=== PATIENT | female | born 1960 | race Caucasian/White ===

== ENCOUNTER 2017-11-25 13:06 | Emergency (ER) | payer BC, SELFPAY ==
[2017-11-25 13:07] VITALS: BP 127/73; PULSE 92; RESP 18; TEMP 36.8; O2SAT 98; BMI 36.8
[2017-11-25] MEDS: Acetaminophen 500 MG Tablet 1000 MG PO (14:01)
[2017-11-25] MEDS: Ondansetron ODT 4 MG Tablet 8 MG PO (14:01)
[2017-11-25 14:06] LABS: Bedside Glucose 149 mg/dL (70-110)
--- NOTE | 2017-11-25 15:28 | ED.DCSUM_ITS ---
- ER Visit Summary Date of Service: 11/25/17 Chief Complaint: Reaction to antibiotic History of Present Illness: The patient is a 57 F who presents with multiple symptoms after taking a dose of Bactrim. The patient was diagnosed with cellulitis in her left axilla and treated with Bactrim. She took 1 dose. Today she is having shaking, itching, nausea, vomiting, and a headache. She took Benadryl with minimal relief. Physical Examination: Patient is afebrile and vital signs are unremarkable. She appears uncomfortable but not toxic or in distress. HEENT exam unremarkable. Mucous membranes normal with no lesions. Eyes normal. Neck nontender. Heart regular. Lungs clear. Abdomen soft and nontender skin appears normal without rash except her left axilla shows signs of folliculitis with surrounding erythema concerning for cellulitis. No abscess or fluctuance. Test Results: Glucose was 149 Emergency Department Course and Treatment: Patient sounds like she is having an adverse reaction to Bactrim, primarily with GI upset. She has no new rash or signs of a more severe infection. She is not septic, and there is nothing to suggest complication from her skin infection. Her exam and vital signs are all reassuring. I checked her blood sugar as she has not checked it today. It was 149. I do not find any indication for other diagnostic testing. She was treated with Zofran and Tylenol. On reevaluation, she passed a PO challenge. Her headache had improved. No new or worsening symptoms. Patient will be changed to clindamycin. She will stop taking Bactrim. We will also add Zofran. Return for any new or worsening issues, otherwise follow-up with primary care. Treatment Plan: As above Disposition: Discharged Impression: 1. Folliculitis left axilla 2. Adverse reaction to Bactrim This note was generated with [employer] dictation software. It may contain incorrect words, spelling, and punctuation that were not noted in review of the chart prior to signing ED Disposition - Plan for ED Patient: Chief Complaint: Shortness of Breath Referrals: Praful Magdaleno DO [Primary Care Provider] -
--- NOTE | 2017-11-25 15:28 | ED.DEP ---
ED Disposition - Plan for ED Patient: Chief Complaint: Shortness of Breath Instructions: ED Folliculitis Prescriptions: Ondansetron [Zofran Odt] 4 mg PO Q8H PRN PRN #10 tab PRN Reason: Nausea Clindamycin HCl [Cleocin] 300 mg PO Q6H #28 cap Referrals: Praful Magdaleno DO [Primary Care Provider] -
[2017-11-25 15:56] VITALS: BP 124/71; PULSE 82; RESP 16; O2SAT 100
--- NOTE | 2017-11-26 13:01 | CM.ED ---
ED CALLBACK: Follow-up call to patient. No answer and voicemail is not an option. Will reattempt call as time allows.
== END 2017-11-25 15:58 | disposition home or self-care (01) ==
PROVIDERS: Emergency Provider Emergency Medicine; Family Provider Family Medicine; PCP Family Medicine
DX: L73.9 Follicular disorder, unspecified (principal); R51 Headache; T37.0X5A Adverse effect of sulfonamides, initial encounter; Y92.9 Unspecified place or not applicable; E11.9 Type 2 diabetes mellitus without complications; I10 Essential (primary) hypertension; E03.9 Hypothyroidism, unspecified; Z79.4 Long term (current) use of insulin; Z79.899 Other long term (current) drug therapy
CPT/HCPCS: 82962; 99282

== ENCOUNTER 2018-02-11 18:01 | Emergency (ER) | payer BC, SELFPAY ==
[2018-02-11 18:01] VITALS: BP 157/110; PULSE 91; RESP 16; TEMP 36.7; O2SAT 97; BMI 36.8
--- NOTE | 2018-02-11 20:18 | RAD_ITS ---
STUDY: X-RAY - LUMBAR SPINE REASON FOR EXAM: Female, 57 years old. Low back pain and radiculopathy. TECHNIQUE: 3 view(s) of the lumbar spine were obtained. COMPARISON: None FINDINGS: Normal lumbar lordosis. There is no substantial scoliosis. There is a normal alignment of the vertebrae. Normal vertebral bodies and endplates. Mild diffuse degenerative disc narrowing and minimal spondylitic endplate changes at L1-2, L2-3, L3-4 and L4-5. Normal posterior elements. The soft tissue structures are unremarkable. RAD/Lumbar Spine 2 or 3 Views IMPRESSION: Normal alignment of the lumbar spine without fracture, osteolytic or blastic bone lesion. Mild diffuse degenerative disc changes. Electronically Signed: Daisha Finn MD at 20:43 EDT , Service support ,
--- NOTE | 2018-02-11 20:18 | RAD_ITS ---
STUDY: X-RAY - PELVIS REASON FOR EXAM: Female, 57 years old. Low back pain radiating to legs. TECHNIQUE: One view of the pelvis was obtained. COMPARISON: None. FINDINGS: There is a non-specific bowel gas pattern. Normal visualized soft tissue structures. Enthesophyte of the iliac crests. The pelvic ring is otherwise unremarkable. Normal SI joints and sacral landmarks. Normal visualized bilateral superior and inferior pubic rami. Normal pubic symphysis. Normal ischial tuberosities. Normal visualized right femoral head. Normal right acetabulum. Normal right hip joint. Normal visualized left femoral head. Normal left acetabulum. Normal left hip joint. RAD/Pelvis 1 or 2 Views IMPRESSION: Enthesophytes of the iliac crests. Otherwise normal pelvis and hips. Electronically Signed: Daisha Finn MD at 20:46 EDT , Service support ,
[2018-02-11] MEDS: HYDROmorphone 1 MG/ML Syringe IM (21:01)
[2018-02-11] MEDS: Orphenadrine 60 MG/2 ML Ampul IM (21:01)
--- NOTE | 2018-02-11 22:03 | ED.VISSUMM ---
- ER Visit Summary Date of Service: 02/11/18 Chief Complaint: [Back pain] History of Present Illness: The patient is a 57 F [presents to the emergency department complaint of back pain for 2 weeks. Patient rates her pain currently is a 9 out of 10. Patient denies any direct trauma. Patient states that she was seen by her chiropractor who adjusted her followed by her primary care physician and no imaging was done. Patient complains of pain that radiates into her right leg as well as her left leg at times. The pain radiating into the legs is intermittent. She denies any change in bowel or bladder function. She denies weakness the extremities. She denies loss of sensation in the groin. Patient's not had any fevers. She denies urinary symptoms.] Physical Examination: [HEENT-PERRLA, EOMI. Cranial nerves II through XII grossly intact. TMs clear. Mucous membranes moist. No adenopathy. Cardiovascular-regular rate and rhythm without murmur or ectopy Lungs-clear to auscultation, chest wall stable without crepitus or subcu emphysema Abdomen-normoactive bowel sounds, soft, nontender, no rebound or rigidity, no peritoneal signs. Back exam-patient has some diffuse tenderness over lumbar paraspinal musculature bilaterally as well as the lumbar spine. Patient has a positive straight leg raise with the right leg at 40 degrees. Deep tendon reflexes are plus 2 out of 4 bilaterally at the patella and Achilles. Patient has normal L5 extension bilaterally. Patient has normal sensation to light touch. Extremities-intact ?4, normal range of motion, normal pulses, atraumatic] Test Results: [X-rays of the lumbar spine and pelvis obtained showed some mild degenerative changes otherwise nothing acute.] Emergency Department Course and Treatment: [Patient was medicated with Dilaudid and Norflex and had good pain relief] Treatment Plan: [Patient will be given a prescription for Flexeril and [place] and advised to follow-up with primary care physician 3-5 days. Patient may require further imaging such as MRI to evaluate further if symptoms do not improve. Patient advised to return if worsening pain and advised on signs of cauda equina.] Disposition: [Discharged home in stable condition] Impression: [Back pain Sciatica] This note was generated with [employer] software. It may contain incorrect words, spelling, and punctuation that were not noted in review of the chart prior to signing ED Disposition - Plan for ED Patient: Chief Complaint: Back Referrals: Praful Magdaleno DO [Primary Care Provider] -
--- NOTE | 2018-02-11 22:06 | ED.DEP ---
ED Disposition - Plan for ED Patient: Chief Complaint: Back Instructions: ED Sciatica Prescriptions: Hydrocodone Bitart/Apap 5-325 [[place] 5MG-325MG] 1 tab PO Q4H PRN PRN 2 Days #20 tab PRN Reason: Pain Cyclobenzaprine [Flexeril] 10 mg PO TID PRN #20 tab PRN Reason: Muscle Spasm Referrals: Praful Magdaleno DO [Primary Care Provider] - 3-5 Days
[2018-02-11 22:13] VITALS: BP 154/94; PULSE 81; RESP 16; O2SAT 94
== END 2018-02-11 22:15 | disposition home or self-care (01) ==
LOC: ED 20:23
PROVIDERS: Emergency Provider Emergency Medicine; Family Provider Family Medicine; PCP Family Medicine
DX: M54.9 Dorsalgia, unspecified (principal); M54.32 Sciatica, left side; M54.31 Sciatica, right side; E11.9 Type 2 diabetes mellitus without complications; I10 Essential (primary) hypertension; E78.00 Pure hypercholesterolemia, unspecified; Z79.899 Other long term (current) drug therapy; Z79.82 Long term (current) use of aspirin; E03.9 Hypothyroidism, unspecified
CPT/HCPCS: 72100; 72170; 96372; 99282

== ENCOUNTER 2018-02-13 12:42 | Emergency (ER) | payer BC, SELFPAY ==
[2018-02-13 12:42] VITALS: BP 161/99; PULSE 96; RESP 17; TEMP 36.5; O2SAT 98; BMI 37.0
--- NOTE | 2018-02-13 13:19 | VDLE_ITS ---
Reason For Study: Swelling RLE RIGHT LEFT GSV is normal. CFV is compressible, spontaneous, phasic, CFV is compressible, spontaneous, phasic, competent, and demonstrates normal competent and demonstrates normal augmentation. augmentation. FV is compressible, spontaneous, phasic, competent and demonstrates normal augmentation. POP V is compressible, spontaneous, phasic, competent and demonstrates normal augmentation. T/P Trunk is compressible. PTV is compressible. RT PerV is compressible. Procedure Exam performed portable in ED. A preliminary report was called and/or faxed to Dr. Mora. Interpretation Summary Deep veins of the right lower extremity are patent and compressible segmentally. There is no evidence of right lower extremity deep vein thrombosis. Valvular competence appears intact within the proximal deep venous system on the right . The right greater saphenous vein appears patent and compressible segmentally. Ordering Physician: Estelle Mora Referring Physician: Praful Magdaleno Performed By: Ursula Valencia RDCS, RVT
[2018-02-13] MEDS: oxyCODONE 5 MG Tablet PO (13:30)
--- NOTE | 2018-02-13 13:54 | RAD_ITS ---
STUDY: X-RAY - RIGHT KNEE REASON FOR EXAM: Female, 57 years old. Posterior knee pain TECHNIQUE: 4 view(s) of the knee. COMPARISON: None. FINDINGS: Normal visualized distal femur. Normal visualized proximal tibia and fibula. Normal proximal tibiofibular articulation. There is mild degenerative arthrosis of the medial femorotibial compartment. There is mild degenerative arthrosis of the lateral femorotibial compartment. There is mild degenerative arthrosis of the patellofemoral articulation. There is a soft tissue prominence in the suprapatellar region suggesting a small volume joint effusion. The soft tissue structures are unremarkable. RAD/Knee 4 or More Views IMPRESSION: Degenerative change right knee. No visualized acute fracture. Electronically Signed: Vera Reynoso MD at 15:47 EDT Tel , Service support ,
--- NOTE | 2018-02-13 16:12 | DCINST.ED_ITS ---
ED Disposition - Plan for ED Patient: Chief Complaint: Lower Extremity Injury Instructions: ED Sprain Knee Prescriptions: Hydrocodone Bitart/Apap 5-325 [[place] 5MG-325MG] 1 tablet PO Q6H PRN PRN 3 Days #10 tablet PRN Reason: Pain Referrals: Praful Magdaleno DO [Primary Care Provider] - Rubin Dubon MD [STAFF PHYSICIAN] -
--- NOTE | 2018-02-13 16:15 | ED.VISSUMM ---
- ER Visit Summary Date of Service: 02/13/18 Chief Complaint: Right knee pain History of Present Illness: The patient is a 57 F presenting with right knee pain. Patient states she got up today and felt a pop in her right knee. She has had persistent pain since that time. She denies any direct trauma to her knee. Denies fever. Denies other complaints. Physical Examination: Vitals are stable. Patient is afebrile. Alert no acute distress. HEENT exam is unremarkable. Lungs are clear and equal bilaterally. Heart is regular rate and rhythm. Extremities right posterior knee tenderness. No swelling or effusion. No erythema or warmth. Neurovascularly intact distally. Painful range of motion. Skin is warm and dry. No focal neurologic deficit. Remainder of exam is unremarkable. Emergency Department Course and Treatment: Ultrasound of the right lower extremity shows no evidence of DVT. X-ray of the right knee shows no acute process. She was given OxyIR p.o. She continued to have pain and was given morphine and Zofran IM. She has crutches that she can use at home. She will follow-up with Dr. Dubon. She is advised return to ED if worsening complaints. Disposition: Discharge home Impression: Right knee pain This note was generated with [employer] dictation software. It may contain incorrect words, spelling, and punctuation that were not noted in review of the chart prior to signing ED Disposition - Plan for ED Patient: Chief Complaint: Lower Extremity Injury Instructions: ED Sprain Knee Prescriptions: Hydrocodone Bitart/Apap 5-325 [[place] 5MG-325MG] 1 tablet PO Q6H PRN PRN 3 Days #10 tablet PRN Reason: Pain Referrals: Praful Magdaleno DO [Primary Care Provider] - Rubin Dubon MD [STAFF PHYSICIAN] -
[2018-02-13] MEDS: Ondansetron 4 MG/2 ML Vial IM (16:25)
[2018-02-13] MEDS: morphine 8 MG/ML Syringe 6 MG IM (16:25)
[2018-02-13 16:45] VITALS: PULSE 68; RESP 14
== END 2018-02-13 16:46 | disposition home or self-care (01) ==
PROVIDERS: Emergency Provider Emergency Medicine; Family Provider Family Medicine; PCP Family Medicine
DX: M25.561 Pain in right knee (principal); E11.9 Type 2 diabetes mellitus without complications; I10 Essential (primary) hypertension; F32.9 Major depressive disorder, single episode, unspecified
CPT/HCPCS: 73564; 93971; 96372; 99282; J2405

== ENCOUNTER → 2018-04-01 10:35 | Outpatient (CLI) | payer BC, SELFPAY ==
--- NOTE | 2018-04-01 10:48 | EKG12_ITS ---
Test Reason : PREOP Blood Pressure : / mmHG Vent. Rate : 106 BPM Atrial Rate : 106 BPM P-R Int : 146 ms QRS Dur : 074 ms QT Int : 364 ms P-R-T Axes : 057 023 049 degrees QTc Int : 483 ms Sinus tachycardia Otherwise normal ECG Confirmed by NUBIA RODRIGUEZ, SAMSON ([id number]), video effects editor TAWANNA VÁSQUEZ ([id number]) on 04/03/2018 2:00:37 PM Referred By: Ej Griffith Confirmed By:SAMSON DELACRUZ MD
[2018-04-01 11:43] LABS: Absolute Lymphocyte Count 3.08 X10^3/ul (0.83-4.51); Absolute Neutrophil Count 4.3 X10^3/uL (2.0-7.7); Basophil# 0.03 X10^3/uL; Basophil% 0.4 % (0-1); Eosinophil# 0.16 X10^3/uL; Eosinophils% 1.9 % (0-5); Hematocrit 47.5 % (37-47); Hemoglobin 15.9 g/dl (12.0-15.0); Lymphocyte # 3.08 X10^3/ul (4.0); Mean Corp Hgb Conc 33.5 g/gl (32-36); Mean Corpuscular Hgb 29.8 pg (27.0-32.0); Mean Platelet Vol. 10.4 fl (6.2-12.0); Monocyte# 0.99 X10^3/uL; Monocyte% 11.6 % (0-10); Neutrophil # 4.28 X10^3/uL (2.7-7.7); Platelet Count 296 K/mm3 (150-450); RBC Distribution Width CV 14.5 % (11.6-14.6); RBC Distribution Width SD 47.2 fl (35.1-43.9); Red Blood Count 5.34 M/mm3 (4.2-5.4); White Blood Count 8.6 K/mm3 (4.4-11.0)
[2018-04-01 11:45] LABS: POSITIVE COUNT NO; POSITIVE DIFFERENTIAL NO; POSITIVE MORPHOLOGY NO
[2018-04-01 12:04] LABS: Hemoglobin A1c 7.2 % (4.2-6.3)
[2018-04-01 12:08] LABS: Anion Gap 10 (5-15); BUN 26 mg/dL (7-18); BUN/Creat Ratio 27.5 RATIO (10-20); Chloride 99 mmol/L (98-107); Creatinine, Serum 0.94 mg/dL (0.55-1.02); EST Glomerular Filtration Rate 65 mL/min (>60); Est Glom Filt Rate - Afr Amer 79 mL/min (>60); Glucose 146 mg/dL (74-106); Potassium 3.5 mmol/L (3.5-5.1); Sodium Level 141 mmol/L (136-145)
--- OUTSIDE RECORDS SUMMARY | 2018-05-27 19:04 | XMS RPT_ITS ---
:1960 Author Organization [place] Care Team Providers Name Role Phone JOEL GARCIA MD Attending Unavailable SHARLA DO, PRAFUL D Primary Care Unavailable NICOLE FERREIRA, DR. ESCUDERO Attending Unavailable SHARLA DO, PRAFUL D Primary Care Unavailable Sharla, Praful Primary Care Unavailable Casey Brown Attending Unavailable Sharla, Praful Primary Care Unavailable Fox Rod Attending Unavailable [place], Praful Primary Care Unavailable [place], Remus Attending Unavailable [place], Praful Primary Care Unavailable [facility], [place]elle Attending Unavailable Ej Griffith Attending Unavailable Ej Griffith Referring Unavailable Sharla, Praful Primary Care Unavailable Wilber Madrid Attending Unavailable Ej Griffith Referring Unavailable PROBLEMS PROBLEMS DATE TYPE CONDITION / CODE ATTENDING STATUS SOURCE 04/01/2018 Unknown Z01.818 - Encounter Ej Griffith Active [place] for other [facility] preprocedural Hospital examination / Repository Z01.818(ICD-10) 04/01/2018 Unknown Z01.810 - Encounter Ej Griffith Active [place]ián for preprocedural [facility] cardiovascular Hospital examination / Repository Z01.810(ICD-10) 04/10/2018 Unknown R00.0 - Tachycardia, Wilber Madrid Active Fabián unspecified / Community R00.0(ICD-10) Hospital Repository 02/13/2018 Unknown S83.91XA - Sprain of [facility], Active [place] unspecified site of [facility] right knee, initial Hospital encounter / Repository S83.91XA(ICD-10) 02/11/2018 Unknown M54.30 - Sciatica, Ungur, Remus Active [place] unspecified side / Community M54.30(ICD-10) Hospital Repository PROCEDURES PROCEDURES No Procedure Records FoundRESULTS RESULTS 12 LEAD ELECTROCARDIOGRAM Observed: 04/03/2018 Status: F Source: [place] 2:00 PM [facility] REPOSITORY [facility] Cardiovascular Services [address] [place] [address] 12 Lead EKG 04/01/18 1110 MR#: [id number] Acct: [id number] Name: VIVIAN SOUSA Jamilah Rep #: [id number] : 1960 57 From: Wilber Madrid MD Attending Dr: Ej Mcclain Status: REG CLI Ordering Dr: Ej Griffith PA-C Date: 04/01/18 Location: LAB Sex: F C Admitted: Test Reason : PREOP Blood Pressure : / mmHG Vent. Rate : 106 BPM Atrial Rate : 106 BPM P-R Int : 146 ms QRS Dur : 074 ms QT Int : 364 ms P-R-T Axes : 057 023 049 degrees QTc Int : 483 ms Sinus tachycardia Otherwise normal ECG Confirmed by NUBIA RODRIGUEZ, WILBER ([id number]), loan expeditor TAWANNA VÁSQUEZ ([id number]) on 04/03/2018 2:00:37 PM Referred By: Ej Griffith Confirmed By:WILBER MADRID MD 04/03/18 1400 Date Wilber Madrid MD CC: Praful Magdaleno DO; Ej Griffith PA Signed CBC W/DIFF, AUTOMATED Collected: 04/01/2018 Status: F Source: [place] 10:41 AM [facility] REPOSITORY TYPE CODE TESTS RESULT OUT OF RANGE REFERENCE UNITS LAB L100.1000 4.4-11.0 K/mm3 Normal WBC 8.6 LAB L100.1200 4.2-5.4 M/mm3 Normal RBC 5.34 LAB L100.1300 12.0-15.0 g/dl High HGB 15.9 LAB L100.1400 37-47 % High HCT 47.5 LAB L100.1500 81-99 fL Normal MCV 89.0 LAB L100.1600 27.0-32.0 pg Normal MCH 29.8 LAB L100.1700 32-36 g/gl Normal MCHC 33.5 LAB L100.1810 11.6-14.6 % Normal RDW CV 14.5 LAB L100.1820 35.1-43.9 fl High RDW SD 47.2 LAB L100.1900 150-450 K/mm3 Normal PLT 296 LAB L100.2000 6.2-12.0 fl Normal MPV 10.4 LAB L100.2100 47-70 % Normal NEUT% 50.0 LAB L100.2200 19-41 % Normal LY% 36.0 LAB L100.2300 0-10 % High MONO% 11.6 LAB L100.2400 0-5 % Normal EO% 1.9 LAB L100.2500 0-1 % Normal BASO% 0.4 LAB L100.2550 0.0-0.9 % Normal IM GRAN % 0.100 Result Comment: IG% - Immature Granulocytes (promyelocytes, myelocytes and metamyelocytes) > 1% indicates that a LEFT SHIFT is Present. LAB L100.2620 2.0-7.7 X10 3/uL Normal Absolute Neut 4.3 LAB L100.2720 0.83-4.51 X10 3/ul Normal Absolute Lymph 3.08 Performed By: #### L100.0100 #### [facility] [address] [place], [address] HEMOGLOBIN A1C Collected: 04/01/2018 Status: F Source: [place] 10:41 AM [facility] REPOSITORY TYPE CODE TESTS RESULT OUT OF RANGE REFERENCE UNITS LAB L501.9985 4.2-6.3 % High HGB A1C 7.2 Performed By: #### L501.9985 #### [facility] [address] [place], [address] BASIC METABOLIC Collected: 04/01/2018 Status: F Source: [place] PROFILE (BMP) 10:41 AM [facility] REPOSITORY TYPE CODE TESTS RESULT OUT OF RANGE REFERENCE UNITS LAB L501.0100 74-106 mg/dL High GLU 146 Result Comment: Fasting Glucose result greater than or equal to 126 mg/dL suggests DIABETES MELLITUS per A.D.A. criteria. Please note revised GLUCOSE reference range effective 2017. LAB L501.1000 7-18 mg/dL High BUN 26 LAB L501.1100 0.55-1.02 mg/dL Normal CREAT,SERUM 0.94 Result Comment: The validity of the calculated GFR AND GFRAA in patients over 70 years has not been determined. Clinical correlation is essential. LAB L501.1110 >60 mL/min Normal EST GFR 65 Result Comment: Non- GFR Calc LAB L501.1115 >60 mL/min Normal EST GFR - AA 79 Result Comment: GFR Calc LAB L501.1300 10-20 RATIO High BUN/CRE 27.5 LAB L501.2200 8.5-10.1 mg/dL CA Normal 10.0 LAB L501.5300 136-145 mmol/L NA Normal 141 LAB L501.5600 3.5-5.1 mmol/L K Normal 3.5 LAB L501.5900 98-107 mmol/L CL Normal 99 LAB L501.6100 21.0-32.0 mmol/L Normal CO2 32.0 LAB L501.6200 5-15 Normal GAP 10 Performed By: #### L500.2500 #### [facility] [address] [place], [address] FINAL SURGICAL Observed: 02/23/2018 Status: F Source: [facility] PATHOLOGY REPORT 11:15 AM [facility] REPOSITORY . Pathology Reports Accession: Collected Date/Time: Received Date/Time: Pathologist: [id number] 02/23/2018 11:15 EDT 02/24/2018 08:32 EDT MD RIC MUNROE Final Surgical Pathology Report DIAGNOSIS: STOMACH, BIOPSY: MILD CHRONIC GASTRITIS. NEGATIVE FOR H. PYLORI. COMMENT: D # [id number] CLINICAL INFORMATION: Procedure: EGD WITH ANTRAL GASTRIC BIOPSIES Preoperative diagnosis: GERD Postoperative diagnosis: SAME SPECIMEN: A STOM, BX- ANTRAL GASTRIC BIOPSIES GROSS DESCRIPTION: Received in formalin labeled gastric antrum biopsy are 3 barrett glistening soft tissues ranging from 0.3-0.9 cm. TS -1 Dictated by Karmen GUILLEN ([facility]) MICROSCOPIC DESCRIPTION: Slides reviewed. Electronically Signed by Pathology Report verified by [facility] Electronically signed by RIC MUNROE MD Sign out Date: 02/25/2018 12:30 Performing Lab: [facility], [address] [place] [address] Performed By: #### SPFR #### [place] [address] VENOUS DUPLEX LOWER Observed: 02/15/2018 Status: F Source: [place] EXTREMITY 9:15 AM [facility] REPOSITORY [facility] Cardiovascular Services [address] [place] [address] Venous Duplex US, Unilateral 02/13/18 1328 MR#: [id number] Acct: [id number] Name: VIVIAN SOUSA Rep #: [id number] : 1960 57 From: Devon Godinez MD Attending Dr: Status: DEP ER Ordering Dr: Estelle Mora MD Date: 02/13/18 Location: ED Sex: F C Admitted: Reason For Study: Swelling RLE RIGHT LEFT GSV is normal. CFV is compressible, spontaneous, phasic, CFV is compressible, spontaneous, phasic, competent, and demonstrates normal competent and demonstrates normal augmentation. augmentation. FV is compressible, spontaneous, phasic, competent and demonstrates normal augmentation. POP V is compressible, spontaneous, phasic, competent and demonstrates normal augmentation. T/P Trunk is compressible. PTV is compressible. RT PerV is compressible. Procedure Exam performed portable in ED. A preliminary report was called and/or faxed to Dr. Mora. Interpretation Summary Deep veins of the right lower extremity are patent and compressible segmentally. There is no evidence of right lower extremity deep vein thrombosis. Valvular competence appears intact within the proximal deep venous system on the right . The right greater saphenous vein appears patent and compressible segmentally. Ordering Physician: Estelle Mora Referring Physician: Praful Magdaleno Performed By: Ursula Valencia, SANDRA, RVT 02/15/18913 Date Devon Godinez MD CC: Estelle Mora MD; Praful Magdaleno DO Date Dictated: 02/13/18 1328 Date Transcribed: 02/15/18913 Office Rental Clerk: Signed EMERGENCY DEPARTMENT Observed: 02/13/2018 Status: F Source: [place] SUMMARY 4:18 PM [facility] REPOSITORY [facility] Medical Records Department [address] [place] [address] Emergency Department Summary 02/13/18 1615 MR#: [id number] Acct: [id number] Name: VIVIAN SOUSA Rep #: [id number] : 1960 57 From: Estelle Mora MD PCP: Praful Magdaleno DO Status: DEP ER - ER Visit Summary Date of Service: 02/13/18 Chief Complaint: Right knee pain History of Present Illness: The patient is a 57 F presenting with right knee pain. Patient states she got up today and felt a pop in her right knee. She has had persistent pain since that time. She denies any direct trauma to her knee. Denies fever. Denies other complaints. Physical Examination: Vitals are stable. Patient is afebrile. Alert no acute distress. HEENT exam is unremarkable. Lungs are clear and equal bilaterally. Heart is regular rate and rhythm. Extremities right posterior knee tenderness. No swelling or effusion. No erythema or warmth. Neurovascularly intact distally. Painful range of motion. Skin is warm and dry. No focal neurologic deficit. Remainder of exam is unremarkable. Emergency Department Course and Treatment: Ultrasound of the right lower extremity shows no evidence of DVT. X-ray of the right knee shows no acute process. She was given OxyIR p.o. She continued to have pain and was given morphine and Zofran IM. She has crutches that she can use at home. She will follow-up with Dr. Dubon. She is advised return to ED if worsening complaints. Disposition: Discharge home Impression: Right knee pain This note was generated with [employer] dictation software. It may contain incorrect words, spelling, and punctuation that were not noted in review of the chart prior to signing ED Disposition - Plan for ED Patient: Chief Complaint: Lower Extremity Injury Instructions: ED Sprain Knee Prescriptions: Hydrocodone Bitart/Apap 5-325 [[place] 5MG-325MG] 1 tablet PO Q6H PRN PRN 3 Days #10 tablet PRN Reason: Pain Referrals: Praful Magdaleno DO [Primary Care Provider] - Rubin Dubon MD [STAFF PHYSICIAN] - What to do if you have Problems For any increased pain, shortness of breath, bleeding, nausea or vomiting, chest pain, or any unexpected problems, contact your Primary Care Provider. Call [facility] ([phone]) or report to the closest Emergency Room. Call 911 if necessary. 02/13/18 5524 <Electronically signed by Estelle Mora MD> Date Estelle Mora MD Cosigner Signature (If Indicated): Date CC: Praful Magdaleno DO DISCHARGE INSTRUCTION Observed: 02/13/2018 Status: F Source: [place] 4:12 PM [facility] REPOSITORY [facility] Medical Records Department [address] [place] [address] Discharge Instruction 02/13/181609 MR#: [id number] Acct: [id number] Name: VIVIAN SOUSA Rep #: [id number] : 1960 57 From: Estelle Mora MD PCP: Praful Magdaleno DO Status: REG ER ED Disposition - Plan for ED Patient: Chief Complaint: Lower Extremity Injury Instructions: ED Sprain Knee Prescriptions: Hydrocodone Bitart/Apap 5-325 [[place] 5MG-325MG] 1 tablet PO Q6H PRN PRN 3 Days #10 tablet PRN Reason: Pain Referrals: Praful Magdaleno DO [Primary Care Provider] - Rubin Dubon MD [STAFF PHYSICIAN] - What to do if you have Problems For any increased pain, shortness of breath, bleeding, nausea or vomiting, chest pain, or any unexpected problems, contact your Primary Care Provider. Call [facility] ([phone]) or report to the closest Emergency Room. Call 911 if necessary. 02/13/181611 <Electronically signed by Estelle Mora MD> Date Estelle Mora MD Cosigner Signature (If Indicated): Date CC: Praful Magdaleno DO KNEE 4 OR MORE Observed: 02/13/2018 Status: F Source: [place] VIEWS 1:20 PM [facility] REPOSITORY [facility] Imaging Services [address] [place] [address] Knee 4 or More Views MR#: [id number] Acct: [id number] Name: VIVIAN SOUSA Rep #: [id number] : 1960 F 57 From: Vera Reynoso MD PCP: Praful Magdaleno DO Status: REG ER Study: Knee 4 or More Views Date of Exam: 02/13/18 Exam# [id number] Ordering Dr: Estelle Mora MD STUDY: X-RAY - RIGHT KNEE REASON FOR EXAM: Female, 57 years old. Posterior knee pain TECHNIQUE: 4 view(s) of the knee. COMPARISON: None. FINDINGS: Normal visualized distal femur. Normal visualized proximal tibia and fibula. Normal proximal tibiofibular articulation. There is mild degenerative arthrosis of the medial femorotibial compartment. There is mild degenerative arthrosis of the lateral femorotibial compartment. There is mild degenerative arthrosis of the patellofemoral articulation. There is a soft tissue prominence in the suprapatellar region suggesting a small volume joint effusion. The soft tissue structures are unremarkable. RAD/Knee 4 or More Views IMPRESSION: Degenerative change right knee. No visualized acute fracture. Electronically Signed: Vera Reynoso MD at 15:47 EDT Tel , Service support , CC: Estelle Mora MD; Praful Magdaleno DO Office Rental Clerk: Signed DISCHARGE INSTRUCTION Observed: 02/11/2018 Status: F Source: [place] 10:08 PM [facility] REPOSITORY [facility] Medical Records Department [address] [place] [address] Discharge Instruction 02/11/18 2206 MR#: [id number] Acct: [id number] Name: MERRYVIVIAN Conteh Jamilah Rep #: [id number] : 1960 57 From: Akira Calvert DO PCP: Praful Magdaleno DO Status: REG ER ED Disposition - Plan for ED Patient: Chief Complaint: Back Instructions: ED Sciatica Prescriptions: Hydrocodone Bitart/Apap 5-325 [[place] 5MG-325MG] 1 tab PO Q4H PRN PRN 2 Days #20 tab PRN Reason: Pain Cyclobenzaprine [Flexeril] 10 mg PO TID PRN #20 tab PRN Reason: Muscle Spasm Referrals: Praful Magdaleno DO [Primary Care Provider] - 3-5 Days What to do if you have Problems For any increased pain, shortness of breath, bleeding, nausea or vomiting, chest pain, or any unexpected problems, contact your Primary Care Provider. Call [facility] ([phone]) or report to the closest Emergency Room. Call 911 if necessary. 02/11/182207 <Electronically signed by Akira Calvert DO> Date Akira Calvert DO Cosigner Signature (If Indicated): Date CC: Praful Magdaleno DO EMERGENCY DEPARTMENT Observed: 02/11/2018 Status: F Source: [place] SUMMARY 10:06 PM [facility] REPOSITORY [facility] Medical Records Department [address] [place] [address] Emergency Department Summary 02/11/182202 MR#: [id number] Acct: [id number] Name: MERRYNISHANT ContehRA Askew Rep #: [id number] : 1960 57 From: Akira Calvert DO PCP: Praful Magdaleno DO Status: REG ER - ER Visit Summary Date of Service: 02/11/18 Chief Complaint: [Back pain] History of Present Illness: The patient is a 57 F [presents to the emergency department complaint of back pain for 2 weeks. Patient rates her pain currently is a 9 out of 10. Patient denies any direct trauma. Patient states that she was seen by her chiropractor who adjusted her followed by her primary care physician and no imaging was done. Patient complains of pain that radiates into her right leg as well as her left leg at times. The pain radiating into the legs is intermittent. She denies any change in bowel or bladder function. She denies weakness the extremities. She denies loss of sensation in the groin. Patient's not had any fevers. She denies urinary symptoms.] Physical Examination: [HEENT-PERRLA, EOMI. Cranial nerves II through XII grossly intact. TMs clear. Mucous membranes moist. No adenopathy. Cardiovascular-regular rate and rhythm without murmur or ectopy Lungs-clear to auscultation, chest wall stable without crepitus or subcu emphysema Abdomen-normoactive bowel sounds, soft, nontender, no rebound or rigidity, no peritoneal signs. Back exam-patient has some diffuse tenderness over lumbar paraspinal musculature bilaterally as well as the lumbar spine. Patient has a positive straight leg raise with the right leg at 40 degrees. Deep tendon reflexes are plus 2 out of 4 bilaterally at the patella and Achilles. Patient has normal L5 extension bilaterally. Patient has normal sensation to light touch. Extremities-intact 4, normal range of motion, normal pulses, atraumatic] Test Results: [X-rays of the lumbar spine and pelvis obtained showed some mild degenerative changes otherwise nothing acute.] Emergency Department Course and Treatment: [Patient was medicated with Dilaudid and Norflex and had good pain relief] Treatment Plan: [Patient will be given a prescription for Flexeril and [place] and advised to follow-up with primary care physician 3-5 days. Patient may require further imaging such as MRI to evaluate further if symptoms do not improve. Patient advised to return if worsening pain and advised on signs of cauda equina.] Disposition: [Discharged home in stable condition] Impression: [Back pain Sciatica] This note was generated with [employer] software. It may contain incorrect words, spelling, and punctuation that were not noted in review of the chart prior to signing ED Disposition - Plan for ED Patient: Chief Complaint: Back Referrals: Praful Magdaleno, [Primary Care Provider] - What to do if you have Problems For any increased pain, shortness of breath, bleeding, nausea or vomiting, chest pain, or any unexpected problems, contact your Primary Care Provider. Call [facility] ([phone]) or report to the closest Emergency Room. Call 911 if necessary. 02/11/18 2206 <Electronically signed by Akira Calvert DO> Date Akira Calvert DO Cosigner Signature (If Indicated): Date CC: Praful Magdaleno DO LUMBAR SPINE 2 OR 3 Observed: 02/11/2018 Status: F Source: [place] VIEWS 8:19 PM [facility] REPOSITORY [facility] Imaging Services [address] [place] [address] Lumbar Spine 2 or 3 Views MR#: [id number] Acct: [id number] Name: VIVIAN SOUSA Rep #: [id number] : 1960 F 57 From: Daisha Finn MD PCP: Praful Magdaleno DO Status: REG ER Study: Lumbar Spine 2 or 3 Views Date of Exam: 02/11/18 Exam# [id number] Ordering Dr: Akira Calvert DO STUDY: X-RAY - LUMBAR SPINE REASON FOR EXAM: Female, 57 years old. Low back pain and radiculopathy. TECHNIQUE: 3 view(s) of the lumbar spine were obtained. COMPARISON: None FINDINGS: Normal lumbar lordosis. There is no substantial scoliosis. There is a normal alignment of the vertebrae. Normal vertebral bodies and endplates. Mild diffuse degenerative disc narrowing and minimal spondylitic endplate changes at L1-2, L2-3, L3-4 and L4-5. Normal posterior elements. The soft tissue structures are unremarkable. RAD/Lumbar Spine 2 or 3 Views IMPRESSION: Normal alignment of the lumbar spine without fracture, osteolytic or blastic bone lesion. Mild diffuse degenerative disc changes. Electronically Signed: Daisha Finn MD at 20:43 EDT , Service support , CC: Praful Magdaleno DO; Akira Calvert DO Office Rental Clerk: Signed PELVIS 1 OR 2 VIEWS Observed: 02/11/2018 Status: F Source: [place] 8:19 PM [facility] REPOSITORY [facility] Imaging Services [address] [place] [address] [place] [address] Pelvis 1 or 2 Views MR#: [id number] Acct: [id number] Name: VIVIAN SOUSA Rep #: [id number] : 1960 F 57 From: Daisha Finn MD PCP: Praful Magdaleno DO Status: REG ER Study: Pelvis 1 or 2 Views Date of Exam: 02/11/18 Exam# [id number] Ordering Dr: Akira Calvert DO STUDY: X-RAY - PELVIS REASON FOR EXAM: Female, 57 years old. Low back pain radiating to legs. TECHNIQUE: One view of the pelvis was obtained. COMPARISON: None. FINDINGS: There is a non-specific bowel gas pattern. Normal visualized soft tissue structures. Enthesophyte of the iliac crests. The pelvic ring is otherwise unremarkable. Normal SI joints and sacral landmarks. Normal visualized bilateral superior and inferior pubic rami. Normal pubic symphysis. Normal ischial tuberosities. Normal visualized right femoral head. Normal right acetabulum. Normal right hip joint. Normal visualized left femoral head. Normal left acetabulum. Normal left hip joint. RAD/Pelvis 1 or 2 Views IMPRESSION: Enthesophytes of the iliac crests. Otherwise normal pelvis and hips. Electronically Signed: Daisha Finn MD at 20:46 EDT , Service support , CC: Praful Magdaleno DO; Akira Calvert DO Office Rental Clerk: Signed PROGRESS Observed: 02/11/2018 Status: COMPLETED Source: [place] 5:16 PM [facility] REPOSITORY HNO ID: [id number] Author: Caty ([place]) Service: (none) Author Type: Nurse Practitioner Type: Progress Notes Filed: 02/11/2018 7:24 PM Note Text: Subjective HPI HPI Vivian Sousa is a 57 year old female who presents today for CC of severe leg pain. This started 2 weeks ago, had pain before falling, worse pain after falling. Is noticing weakness in right leg. Rates pain 9/10. .Patient presents with: Pain, Back: right hip to foot x 2 weeks No past medical history on file. No past surgical history on file. ALLERGIES Sudafed [Pseudoephedrine Hcl] MEDICATIONS sertraline (ZOLOFT) 100 mg tablet Take 100 mg by mouth once daily. Levothyroxine 100 mcg cap Take by mouth. empagliflozin (JARDIANCE) 25 mg tablet Take 25 mg by mouth daily with breakfast. pantoprazole DR (PROTONIX) 40 mg tablet Take 40 mg by mouth once daily. cranberry fruit extract (CRANBERRY ORAL) Take by mouth. cholecalciferol, vitamin D3, (VITAMIN D3 ORAL) Take by mouth. multivit-min/iron/folic/lutein (ULTIMATE WOMEN'S COMPLETE 50+ ORAL) Take by mouth. aspirin 81 mg chewable tablet Take 81 mg by mouth once daily. docosahexanoic acid/epa (FISH OIL ORAL) Take by mouth. SUCRALFATE ORAL Take 40 mg by mouth once daily. insulin glargine,hum.rec.anlog (TOUJEO MAX U-300 SOLOSTAR SUBCUTANEOUS) Inject 42 mg subcutaneously. aspirin/acetaminophen/caffeine (EXCEDRIN MIGRAINE ORAL) Take by mouth. aspirin-caffeine (ANGELO BACK AND BODY) 500-32.5 mg tab Take by mouth. No family history on file. Social History Substance Use Topics - Smoking status: Never Smoker - Smokeless tobacco: Never Used - Alcohol use Not on file Review of Systems Constitutional: Negative for chills, fever and weight loss. Cardiovascular: Negative for leg swelling. Gastrointestinal: Negative for abdominal pain, constipation, diarrhea, nausea and vomiting. Genitourinary: Negative for dysuria, flank pain, frequency, hematuria and urgency. Musculoskeletal: Positive for back pain. Skin: Negative for rash. Neurological: Negative for sensory change and focal weakness. Objective Blood pressure 122/80, pulse 76, temperature 37 ?C (98.6 ?F), temperature source Tympanic, resp. rate 16, weight 79.8 kg (176 lb). Physical Exam Constitutional: She appears distressed (d/t severe leg pain). ASSESSMENT/PLAN: 1. Pain of right lower extremity - ICD9: 729.5, ICD10: M79.604 -concerns raised with severity of pain, patient concerned about pain control. -Ir recommend ER evaluation/treatment -patient to drive pov to [facility] [place] Observed: 02/11/2018 Status: COMPLETED Source: [place] 5:00 PM [facility] REPOSITORY Office Visit (WSTR) VIVIAN SOUSA ([id number]) 1960 F Date Time Provider Department 02/11/18 5:00 PM CATY MURILLO ([place]) [facility] During your visit today, we recorded the following information about you: Temperature Pulse Respiration Blood pressure 98.6 degrees 76/minute 16/minute 122/80 Weight 79.8 kg Caty Murillo APRN.CNP 02/11/2018 7:24 PM Signed Subjective HPI HPI Vivainra Jamilah Sousa is a 57 year old female who presents today for CC of severe leg pain. This started 2 weeks ago, had pain before falling, worse pain after falling. Is noticing weakness in right leg. Rates pain 01/12. .Patient presents with: Pain, Back: right hip to foot x 2 weeks No past medical history on file. No past surgical history on file. ALLERGIES Sudafed [Pseudoephedrine Hcl] MEDICATIONS sertraline (ZOLOFT) 100 mg tablet Take 100 mg by mouth once daily. Levothyroxine 100 mcg cap Take by mouth. empagliflozin (JARDIANCE) 25 mg tablet Take 25 mg by mouth daily with breakfast. pantoprazole DR (PROTONIX) 40 mg tablet Take 40 mg by mouth once daily. cranberry fruit extract (CRANBERRY ORAL) Take by mouth. cholecalciferol, vitamin D3, (VITAMIN D3 ORAL) Take by mouth. multivit-min/iron/folic/lutein (ULTIMATE WOMEN'S COMPLETE 50+ ORAL) Take by mouth. aspirin 81 mg chewable tablet Take 81 mg by mouth once daily. docosahexanoic acid/epa (FISH OIL ORAL) Take by mouth. SUCRALFATE ORAL Take 40 mg by mouth once daily. insulin glargine,hum.rec.anlog (TOUJEO MAX U-300 SOLOSTAR SUBCUTANEOUS) Inject 42 mg subcutaneously. aspirin/acetaminophen/caffeine (EXCEDRIN MIGRAINE ORAL) Take by mouth. aspirin-caffeine (ANGELO BACK AND BODY) 500-32.5 mg tab Take by mouth. No family history on file. Social History Substance Use Topics - Smoking status: Never Smoker - Smokeless tobacco: Never Used - Alcohol use Not on file Review of Systems Constitutional: Negative for chills, fever and weight loss. Cardiovascular: Negative for leg swelling. Gastrointestinal: Negative for abdominal pain, constipation, diarrhea, nausea and vomiting. Genitourinary: Negative for dysuria, flank pain, frequency, hematuria and urgency. Musculoskeletal: Positive for back pain. Skin: Negative for rash. Neurological: Negative for sensory change and focal weakness. Objective Blood pressure 122/80, pulse 76, temperature 37 ?C (98.6 ?F), temperature source Tympanic, resp. rate 16, weight 79.8 kg (176 lb). Physical Exam Constitutional: She appears distressed (d/t severe leg pain). ASSESSMENT/PLAN: 1. Pain of right lower extremity - ICD9: 729.5, ICD10: M79.604 -concerns raised with severity of pain, patient concerned about pain control. 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 EMPAGLIFLOZIN 25 MG TABLET Take 25 mg by mouth daily wit* PANTOPRAZOLE 40 MG TABLET,DEL* Take 40 mg by mouth once alesia* CRANBERRY ORAL Take by mouth. VITAMIN D3 ORAL Take by mouth. ULTIMATE WOMEN'S COMPLETE 50+* Take by mouth. ASPIRIN 81 MG CHEWABLE TABLET Take 81 mg by mouth once alesia* FISH OIL ORAL Take by mouth. SUCRALFATE ORAL Take 40 mg by mouth once alesia* TOUJEO MAX U-300 SOLOSTAR SUB* Inject 42 mg subcutaneously. EXCEDRIN MIGRAINE ORAL Take by mouth. ASPIRIN-CAFFEINE 500 MG-32.5 * Take by mouth. Problem List As Of Date: 02/11/2018 (None) Encounter Status:Closed by CATY MURILLO CNP on 02/11/18 EMERGENCY DEPARTMENT Observed: 11/25/2017 Status: F Source: [place] SUMMARY 3:41 PM [facility] REPOSITORY [facility] Medical Records Department [address] [place] [address] Emergency Department Summary 11/25/17 1524 MR#: [id number] Acct: [id number] Name: VIVIAN SOUSA Jamilah Rep #: [id number] : 1960 57 From: Fox Rod MD PCP: Praful Magdaleno DO Status: REG ER - ER Visit Summary Date of Service: 11/25/17 Chief Complaint: Reaction to antibiotic History of Present Illness: The patient is a 57 F who presents with multiple symptoms after taking a dose of Bactrim. The patient was diagnosed with cellulitis in her left axilla and treated with Bactrim. She took 1 dose. Today she is having shaking, itching, nausea, vomiting, and a headache. She took Benadryl with minimal relief. Physical Examination: Patient is afebrile and vital signs are unremarkable. She appears uncomfortable but not toxic or in distress. HEENT exam unremarkable. Mucous membranes normal with no lesions. Eyes normal. Neck nontender. Heart regular. Lungs clear. Abdomen soft and nontender skin appears normal without rash except her left axilla shows signs of folliculitis with surrounding erythema concerning for cellulitis. No abscess or fluctuance. Test Results: Glucose was 149 Emergency Department Course and Treatment: Patient sounds like she is having an adverse reaction to Bactrim, primarily with GI upset. She has no new rash or signs of a more severe infection. She is not septic, and there is nothing to suggest complication from her skin infection. Her exam and vital signs are all reassuring. I checked her blood sugar as she has not checked it today. It was 149. I do not find any indication for other diagnostic testing. She was treated with Zofran and Tylenol. On reevaluation, she passed a PO challenge. Her headache had improved. No new or worsening symptoms. Patient will be changed to clindamycin. She will stop taking Bactrim. We will also add Zofran. Return for any new or worsening issues, otherwise follow-up with primary care. Treatment Plan: As above Disposition: Discharged Impression: 1. Folliculitis left axilla 2. Adverse reaction to Bactrim This note was generated with [employer] dictation software. It may contain incorrect words, spelling, and punctuation that were not noted in review of the chart prior to signing ED Disposition - Plan for ED Patient: Chief Complaint: Shortness of Breath Referrals: Praful Magdaleno, DO [Primary Care Provider] - What to do if you have Problems For any increased pain, shortness of breath, bleeding, nausea or vomiting, chest pain, or any unexpected problems, contact your Primary Care Provider. Call [facility] ([phone]) or report to the closest Emergency Room. Call 911 if necessary. 11/25/17 1544 <Electronically signed by Fox Rod MD> Date Fox oRd MD Cosigner Signature (If Indicated): Date CC: Praful Magdaleno DO DISCHARGE INSTRUCTION Observed: 11/25/2017 Status: F Source: [place] 3:41 PM [facility] REPOSITORY [facility] Medical Records Department [address] [place] [address] Discharge Instruction 11/25/17 1528 MR#: [id number] Acct: [id number] Name: VIVIAN SOUSA Rep #: [id number] : 1960 57 From: Fxo Rod MD PCP: Praful Magdaleno DO Status: REG ER ED Disposition - Plan for ED Patient: Chief Complaint: Shortness of Breath Instructions: ED Folliculitis Prescriptions: Ondansetron [Zofran Odt] 4 mg PO Q8H PRN PRN #10 tab PRN Reason: Nausea Clindamycin HCl [Cleocin] 300 mg PO Q6H #28 cap Referrals: Praful Magdaleno DO [Primary Care Provider] - What to do if you have Problems For any increased pain, shortness of breath, bleeding, nausea or vomiting, chest pain, or any unexpected problems, contact your Primary Care Provider. Call [facility] ([phone]) or report to the closest Emergency Room. Call 911 if necessary. 11/25/17 1541 <Electronically signed by Fox Rod MD> Date Fox Rod MD Cosigner Signature (If Indicated): Date CC: Praful Magdaleno DO BEDSIDE GLUCOSE Collected: 11/25/2017 Status: F Source: [place] 1:59 PM [facility] REPOSITORY TYPE CODE TESTS RESULT OUT OF REFERENCE UNITS RANGE LAB L501.080 70-110 mg/dL High BEDSIDE GLU 149 Result Comment: MANAGEMENT OF PATIENT CARE PER NURSING PROTOCOL Performed By: #### L501.080 #### [facility] Point of Care [address] [place] [address] BEDSIDE GLUCOSE Collected: 05/06/2017 Status: F Source: [place] 9:16 PM [facility] REPOSITORY TYPE CODE TESTS RESULT OUT OF RANGE REFERENCE UNITS LAB L501.080 70-110 mg/dL Normal BEDSIDE GLU 101 Result Comment: MANAGEMENT OF PATIENT CARE PER NURSING PROTOCOL Performed By: #### L501.080 #### [facility] Point of Care [address] [place] [address] EMERGENCY DEPARTMENT Observed: 05/06/2017 Status: F Source: [place] SUMMARY 8:59 PM [facility] REPOSITORY [facility] Medical Records Department [address] [facility] [place] [address] Emergency Department Summary 05/06/172054 MR#: [id number] Acct: [id number] Name: VIVIAN SOUSA Jamilah Rep #: [id number] : 1960 56 From: Casey Brown MD PCP: Praful Magdaleno DO Status: REG ER - ER Visit Summary Date of Service: 05/06/17 Chief Complaint: Fatigue, illness, high blood sugar and blurred vision History of Present Illness: The patient is a 56 F [place] she has been tired, fatigued and ill since the weekend. She also reports difficulty controlling her blood sugars with blood sugar readings greater than 300. She was concerned because today she had blurred vision. The blurred vision was binocular. She also complains of polyuria, polydipsia and nocturia. She denies hematuria, dysuria or urgency. She denies fever, chills night sweats. She denies any double vision or loss of vision. She denies rhinorrhea, postnasal drainage, earache or sore throat. She denies cough, shortness of breath, dyspnea on exertion, orthopnea or PND. She denies chest discomfort of any type. He does complain of intermittent nausea without vomiting diarrhea. She denies any skin lesions. Patient has a past medical history type 2 diabetes, hypertension hypercholesterolemia. Physical Examination: No signs are remarkable only blood pressure 151/87. She is heavyset. Head is atraumatic normocephalic. Pupils are equal round reactive. Extraocular muscles are intact. TMs are pearly white with landmarks noted. Nares patent with no drainage. Posterior pharynx without erythema or exudate. Uvula is midline. There is no dysphonia or dysphasia. Trachea is midline. There is no stridor with auscultation of the neck. Heart is regular without murmur, gallop or rub. S1 and S2 are normal. Lungs are clear to auscultation with good movement of air bilaterally. Abdomen is soft and nontender. There is no guarding or peritoneal findings. There is no palpable pulsatile mass. There is no abdominal bruit. Petty sign is negative. Negative Rovsing sign. There is no evidence of inguinal or umbilical hernia. There is no asymmetry, swelling, discoloration, leg vein distention, palpable cords or tenderness along the distribution of the deep venous system. Patient is alert and oriented 3. Motor is 5 over 5. Sensory is intact. DTRs are symmetric with no clonus or Babinski sign. Cranial 2 through 12 are intact. Cerebellar testing is normal. Test Results: CBC is normal. BMP is marked for glucose 129. Her blood sugar prior to arrival was 329. UA is remarkable contaminated specimen with 10-25 epithelial cells without evidence of infection. Emergency Department Course and Treatment: This patient's symptoms which are consistent with hyperglycemia BMP, CBC and UA were obtained. Treatment Plan: Patient was informed that it is not uncommon for her blood sugar to be elevated when she becomes ill. She needs to be adherent to her diet and medication. Disposition: Discharge to home in stable improved condition Impression: 1. Viral syndrome 2. Hyperglycemia, resolved 3. History of type 2 diabetes 4. History hypertension 5. History hypercholesterolemia This note was generated with [employer] dictation software. It may contain incorrect words, spelling, and punctuation that were not noted in review of the chart prior to signing ED Disposition - Plan for ED Patient: Disposition: Home or Assisted Living Chief Complaint: Hyperglycemia Instructions: ED Hyperglycemia Diabetic, ED Weakness [facility] Referrals: Praful Magdaleno DO [Primary Care Provider] - 1 Week if not improving What to do if you have Problems For any increased pain, shortness of breath, bleeding, nausea or vomiting, chest pain, or any unexpected problems, contact your Primary Care Provider. Call [facility] ([phone]) or report to the closest Emergency Room. Call 911 if necessary. 05/06/172058 <Electronically signed by Casey Brown MD> Date Casey Brown MD Cosigner Signature (If Indicated): Date CC: Praful Magdaleno DO CBC W/DIFF, AUTOMATED Collected: 05/06/2017 Status: F Source: [place] 7:40 PM [facility] REPOSITORY TYPE CODE TESTS RESULT OUT OF RANGE REFERENCE UNITS LAB L100.1000 4.4-11.0 K/mm3 Normal WBC 8.5 LAB L100.1200 4.2-5.4 M/mm3 Normal RBC 4.87 LAB L100.1300 12.0-15.0 g/dl Normal HGB 14.9 LAB L100.1400 37-47 % Normal HCT 44.7 LAB L100.1500 81-99 fL Normal MCV 91.8 LAB L100.1600 27.0-32.0 pg Normal MCH 30.6 LAB L100.1700 32-36 g/gl Normal MCHC 33.3 LAB L100.1810 11.6-14.6 % Normal RDW CV 13.9 LAB L100.1820 35.1-43.9 fl High RDW SD 46.6 LAB L100.1900 150-450 K/mm3 Normal PLT 217 LAB L100.2000 6.2-12.0 fl Normal MPV 10.3 LAB L100.2100 47-70 % Normal NEUT% 58.1 LAB L100.2200 19-41 % Normal LY% 30.6 LAB L100.2300 0-10 % Normal MONO% 8.5 LAB L100.2400 0-5 % Normal EO% 2.1 LAB L100.2500 0-1 % Normal BASO% 0.6 LAB L100.2550 0.0-0.9 % Normal IM GRAN % 0.100 Result Comment: IG% - Immature Granulocytes (promyelocytes, myelocytes and metamyelocytes) > 1% indicates that a LEFT SHIFT is Present. LAB L100.2620 2.0-7.7 X10 3/uL Normal Absolute Neut 4.9 LAB L100.2720 0.83-4.51 X10 3/ul Normal Absolute Lymph 2.60 Performed By: #### L100.0100 #### [facility] [address]. [place], [place], [address] BASIC METABOLIC Collected: 05/06/2017 Status: F Source: [place] PROFILE (BMP) 7:40 PM [facility] REPOSITORY TYPE CODE TESTS RESULT OUT OF RANGE REFERENCE UNITS LAB L501.0100 70-110 mg/dL High GLU 129 Result Comment: Fasting Glucose result greater than or equal to 126 mg/dL suggests DIABETES MELLITUS per A.D.A. criteria. LAB L501.1000 7-18 mg/dL High BUN 20 LAB L501.1100 0.55-1.02 mg/dL Normal CREAT,SERUM 0.85 Result Comment: The validity of the calculated GFR AND GFRAA in patients over 70 years has not been determined. Clinical correlation is essential. LAB L501.1110 >60 mL/min Normal EST GFR 74 Result Comment: Non- GFR Calc LAB L501.1115 >60 mL/min Normal EST GFR - AA 90 Result Comment: GFR Calc LAB L501.1255 ml/min Normal Estimated CRCL 99.07 LAB L501.1300 10-20 RATIO High BUN/CRE 23.6 LAB L501.2200 8.5-10 mg/dL Normal .1 CA 9.0 LAB L501.5300 136-14 mmol/L Normal 5 NA 139 LAB L501.5600 3.5-5. mmol/L Normal 1 K 3.8 Result Comment: Slight Hemolysis, Result may be falsely increased. LAB L501.5900 98-107 mmol/L Normal CL 105 LAB L501.6100 21.0-32.0 mmol/L Normal CO2 26.0 LAB L501.6200 5-15 Normal 8 GAP Performed By: #### L500.2500 #### [facility] [address] [place], [place], [address] URINALYSIS, COMPLETE Collected: 05/06/2017 Status: F Source: [place] 7:39 PM [facility] REPOSITORY Order Comment: Order Date: 05/06/17 How was Urine Obtained? CLEAN CATCH TYPE CODE TESTS RESULT OUT OF RANGE REFERENCE UNITS LAB L400.3000 Yellow COLOR Normal Yellow LAB L400.3050 Clear Normal CLARITY Clear LAB L400.3200 Normal mg/dl High GLUCOSE, UR 1000 LAB L400.3300 Negative mg/dL Normal BILIRUBIN URINE Negative LAB L400.3400 Negative mg/dl Normal KETONE UR Negative LAB L400.3465 1.002-1.030 Normal SP.GR. DIPSTX 1.015 LAB L400.3550 5.0 - 8.0 pH UR Normal 5.0 LAB L400.3600 Negative mg/dl PROT Normal DIPSTX Negative LAB L400.3700 Normal mg/dl Normal UROBILI Normal LAB L400.3750 Negative Normal NITRITE UR Negative LAB L400.3780 Negative /ul High 10 OCCULT BLOOD-UR LAB L400.3800 Negative /ul High LEUK ESTERASE 500 LAB L400.4050 0-5 /hpf WBC Normal 0-5 SEEN LAB L400.4100 0-5 /hpf 0 Normal RBC-UA SEEN LAB L400.4150 5-10 /hpf SQUAM Normal EPI 10-25 SEEN LAB L400.4300 None Seen /hpf 0 Normal BACTERIA SEEN LAB L400.4350 <or=2+ /hpf 0 Normal MUCUS, URINE SEEN Performed By: #### L400.0001 #### [facility] [address] [place], [address] BEDSIDE GLUCOSE Collected: 05/06/2017 Status: F Source: [place] 6:52 PM [facility] REPOSITORY TYPE CODE TESTS RESULT OUT OF REFERENCE UNITS RANGE LAB L501.080 70-110 mg/dL High BEDSIDE GLU 149 Result Comment: MANAGEMENT OF PATIENT CARE PER NURSING PROTOCOL Performed By: #### L501.080 #### [facility] Point of Care [address] [place] [address] ALLERGIES ALLERGIES DATE TYPE / CODE NAME / CODE REACTION SEVERITY SOURCE 02/13/2018 Drug guaifenesin/ Nausea Unknown [facility] Allergy/4160 [id number]([facility] 89421(SNOMED XNORM) Repository CT) 02/13/2018 Drug sulfamethoxa Shortness of Unknown [facility] Allergy/4160 zole/U006140 [facility] [address]65(SNOMED 827(RXNORM) Repository CT) 02/13/2018 Drug trimethoprim Shortness of Unknown [place] [facility] Allergy/4160 /[id number]( [facility] 65053(SNOMED RXNORM) Repository CT) ENCOUNTERS ENCOUNTERS ADMIT/DISCHARGE ACCOUNT NUMBER ADMITTING ENCOUNTER LOCATION SOURCE CLASS 04/01/2018 [id number] [facility] ding[facility]LAB Repository 04/01/2018 [id number] Ambulatory BMSBuilding: [facility] Repository 02/23/2018/02/24/20 [id number] Ambulatory BBuilding:[address] Repository 02/13/2018/02/14/20 [id number] Emergency [address] ding:ED Repository 02/11/2018/02/12/20 [id number] Emergency [address] ding:ED Repository 02/11/2018/02/13/20 [id number] Ambulatory [address] Repository 11/25/2017/11/26/19 [id number] Emergency [address] ding:ED Repository 11/24/2017/11/25/19 [id number] Emergency BBuilding:ER [address] Repository 05/06/2017/05/06/19 [id number] Emergency [address] ding:ED Repository PAYERS PAYERS ENCOUNTER GUARANTOR PAYER SUBSCRIBER SOURCE 04/01/2018 VIVIAN R Primary VIVIAN R [place] [id number] Insurance:ANTHEMPolicy BABBDOB: [facility] [place]: [id number] [id number] Repository [address]Ivh: 330) Date:0621-57-66LX [phone] () [id number], [place] [address]QX: 04/01/2018 Secondary NOT GIVENUNK [place] Insurance:SELF PAY [facility] Number: Effective Repository Date:2018-04-01 04/01/2018 VIVIAN R Primary VIVIAN R [place] [id number] Insurance[facility]MPolicy [facility] Number: [id number] [id number] Repository [address]Wzx: ([phone]) Date:9021-42-87OY [phone] () [id number], [place] [address]GB: 04/01/2018 Secondary NOT GIVENUNK [place] Insurance:SELF PAY [facility] Number: Effective Repository Date:2018-04-01 02/23/2018 VIVIAN R Primary VIVIAN R [facility] BABBDOB: Insurance:ANTHEM BLUE BABBDOB: Foundation CROSS INSCOPolicy [id number] [facility] Number: [address] [place], [place] [id number] [place], [place] [address]Olp: (330) Date:2018-02-02 340[address]Mvw: [id number] [phone] ()Tel: ([phone]) Name:[facility] () () [id number] Combs [phone] () [address]YE: 02/13/2018 VIVIAN R Primary VIVIAN R [place] [id number] Insurance:ANTHEMPolicy BABBDOB: [facility] Number: [id number], [place] [id number] Repository [address]Sqo: (330) Date:3301-21-40TL [phone] () [id number], [place] [address]YN: 02/13/2018 Secondary NOT GIVENUNK [place] Insurance:SELF PAY [facility] Number: Effective Repository Date:2018-02-13 02/11/2018 VIVIAN R Primary VIVIAN R [place] [id number] Insurance:ANTHEMPolicy BABBDOB: [facility] Number: [id number], [place] [id number] Repository [address]Wdd: (330) Date:0721-68-99CK [phone] () KEITH MCCOLLUM [address]RA: 02/11/2018 Secondary NOT GIVENUNK [place]án Insurance:SELF PAY [facility] Number: Effective Repository Date:2018-02-11 11/25/2017 VIVIAN R Primary VIVIAN R [place] [id number] Insurance:ANTHEMPolicy BABBDOB: [facility] [place] Number: [id number], [place] [id number] Repository [address]Zdg: (330) Date:3733-49-50EG [phone] () [id number], [place] [address]QP: 11/25/2017 Secondary NOT GIVENUNK [place] Insurance:SELF PAY [facility] Number: Effective Repository Date:2017-11-25 11/24/2017 VIVIAN R Primary VIVIAN R [facility] BABBDOB: Insurance:ANTHEM BLUE BABBDOB: Foundation CROSS COMMERCIALPolicy [id number] Repository [place] Number: [address] [place], [place] [id number] PL[place], [place] [address]Bcf: (330) Date:2017-11-24 488[address]Yom: [phone] [phone] ()Tel: ([phone]) Name:OPAL MURRAY () () KEITH Mccollum [phone] () [address]ZR: 05/06/2017 VIVIAN R Primary VIVIAN R [place]án [id number] Insurance:ANTHEMPolicy BABBDOB: [facility] [place] Number: [id number], [place] [id number] Repository [address]Rdz: (330) Date:0645-17-48ZT [phone] () KEITH MCCOLLUM [address]KN: 05/06/2017 Secondary NOT GIVENUNK [place] Insurance:SELF PAY [facility] Number: Effective Repository Date:2017-05-06
== END ==
PROVIDERS: Family Provider Family Medicine; PCP Family Medicine; Referring Provider Physician Assistant; Visit Provider Physician Assistant
DX: Z01.818 Encounter for other preprocedural examination (principal); Z01.810 Encounter for preprocedural cardiovascular examination
CPT/HCPCS: 36415; 80048; 83036; 85025; 93005

== ENCOUNTER → 2018-10-12 15:55 | Outpatient (CLI) | payer BC, SELFPAY ==
[2018-10-14 13:07] LABS: Thyroid Stim Hormone (TSH) 0.44 uIU/mL (0.358-3.74)
== END ==
PROVIDERS: Family Provider Family Medicine; PCP Family Medicine; Referring Provider Nurse Practitioner Primary Care; Visit Provider Nurse Practitioner Primary Care
DX: E03.9 Hypothyroidism, unspecified (principal)
CPT/HCPCS: 84443

== ENCOUNTER → 2019-04-19 15:46 | Outpatient (CLI) | payer BC, SELFPAY ==
--- NOTE | 2019-04-19 15:50 | RAD_ITS ---
STUDY: X-RAY CHEST REASON FOR EXAM: Female, 58 years old. Cough. TECHNIQUE: PA and lateral views of the chest. COMPARISON: None. FINDINGS: The lungs are clear and expanded. There is no demonstrated pleural abnormality. Normal size heart. Normal mediastinum and shameka. Normal visualized pulmonary arteries. Normal visualized aortic arch and descending thoracic aorta. There are mild degenerative changes of the visualized thoracic spine. There is degenerative osteoarthritis of the bilateral shoulders. There is no demonstrated abnormality of the visualized soft tissue structures of the upper abdomen. RAD/Chest PA and Lateral IMPRESSION: No acute cardiopulmonary disease. Electronically Signed: Sari Larsen MD at 0:49 EST , Service support ,
== END ==
DX: R05 Cough (principal)
CPT/HCPCS: 71046

== ENCOUNTER 2019-07-13 20:46 | Emergency (ER) | payer BC, SELFPAY ==
[2019-07-13 20:47] VITALS: BP 151/92; PULSE 94; RESP 16; TEMP 36.7; O2SAT 96; BMI 35.5
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
--- NOTE | 2019-07-13 21:15 | ED.DEP ---
ED Disposition - Plan for ED Patient: Instructions: RADICULOPATHY, Cervical, Shoulder Impingement Syndrome Prescriptions: cycloBENZAPRine HCl [Flexeril] 10 mg PO TID PRN #20 tab PRN Reason: Muscle Spasm Prescription Printed Naproxen [Naprosyn] 500 mg PO BID PRN #20 tab Prescription Printed Hydrocodone Bitart/Apap 5-325 [[place] 5MG-325MG] 1 tab PO Q4H PRN PRN 2 Days #20 tab PRN Reason: Pain Prescription Printed Referrals: [facility] Teresa,Kiki Guzman [Primary Care Provider] - Saravanan Quiroga DO [STAFF PHYSICIAN] - 3-5 Days
[2019-07-13 21:28] VITALS: RESP 16
--- NOTE | 2019-07-13 21:29 | ED.RN ---
REVIEWED D/C INSTRUCTIONS, FOLLOW UP CARE, PRESCRIPTIONS, AND S/S THAT WOULD WARRANT A RETURN TO THE ED WITH PT. PT VERBALIZED AN UNDERSTANDING AND DENIES FURTHER QUESTIONS FOR THIS RN. PT SKIN P/W/D, RESP EVEN AND UNLABORED, PT A&O X 3, NO DISTRESS NOTED. PT AMBULATED OUT OF ED, GAIT STEADY.
== END 2019-07-13 21:30 | disposition home or self-care (01) ==
LOC: ED 21:23
PROVIDERS: Emergency Provider Emergency Medicine
DX: M54.2 Cervicalgia (principal); M25.512 Pain in left shoulder; E03.9 Hypothyroidism, unspecified; E11.9 Type 2 diabetes mellitus without complications; E78.00 Pure hypercholesterolemia, unspecified; I10 Essential (primary) hypertension; F32.9 Major depressive disorder, single episode, unspecified
CPT/HCPCS: 99282

== ENCOUNTER → 2019-10-20 14:16 | Outpatient (CLI) | payer BC, SELFPAY ==
--- NOTE | 2019-10-20 15:41 | NEURO ---
NCS and/or EMG Patient Report Ordering Doctor: Riley Mejia DATE OF SERVICE: 10/20/19 Vivian Ruvalcaba is a 59-year-old female presents for electrodiagnostic testing of the upper limbs. She reports arm pain on both sides. She reports intermittent neck and trapezial pain. Electrodiagnostic findings: Median motor nerve demonstrates normal to latency and amplitude with reduced conduction velocity bilaterally. Left ulnar motor nerve demonstrates normal distal latency and amplitude with an almost 25% drop in conduction across the elbow. Right ulnar motor nerve demonstrates normal distal latency and amplitude with normal 25% drop in conduction across the elbow. Prolonged median sensory latency at the wrist is noted bilaterally. Normal ulnar and radial sensory responses. Normal median and ulnar F waves. On needle EMG, all muscles tested in the upper limbs as well as the cervical paraspinal showed no evidence of denervation with normal motor unit action potentials. Electrodiagnostic impression: This is an abnormal study in the upper limbs 1. Electrodiagnostic findings demonstrate bilateral median mononeuropathy. This is consistent with a mild bilateral carpal tunnel syndrome. 2. Electrodiagnostic findings demonstrate bilateral ulnar neuropathy, consistent with a mild to moderate bilateral cubital tunnel syndrome. 3. No electrodiagnostic evidence is noted for cervical radiculopathy. If there are any further questions, please do not hesitate to contact me.
== END ==
PROVIDERS: PCP Student in an Organized Health Care Education/Training Program; Referring Provider Student in an Organized Health Care Education/Training Program; Visit Provider Student in an Organized Health Care Education/Training Program
DX: M25.511 Pain in right shoulder (principal); M54.2 Cervicalgia; M54.12 Radiculopathy, cervical region; G89.29 Other chronic pain
CPT/HCPCS: 95886; 95912

== ENCOUNTER → 2020-04-18 09:09 | Outpatient (CLI) | payer BC, SELFPAY ==
[2020-04-18 08:29] VITALS: BMI 39.1
[2020-04-18 12:39] LABS: AST(SGOT) 15 U/L (15-37); Alanine Aminotransfer ALT/SGPT 35 U/L (13-56); Albumin, Serum 3.5 g/dL (3.2-5.0); Alkaline Phosphatase 114 U/L (45-117); Anion Gap 6 (5-15); BUN 16 mg/dL (7-18); BUN/Creat Ratio 22.3 RATIO (10-20); Calcium,Total 9.1 mg/dL (8.5-10.1); Chloride 108 mmol/L (98-107); Cholesterol 169 mg/dL (200); Creatinine, Serum 0.72 mg/dL (0.55-1.02); EST Glomerular Filtration Rate 89 mL/min (>60); Est Glom Filt Rate - Afr Amer 108 mL/min (>60); Globulin 3.6 g/dL (2.2-4.2); Glucose 172 mg/dL (74-106); High Density Lipoprotein 51 mg/dL; Potassium 3.9 mmol/L (3.5-5.1); Protein, Total 7.1 g/dL (6.4-8.2); Sodium Level 142 mmol/L (136-145); T4 Free Direct 1.11 ng/dL (0.76-1.46); Thyroid Stim Hormone (TSH) 0.78 uIU/mL (0.358-3.74); Triglycerides 189 mg/dL; Very Low Density Lipoprotein 38 mg/dL (5-40)
== END ==
PROVIDERS: Referring Provider Internal Medicine Endocrinology, Diabetes & Metabolism; Visit Provider Internal Medicine Endocrinology, Diabetes & Metabolism
DX: E11.9 Type 2 diabetes mellitus without complications (principal); E03.9 Hypothyroidism, unspecified; E78.5 Hyperlipidemia, unspecified; I10 Essential (primary) hypertension
CPT/HCPCS: 36415; 80053; 80061; 84439; 84443

== ENCOUNTER → 2020-04-24 08:49 | Outpatient (CLI) | payer BC, SELFPAY ==
[2020-04-18 08:29] VITALS: BMI 39.1
[2020-04-24 13:25] LABS: Microalbumin,Random Urine < 5.0 mg/L (NO RANGE EST.)
== END ==
PROVIDERS: PCP Student in an Organized Health Care Education/Training Program; Visit Provider Internal Medicine Endocrinology, Diabetes & Metabolism
DX: E11.9 Type 2 diabetes mellitus without complications (principal); E03.9 Hypothyroidism, unspecified; E78.5 Hyperlipidemia, unspecified; I10 Essential (primary) hypertension
CPT/HCPCS: 82043; 82570

== ENCOUNTER 2020-10-31 12:00 | Outpatient (RCR) | payer OTHER, MEDICAID, SELFPAY ==
[2020-07-18 10:07] VITALS: BMI 41.0
--- NOTE | 2020-10-17 12:34 | HP.PTEVAL_ITS ---
Patient's Visit Information NOLBERTO SOUSA is a 60 year old F referred to Physical Therapy by Dr. Saravanan Devine DO with a diagnosis of LBP. Date of Evaluation: 10/17/20 Physical Therapist: Uzma Short, PT, Cert MDT - Visit Plan Frequency: 2-3x /Week Duration: 4-6 Weeks Plan: AQUATIC THERAPY FOR PAIN RELIEF, POSTURE CORRECTION/STRENGTHENING, INSTRUCTION IN APPROPRIATE BODY MECHANICS AND ACTIVITY MODIFICATIONS. DLS STARTING WITH A NEUTRAL SPINE PROGRESSING ROM TOLERATED. ROSELYN LE ROM, STRETCHING AND STRENGTHENING. HEP INSTRUCTION. 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 HAS NOT BEEN TO WORK SINCE APR 15 2021 DUE TO PTSD. PATIENT HOPES TO RETURN TO HER JOB AT [employer] BUT DOES NOT HAVE A TENATIVE RETURN TO WORK DATE YET. Disability: NO. Present symptoms: ROSELYN LOW BACK PAIN. ROSELYN MEDIAL LEG PAIN. Present since: YEARS. Pain Scale: WORST 9/10, LEAST 4/10. Currently: 7/10. Commenced as a result of: NO APPARENT REASON OTHER THAN GETTING PULLED OFF A COUCH BY FEET MULTIPLE TIMES YEARS AGO. Symptoms at onset: LOW BACK PAIN. Worse: CLEANING, SWEEPING, DOING DISHES, CHANGING CAT LITTER, WALKING/GROCERY SHOPPING. PATIENT REPORTS BENDING IS A BIG PROBLEM AND IT MAKES IT HARD FOR HER TO DRESS THE LOWER PART OF HER BODY. Better: HEATING PAD, BACK AND BODY MEDICINE, SITTING IN RECLINER, HOT SHOWER, HOT BATH. Disturbed sleep: YES. Previous history/Previous treatment: CHIROPRACTOR - FOR YEARS OFF AND ON AND LAST MONTH - LAST MONTH IT DID NOT HELP AND ACTUALLY MADE HER PAIN WORSE. NO PLANS TO GO BACK TO THE CHIROPRACTOR. PRESCRIPTION MEDICINE. NO BACK SURGERY. NO HOLA'S. NO PT. Coughing/sneezing/straining: NEGATIVE. Gait: TIME AND DISTANCE LIMITED DUE TO BACK AND LEG PAIN. VERY PAINFUL WITH GROCERY SHOPPING. DOES NOT USE ANY ASSISTIVE DEVICES. Difficulty initiating urinatin: NO. Accidents: NO. Unexplained weight loss: NO. Imaging: LUMBAR X-RAYS BHARGAV LOUISE 09/27/20: THERE ARE 5 NONRIB-BEARING LUMBAR VERTEBRAE WHICH DEMONSTRATE NORMAL HEIGHT AND ALIGNMENT. THERE ARE ENDPLATE OSTEOPHYTES AT ALL LEVELS. THE INTERSPACES ARE PRESERVED. THERE ARE NO PARS DEFECTS. PMH: PTSD, IDDM, HYPOTHYROIDISM, HIGH CHOLESTEROL, HTN. W R KNEE SURGERIES ONE L KNEE SURGERY. ROSELYN HAND SURGERIES FOR CARPAL TUNNEL. R TORN HAMSTRING 2011 WITH RESIDUAL PAIN STILL TODAY. - Objective Sitting/Standing Posture: POOR. Lordosis: NORMAL. Lateral shift: NO. Relevant shift: N/A. Active Correction of posture: NE. Other Observations: INDEP GAIT INTO PT WITHOUT ANY ASSISTIVE DEVICES OR LOB. INCREASED C/O PAIN AND DECREASED CADANCE AFTER APPROX 300 FEET. Motor deficit: ROSELYN LE'S 5/5 WITH MMT'ING EXCEPT HIPS 4/5. Sensory deficit: ROSELYN LE LIGHT TOUCH SENSATION INTACT AND SYMMTRICAL. ROM deficit: TIGHT ROSELYN HIP FLEXORS, HS'S AND GASTROC SOLEUS COMPLEX'S. Reflexes: UNABLE TO ELICIT ROSELYN LE DTR'S. Dural Signs: POSITIVE ROSELYN LE'S. Lumbar mvmt loss: flex - MOD. ext - MOD. R SG - MOD. L SG - MOD. Core strength: POOR. Palpation: TENDERNESS WITH LIGHT PALPATION OF THE ENTIRE LUMBAR AND SACRAL REGIONS. TREATMENT: NEUROMUSCULAR REEDUCATION - RETRAINING OF MVMT AND POSTURE FOR SITTING, LYING AND STANDING ACTIVITIES. - Goals Goal 1:: DECREASE C/O LOW BACK PAIN Goal Time Frame: 4-6 Weeks Goal 2:: IMPROVE PERSONAL CARE, LIFTING, WALKING, SITTING, STANDING, SOCIAL LIFE, TRAVEL AND WORK/HOMEMAKING FUNCTION. Goal Time Frame: 4-6 Weeks Goal 3:: INSTRUCT IN PROPHYLAXIS Goal Time Frame: 4-6 Weeks - Anticipated Interventions Patient/Client Instruction: Educate patient on: Condition, Plan of Care, Risk Factors For the Purpose of:: To improve self management Therapeutic Exercise to Include: Strength training, Body mechanics, Postural training, Flexibilty training, Neuromotor development, In an aquatic setting, Dynamic Lumbar Stabilization For the Purpose of:: To decrease pain, To improve muscle performance and motor function, To increase tolerance to activity/condition/position, To improve ability of physical actions for home/community/work/leisure Thank you for the opportunity to evaluate your patient. For Medicare and Medicare HMO plans, please review the plan of care and approve it. It will need to be FAXED BACK to us at [phone] for Medicare purposes. For Medicare only, by signing this I certify the plan of care. Please let me know if there are questions or concerns regarding this plan of care. Physician Signature: Date:
--- NOTE | 2020-11-10 11:54 | HP.PT.NRP ---
NOLBERTO SOUSA was seen in my office for initial evaluation on 10/17/20. The following Plan of Care was established for this patient: Initial Frequency: 2-3x /Week Initial Duration: 4-6 Weeks Patient/Client Instruction: Educate patient on: Condition, Plan of Care, Risk Factors For the Purpose of:: To improve self management Therapeutic Exercise to Include: Strength training, Body mechanics, Postural training, Flexibilty training, Neuromotor development, In an aquatic setting, Dynamic Lumbar Stabilization For the Purpose of:: To decrease pain, To improve muscle performance and motor function, To increase tolerance to activity/condition/position, To improve ability of physical actions for home/community/work/leisure This patient was last seen in our office . Pertinent comments regarding their Physical therapy will appear below: This patient has not returned to Physical Therapy and is appropriate to return to MD for further follow-up as needed. At this point I will be discontinuing this patient from physical therapy. I would be happy to see this patient again in the future if found appropriate by the physician. Thank you! Uzma Short, PT, Cert MDT
== END 2020-10-31 19:00 | disposition home or self-care (01) ==
LOC: PT 12:00
PROVIDERS: PCP Student in an Organized Health Care Education/Training Program; Referring Provider Student in an Organized Health Care Education/Training Program; Visit Provider Student in an Organized Health Care Education/Training Program
DX: M54.5 Low back pain (principal); M19.012 Primary osteoarthritis, left shoulder; M19.011 Primary osteoarthritis, right shoulder
CPT/HCPCS: 97112; 97113; 97162

== ENCOUNTER 2021-04-02 17:40 | Emergency (ER) | payer MEDICAID, SELFPAY ==
[2021-04-02 17:50] VITALS: BP 163/104; PULSE 97; RESP 16; TEMP 36.1; O2SAT 94; BMI 44.2
--- NOTE | 2021-04-02 19:15 | RAD_ITS ---
STUDY: X-RAY CHEST REASON FOR EXAM: Female, 60 years old. CHEST PAIN dyspnea TECHNIQUE: XR Chest 1 View COMPARISON: 04/19/2019 FINDINGS: There is no demonstrated pleural abnormality. Normal size heart. Normal mediastinum and shame[place]. Normal visualized pulmonary arteries. Normal visualized aortic arch and descending thoracic aorta. Normal visualized thoracic spine. Normal visualized ribs, clavicles, and shoulders. There is no demonstrated abnormality of the visualized soft tissue structures of the upper abdomen. RAD/Chest 1 View (Portable) IMPRESSION: There are no acute findings. Electronically Signed: Sebastian Akers MD at 20:01 EST , Service support ,
--- NOTE | 2021-04-02 19:15 | EKG12_ITS ---
Test Reason : EDEMA Blood Pressure : / mmHG Vent. Rate : 086 BPM Atrial Rate : 086 BPM P-R Int : 150 ms QRS Dur : 078 ms QT Int : 388 ms P-R-T Axes : 036 025 032 degrees QTc Int : 464 ms Normal sinus rhythm Normal ECG Confirmed by FLORINDA RODRIGUEZ, MAE ([id number]), newspaper managing editor CHRIS KAY ([id number]) on 04/03/2021 10:14:35 AM Referred By: PREET Confirmed By:MAE NEELY MD
--- NOTE | 2021-04-02 19:16 | ED.VIS.LOWEX ---
HPI History of Present Illness Chief Complaint: Edema Narrative Narrative: 60-year-old female presenting with lower extremity edema which is symmetric and bilateral for 2 weeks. She states she tried to elevate them and massage them but they did continue to be swollen. She has trouble walking and putting on her shoes. She denies a history of congestive heart failure. No history of DVT/PE and no risk factors. She does not have any chest pain, but does relate that she does get dyspneic on exertion. She states that she does not sleep flat but that has not changed. Patient does have sleep apnea and wears CPAP at night. She is not had any fever or chills. She is eating and drinking normally. [facility] Medical History Diabetes mellitus type 2 in obese GERD (gastroesophageal reflux disease) Headache History of back problems HTN (hypertension) Hx of carpal tunnel syndrome Hyperlipidemia Hypothyroid Home Medications Cranberry Conc/C/Bacill Coag 4,200 mg PO DAILY 02/11/18 [History Last Taken Unknown] aspirin 81 mg PO DAILY@0800 02/11/18 [History Last Taken Unknown] cholecalciferol (vitamin D3) [Vitamin D3] 400 unit PO DAILY 02/11/18 [History Last Taken Unknown] naproxen 500 mg PO BID PRN #20 tab 07/13/19 [Rx Last Taken Unknown] lisinopril 20 mg-hydrochlorothiazide 12.5 mg tablet 2 tab PO DAILY 01/20/20 [History Last Taken Unknown] pen needle, diabetic 31 gauge x 09/17 #400 ea 02/29/20 [Rx Last Taken Unknown] alprazolam 1 mg tablet tab PO 07/18/20 [History Last Taken Unknown] aspirin-caffeine 500 mg-32.5 mg tablet 2 tab PO PRN PRN tab 07/18/20 [History Last Taken Unknown] blood sugar diagnostic #100 ea 07/18/20 [Rx Last Taken Unknown] blood sugar diagnostic #100 each 07/18/20 [Rx Last Taken Unknown] blood-glucose meter #1 each 07/18/20 [Rx Last Taken Unknown] buspirone 10 mg tablet 30 tab PO BID 07/18/20 [History Last Taken Unknown] cetirizine 10 mg capsule 10 mg PO DAILY PRN 07/18/20 [History Last Taken Unknown] cinnamon bark 500 mg capsule 500 mg PO DAILY 07/18/20 [History Last Taken Unknown] cranberry extract 500 mg capsule 500 mg PO ONCE cap 07/18/20 [History Last Taken Unknown] lancets 33 gauge #100 each 07/18/20 [Rx Last Taken Unknown] lansoprazole 30 mg capsule,delayed release 30 mg PO DAILY cap 07/18/20 [History Last Taken Unknown] quetiapine 25 mg tablet 1 tab PO QHS 07/18/20 [History Last Taken Unknown] levothyroxine 100 mcg tablet 100 mcg PO DAILY #90 tab 10/12/20 [Rx Last Taken Unknown] pioglitazone 30 mg tablet 30 mg PO DAILY #90 tab 11/07/20 [Rx Last Taken Unknown] aripiprazole 5 mg tablet 2.5 mg PO QHS tab 03/02/21 [History Last Taken Unknown] atorvastatin 80 mg tablet 80 tablet PO DAILY 03/02/21 [History Last Taken Unknown] multivitamin 1 tab PO DAILY 03/02/21 [History Last Taken Unknown] glimepiride 6 mg PO TID 04/02/21 [History Last Taken Unknown] insulin glargine [Lantus Solostar U-100 Insulin] 44 unit SC QHS 04/02/21 [History Last Taken Unknown] insulin lispro 26 unit SC TID 04/02/21 [History Last Taken Unknown] Allergy/AdvReac Type Severity Reaction Status Date / Time sulfamethoxazole Allergy Shortness Verified 04/02/21 17:54 [From Bactrim] of breath trimethoprim [From Bactrim] Allergy Shortness Verified 04/02/21 17:54 of breath guaifenesin [From Mucinex] AdvReac Nausea Verified 04/02/21 17:54 Family History Other Arthritis Bleeding disorder Depression Diabetes Heart disease Hypertension Myocardial infarction Seizures Surgical History Hx of knee surgery Social History Smoking Status: Never smoker ROS ROS ED Constitutional Constitutional ED: Denies chills or fever(s) Eyes Eyes: Denies blurry vision or diplopia ENT ENT ED: Denies rhinorrhea or sore throat Cardiovascular Cardiovascular: Denies chest pain or palpitations Respiratory/Chest Respiratory/Chest: Reports dyspnea and dyspnea on exertion Gastrointestinal Gastrointestinal: Denies abdominal pain or nausea Genitourinary Genitourinary ED: Denies dysuria or hematuria Musculoskeletal Musculoskeletal: Denies arthralgias or myalgias Integumentary Reports other Neurologic Neurologic: Denies headache(s) or weakness EXAM Physical Exam Const Vital Signs: 04/02/21 17:50 04/02/21 19:38 04/02/21 19:40 Temperature 97 F L Temperature Source Temporal Pulse Rate 97 84 Respiratory Rate 16 19 H Blood Pressure 163/104 H Blood Pressure Mean 123 Pulse Ox 94 98 98 Oxygen Delivery Method Room Air Room Air Room Air Positive obese General Appearance ED: NAD Nutritional Appearance: obese HEENT Reports moist mucous membranes normocephalic Resp normal respiratory effort and clear to auscultation bilaterally Cardio regular rate and regular rhythm Extremity Extremity Narrative: Bilateral lower extremity swelling without pitting edema. No tenderness. Neuro oriented x3 Sensorium / Orientation: alert Psych mental status grossly normal Skin Lesions: No no lesions Rashes: No no rashes MDM MDM MDM Narrative Medical decision making narrative: Patient presenting with multiple symptoms including foot pain and perceived leg swelling. She is also having some dyspnea on exertion. Her vital signs are stable and she is afebrile. Her exam exam is normal with exception to some tenderness to palpation of the feet. Her lungs are clear to auscultation. I did obtain an EKG which on my interpretation shows a sinus rhythm at 86 bpm without sign of ischemic change or dysrhythmia. Chest x-ray my interpretation shows no acute cardiopulmonary process. Patient CBC shows a white blood cell count of 7.5, hemoglobin 14.4, hematocrit 40.1, platelets 226. Renal function is normal. She does have slight hypokalemia at 3.3. BNP is 5.2 TSH 1.23, free T4 0.97 and therefore normal. Patient counseled on findings and I do believe she is stable for discharge home there is no evidence of CHF. She does not have edema that is visible although she claims that her legs are swollen. She does request a referral to a [facility] [facility] support and this was given to her. Patient is discharged home in stable condition. Impression: 1. Bilateral foot pain 2. Dyspnea on exertion Lab Data Attestation: I reviewed the patient's lab results. Labs: Laboratory Results - last 24 hr 04/02/21 04/02/21 04/02/21 19:38 19:38 19:38 WBC 7.5 RBC 4.83 Hgb 14.4 Hct 43.1 MCV 89.2 MCH 29.8 MCHC 33.4 RDW Std Deviation 46.7 H RDW Coeff of Ari 14.2 Plt Count 226 MPV 9.7 Immature Gran % (Auto) 0.400 Neut % (Auto) 49.4 Lymph % (Auto) 38.0 [place] % (Auto) 9.4 Eos % (Auto) 2.1 Baso % (Auto) 0.7 Absolute Neuts (auto) 3.7 Absolute Lymphs (auto) 2.84 Nucleated RBC % 0 Sodium 141 Potassium 3.3 L Chloride 107 Carbon Dioxide 28.0 Anion Gap 6 BUN 9 Creatinine 0.76 Estim Creat Clear Calc 124.99 Est GFR (MDRD) Af Amer 101 Est GFR (MDRD) Non-Af 83 BUN/Creatinine Ratio 11.9 Glucose 132 H Calcium 9.3 Troponin I High Sens 4 B-Natriuretic Peptide 5.2 TSH 1.23 Free T4 0.97 Radiography Diagnostic Testing: Clinical Impression(s) from Imaging Studies Chest X-Ray 04/02/21 19:15 IMPRESSION: There are no acute findings. Electronically Signed: Sebastian Akers MD at 20:01 EST , Service support , Discharge Plan Triage Chief Complaint: Edema ED Provider: Alphonse Castro Dx/Rx/DC Orders Instructions: ED Lymphedema Prescriptions: No Action lisinopril-hydrochlorothiazide 20-12.5 mg tablet 2 tab PO DAILY RF: 0 cranberry extract 500 mg capsule 500 mg PO ONCE RF: 0 lansoprazole 30 mg capsule,delayed release(DR/EC) 30 mg PO DAILY RF: 0 alprazolam 1 mg tablet PO RF: 0 quetiapine 25 mg tablet 1 tab PO QHS RF: 0 buspirone 10 mg tablet 30 tab PO BID RF: 0 Back and Body Pain Reliever 500-32.5 mg tablet 2 tab PO PRN PRN (Reason: Headache) RF: 0 All Day Allergy (cetirizine) 10 mg capsule 10 mg PO DAILY PRNRF: 0 cinnamon bark [Cinnamon] 500 mg capsule 500 mg PO DAILY RF: 0 (DME) blood sugar diagnostic Strip See Rx Instructions .ROUTE .MEDSUPPLY Qty: 100 RF: 8 (DME) OneTouch Verio test strips Strip See Rx Instructions .ROUTE .MEDSUPPLY Qty: 100 RF: 5 (DME) lancets [OneTouch Delica Plus Lancet] 33 gauge misc See Rx Instructions .ROUTE .MEDSUPPLY Qty: 100 RF: 5 (DME) blood-glucose meter [OneTouch Verio Meter] Misc See Rx Instructions .ROUTE .MEDSUPPLY Qty: 1 RF: 0 atorvastatin 80 mg tablet 80 tablet PO DAILY RF: 0 multivitamin [Daily Multi-Vitamin] Tablet 1 tab PO DAILY RF: 0 aripiprazole 5 mg tablet 2.5 mg PO QHS RF: 0 aspirin 81 MG tablet,chewable 81 mg PO DAILY@0800 RF: 0 cholecalciferol (vitamin D3) [Vitamin D3] 2,000 UNIT capsule 400 unit PO DAILY RF: 0 Cranberry Conc/C/Bacill Coag 4,200 mg PO DAILY RF: 0 naproxen 500 MG tablet 500 mg PO BID PRN Qty: 20 RF: 0 glimepiride 2 mg tablet 6 mg PO TID RF: 0 insulin lispro 100 unit/mL insulin pen 26 unit SC TID RF: 0 Lantus Solostar U-100 Insulin 100 unit/mL (3 mL) insulin pen 44 unit SC QHS RF: 0 (DME) pen needle, diabetic [BD Ultra-Fine Short Pen Needle] 31 gauge x 5/16 needle See Rx Instructions .ROUTE .MEDSUPPLY Qty: 400 RF: 3 levothyroxine 100 mcg tablet 100 mcg PO DAILY Qty: 90 RF: 1 pioglitazone 30 mg tablet 30 mg PO DAILY Qty: 90 RF: 1 Primary Care Provider: Saravanan Devine Referrals: Rita Rivera DPM [STAFF PHYSICIAN] - As Needed Saravanan Devine DO [Primary Care Provider] - Disposition Disposition: Home, Self Care Discharge Date/Time: 04/02/21 21:25
[2021-04-02 19:38] VITALS: O2SAT 98
[2021-04-02 19:40] VITALS: PULSE 84; RESP 19; O2SAT 98
[2021-04-02 19:49] LABS: Absolute Lymphocyte Count 2.84 X10^3/uL (0.83-4.51); Absolute Neutrophil Count 3.7 X10^3/uL (2.0-7.7); Basophil# 0.05 X10^3/uL; Basophil% 0.7 % (0-1); Eosinophil# 0.16 X10^3/uL; Eosinophils% 2.1 % (0-5); Hematocrit 43.1 % (37-47); Hemoglobin 14.4 g/dL (12.0-15.0); Lymphocyte # 2.84 X10^3/ul (0.83-4.51); Mean Corp Hgb Conc 33.4 g/dL (32-36); Mean Corpuscular Hgb 29.8 pg (27.0-32.0); Mean Corpuscular Volume 89.2 fL (81-99); Mean Platelet Vol. 9.7 fl (6.2-12.0); Monocyte% 9.4 % (0-10); NRBC Flagged by Analyzer 0 % (0-5); Neutrophil # 3.69 X10^3/uL (2.7-7.7); Neutrophil % 49.4 % (47-70); Platelet Count 226 K/mm3 (150-450); RBC Distribution Width CV 14.2 % (11.6-14.6); RBC Distribution Width SD 46.7 fl (35.1-43.9); Red Blood Count 4.83 M/mm3 (4.2-5.4); White Blood Count 7.5 K/mm3 (4.4-11.0)
[2021-04-02 20:12] LABS: BNP,B-Type NATRIURETIC PEPTIDE 5.2 pg/mL (0-100)
[2021-04-02 20:21] LABS: Anion Gap 6 (5-15); BUN 9 mg/dL (7-18); BUN/Creat Ratio 11.9 RATIO (10-20); Calcium,Total 9.3 mg/dL (8.5-10.1); Chloride 107 mmol/L (98-107); Creatinine, Serum 0.76 mg/dL (0.55-1.02); EST Glomerular Filtration Rate 83 mL/min (>60); Est Glom Filt Rate - Afr Amer 101 mL/min (>60); Estimated Creatinine Clearance 124.99 ml/min; Glucose 132 mg/dL (74-106); Potassium 3.3 mmol/L (3.5-5.1); Sodium Level 141 mmol/L (136-145); T4 Free Direct 0.97 ng/dL (0.76-1.46); Thyroid Stim Hormone (TSH) 1.23 uIU/mL (0.358-3.74); Troponin-I HS 4 pg/mL (3.0-54.0)
== END 2021-04-02 21:25 | disposition home or self-care (01) ==
PROVIDERS: Emergency Provider Student in an Organized Health Care Education/Training Program; PCP Student in an Organized Health Care Education/Training Program
DX: M79.671 Pain in right foot (principal); M79.672 Pain in left foot; R06.09 Other forms of dyspnea; E66.9 Obesity, unspecified; K21.9 Gastro-esophageal reflux disease without esophagitis; I10 Essential (primary) hypertension; E78.5 Hyperlipidemia, unspecified; E03.9 Hypothyroidism, unspecified; G47.30 Sleep apnea, unspecified; E11.9 Type 2 diabetes mellitus without complications; Z79.4 Long term (current) use of insulin; Z79.82 Long term (current) use of aspirin
CPT/HCPCS: 71045; 80048; 83880; 84439; 84443; 84484; 85025; 93005; 99284; A4216

== ENCOUNTER 2021-08-10 18:24 | Emergency (ER) | payer MEDICAID, SELFPAY ==
[2021-08-10 18:25] VITALS: BP 194/100; PULSE 96; RESP 18; TEMP 36.2; O2SAT 99; BMI 40.4
--- NOTE | 2021-08-10 18:35 | CT_ITS ---
EXAMINATION : Head CT w/out contrast HISTORY : headache COMPARISON : None. TECHNIQUE : Multiple contiguous axial images were obtained from the skull base to the vertex without intravenous contrast. A radiation dose optimization technique was used for this scan. FINDINGS : The ventricles and sulci are normal in size. There is no evidence for acute intracranial hemorrhage, mass effect, or midline shift. There is no extra-axial fluid collection. There is normal castillo-white differentiation, without CT evidence of acute ischemia or infarct. The skull base and calvarium are unremarkable. The orbits are unremarkable. The paranasal sinuses are clear. The mastoid air cells are well-aerated. The soft tissues are unremarkable. CT/Brain/Head without Contrast IMPRESSION: No acute intracranial abnormality. Electronically Signed: Zak Velez MD at 18:59 EDT ,
--- NOTE | 2021-08-10 18:37 | EDS_ITS ---
HPI History of Present Illness Chief Complaint: Headache Narrative Narrative: Patient presents with a headache. She has chronic recurrent headaches secondary to a prior lesion. 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 This is thought to be incidental and benign. She had a worsening headache today at work. She has no fever chills cough or congestion. She has no vision changes. She has no weakness. Headache started about 3 or 4 hours ago when she was sent home from work. [facility] Medical History (Updated 08/10/21 @ 19:[address] Rafael Morejon MD) Diabetes mellitus type 2 in obese GERD (gastroesophageal reflux disease) Headache History of back problems HTN (hypertension) Hx of carpal tunnel syndrome Hyperlipidemia Hypothyroid Home Medications Cranberry Conc/C/Bacill Coag 4,200 mg PO DAILY 02/11/18 [History Last Taken Unknown] aspirin 81 mg PO DAILY@0800 02/11/18 [History Last Taken Unknown] cholecalciferol (vitamin D3) [Vitamin D3] 400 unit PO DAILY 02/11/18 [History Last Taken Unknown] naproxen 500 mg PO BID PRN #20 tab 07/13/19 [Rx Last Taken Unknown] lisinopril 20 mg-hydrochlorothiazide 12.5 mg tablet 2 tab PO DAILY 01/20/20 [History Last Taken Unknown] pen needle, diabetic 31 gauge x 09/17 #400 ea 02/29/20 [Rx Last Taken Unknown] alprazolam 1 mg tablet tab PO 07/18/20 [History Last Taken Unknown] aspirin-caffeine 500 mg-32.5 mg tablet 2 tab PO PRN PRN tab 07/18/20 [History Last Taken Unknown] blood sugar diagnostic #100 ea 07/18/20 [Rx Last Taken Unknown] blood sugar diagnostic #100 each 07/18/20 [Rx Last Taken Unknown] blood-glucose meter #1 each 07/18/20 [Rx Last Taken Unknown] buspirone 10 mg tablet 30 tab PO BID 07/18/20 [History Last Taken Unknown] cetirizine 10 mg capsule 10 mg PO DAILY PRN 07/18/20 [History Last Taken Unknown] cinnamon bark 500 mg capsule 500 mg PO DAILY 07/18/20 [History Last Taken Unknown] cranberry extract 500 mg capsule 500 mg PO ONCE cap 07/18/20 [History Last Taken Unknown] lancets 33 gauge #100 each 07/18/20 [Rx Last Taken Unknown] lansoprazole 30 mg capsule,delayed release 30 mg PO DAILY cap 07/18/20 [History Last Taken Unknown] quetiapine 25 mg tablet 1 tab PO QHS 07/18/20 [History Last Taken Unknown] pioglitazone 30 mg tablet 30 mg PO DAILY #90 tab 11/07/20 [Rx Last Taken Unknown] aripiprazole 5 mg tablet 2.5 mg PO QHS tab 03/02/21 [History Last Taken Unknown] atorvastatin 80 mg tablet 80 tablet PO DAILY 03/02/21 [History Last Taken Unknown] multivitamin 1 tab PO DAILY 03/02/21 [History Last Taken Unknown] glimepiride 6 mg PO TID 04/02/21 [History Last Taken Unknown] insulin glargine [Lantus Solostar U-100 Insulin] 44 unit SC QHS 04/02/21 [History Last Taken Unknown] insulin lispro 26 unit SC TID 04/02/21 [History Last Taken Unknown] levothyroxine 100 mcg tablet 100 mcg PO DAILY #90 tab 04/12/21 [Rx Last Taken Unknown] Allergy/AdvReac Type Severity Reaction Status Date / Time sulfamethoxazole Allergy Shortness Verified 08/10/21 18:27 [From Bactrim] of breath trimethoprim [From Bactrim] Allergy Shortness Verified 08/10/21 18:27 of breath guaifenesin [From Mucinex] AdvReac Nausea Verified 08/10/21 18:27 Family History Other Arthritis Bleeding disorder Depression Diabetes Heart disease Hypertension Myocardial infarction Seizures Surgical History Hx of knee surgery Social History Smoking Status: Never smoker ROS ROS ED ROS Narrative Past medical history: Reviewed Medications: Reviewed Social history: Noncontributory Review of systems: All systems negative except as indicated General: No fever Eyes: No visual changes ENT: No upper airway congestion, normal voice Neck: No neck pain Cardiovascular: No chest pain Respiratory: No shortness of breath or cough Gastrointestinal: No abdominal pain, nausea vomiting or diarrhea Genitourinary: No dysuria Musculoskeletal: Denies myalgias no difficulty with ambulation Skin: No rash Neurological: No memory loss, confusion or any focal weakness. Headache as in HPI Psych: No recent behavioral changes Hematologic: No easy bleeding or easy bruising EXAM Physical Exam Narrative Exam Narrative: Physical exam General: Well nourished, Well developed, No Acute Distress Head: Normocephalic, Atraumatic Eyes: Conjunctiva not pale ENT: Moist mucous membranes Neck: Supple, Nontender, No lymphadenopathy Cardiovascular: Regular rate, Regular rhythm Respiratory: No distress, CTA bilaterally Abdomen: Soft, Nontender, Nondistended Back: Nontender, Normal Inspection. Negative for: CVA tenderness Extremities: Nontender, No edema Skin: Normal color, No rash Neurological: Alert, Normal Strength, Normal Sensation Psychological: Normal affect Const Vital Signs: 08/10/21 18:25 Temperature 97.1 F L Temperature Source Temporal Pulse Rate 96 Respiratory Rate 18 Blood Pressure 194/100 H Blood Pressure Mean 131 Pulse Ox 99 Oxygen Delivery Method Room Air MDM MDM MDM Narrative Medical decision making narrative: Patient CT is normal she had pain relief I will discharge in stable condition she can follow-up with her physician, she had seen neurosurgery and apparently she is not any kind of surgical candidate. Radiography Diagnostic Testing: Clinical Impression(s) from Imaging Studies Brain CT 08/10/21 18:35 IMPRESSION: No acute intracranial abnormality. Electronically Signed: Zak Velez MD at 18:59 EDT , Discharge Plan Triage Chief Complaint: Headache ED Provider: Rafael Morejon Dx/Rx/DC Orders Clinical Impression: Headache, Brain lesion Instructions: Medicine for Pain Prescriptions: No Action lisinopril-hydrochlorothiazide 20-12.5 mg tablet 2 tab PO DAILY RF: 0 cranberry extract 500 mg capsule 500 mg PO ONCE RF: 0 lansoprazole 30 mg capsule,delayed release(DR/EC) 30 mg PO DAILY RF: 0 alprazolam 1 mg tablet PO RF: 0 quetiapine 25 mg tablet 1 tab PO QHS RF: 0 buspirone 10 mg tablet 30 tab PO BID RF: 0 Back and Body Pain Reliever 500-32.5 mg tablet 2 tab PO PRN PRN (Reason: Headache) RF: 0 All Day Allergy (cetirizine) 10 mg capsule 10 mg PO DAILY PRNRF: 0 cinnamon bark [Cinnamon] 500 mg capsule 500 mg PO DAILY RF: 0 (DME) blood sugar diagnostic Strip See Rx Instructions .ROUTE .MEDSUPPLY Qty: 100 RF: 8 (DME) OneTouch Verio test strips Strip See Rx Instructions .ROUTE .MEDSUPPLY Qty: 100 RF: 5 (DME) lancets [OneTouch Delica Plus Lancet] 33 gauge misc See Rx Instructions .ROUTE .MEDSUPPLY Qty: 100 RF: 5 (DME) blood-glucose meter [OneTouch Verio Meter] Misc See Rx Instructions .ROUTE .MEDSUPPLY Qty: 1 RF: 0 atorvastatin 80 mg tablet 80 tablet PO DAILY RF: 0 multivitamin [Daily Multi-Vitamin] Tablet 1 tab PO DAILY RF: 0 aripiprazole 5 mg tablet 2.5 mg PO QHS RF: 0 aspirin 81 MG tablet,chewable 81 mg PO DAILY@0800 RF: 0 cholecalciferol (vitamin D3) [Vitamin D3] 2,000 UNIT capsule 400 unit PO DAILY RF: 0 Cranberry Conc/C/Bacill Coag 4,200 mg PO DAILY RF: 0 naproxen 500 MG tablet 500 mg PO BID PRN Qty: 20 RF: 0 glimepiride 2 mg tablet 6 mg PO TID RF: 0 insulin lispro 100 unit/mL insulin pen 26 unit SC TID RF: 0 Lantus Solostar U-100 Insulin 100 unit/mL (3 mL) insulin pen 44 unit SC QHS RF: 0 (DME) pen needle, diabetic [BD Ultra-Fine Short Pen Needle] 31 gauge x 5/16 needle See Rx Instructions .ROUTE .MEDSUPPLY Qty: 400 RF: 3 pioglitazone 30 mg tablet 30 mg PO DAILY Qty: 90 RF: 1 levothyroxine 100 mcg tablet 100 mcg PO DAILY Qty: 90 RF: 1 Primary Care Provider: Saravanan Devine Referrals: Saravanan Devine DO [Primary Care Provider] - 2 Days Disposition Disposition: Home, Self Care
[2021-08-10] MEDS: oxyCODONE 5 MG Tablet PO (18:50)
[2021-08-10 19:22] VITALS: BP 131/79; PULSE 84; RESP 16; O2SAT 100
--- NOTE | 2021-08-10 19:22 | ED.RN ---
THIS NURSE REVIEWED D/C INSTRUCTIONS WITH PT AND VISITOR. PT VERBALIZED UNDERSTANDING OF INSTRUCTIONS. PT DENIES FURTHER NEEDS OR QUESTIONS AT THIS TIME. PT AMBULATES FROM ROOM ON OWN WITHOUT ASSISTANCE FROM STAFF
== END 2021-08-10 19:27 | disposition home or self-care (01) ==
PROVIDERS: Emergency Provider Emergency Medicine; PCP Student in an Organized Health Care Education/Training Program; Visit Provider Emergency Medicine
DX: R51.9 Headache, unspecified (principal); E11.9 Type 2 diabetes mellitus without complications; G93.9 Disorder of brain, unspecified; I10 Essential (primary) hypertension; E78.5 Hyperlipidemia, unspecified; K21.9 Gastro-esophageal reflux disease without esophagitis; E03.9 Hypothyroidism, unspecified
CPT/HCPCS: 70450; 99282

== ENCOUNTER 2022-01-25 13:11 | Emergency (ER) | payer MEDICAID, SELFPAY ==
[2022-01-25 13:13] VITALS: BP 187/90; PULSE 89; RESP 18; TEMP 36.3; O2SAT 98; BMI 42.5
--- NOTE | 2022-01-25 13:27 | EKG12_ITS ---
Test Reason : CP Blood Pressure : / mmHG Vent. Rate : 087 BPM Atrial Rate : 087 BPM P-R Int : 150 ms QRS Dur : 078 ms QT Int : 382 ms P-R-T Axes : 037 018 000 degrees QTc Int : 459 ms Normal sinus rhythm Normal ECG Confirmed by NUBIA RODRIGUEZ, SAMSON ([id number]), design editor CHRIS KAY ([id number]) on 01/28/2022 9:21:08 AM Referred By: MARCEL Confirmed By:SAMSON DELACRUZ MD
--- NOTE | 2022-01-25 13:28 | EDS_ITS ---
HPI History of Present Illness Chief Complaint: Chest Pain Informant: patient and EMS Narrative Narrative: 61-year-old female history of diabetes hypertension hypercholesterolemia presenting to the emergency room with chest pain. Patient describes a central chest heaviness notes her left arm feels heavy. Symptoms began at approximately 1130 hours while she was driving into work. She states that she got up at 1100 hours and felt fine. She had not yet had anything to eat or drink when she was on her way to work. She notes no nausea or shortness of breath. No diaphoresis. She states that she is never had this before. She ate some oatmeal cookies at work. Workers called EMS. [facility] Medical History Brain tumor Diabetes mellitus type 2 in obese GERD (gastroesophageal reflux disease) Headache History of back problems History of stroke HTN (hypertension) Hx of carpal tunnel syndrome Hyperlipidemia Hypothyroid Home Medications Cranberry Conc/C/Bacill Coag 4,200 mg PO DAILY 02/11/18 [History Last Taken Unknown] aspirin 81 mg chewable tablet 81 mg PO DAILY@0800 02/11/18 [History Last Taken Unknown] cholecalciferol (vitamin D3) 50 mcg (2,000 unit) capsule (Vitamin D3) 400 unit PO DAILY 02/11/18 [History Last Taken Unknown] naproxen 500 mg tablet 500 mg PO BID PRN #20 tabs 07/13/19 [Rx Last Taken Unknown] alprazolam 1 mg tablet tab PO 07/18/20 [History Last Taken Unknown] aspirin-caffeine 500 mg-32.5 mg tablet (Back and Body Pain Reliever) 2 tab PO PRN PRN Headache 07/18/20 [History Last Taken Unknown] blood sugar diagnostic #100 ea 07/18/20 [Rx Last Taken Unknown] blood-glucose meter (OneTouch Verio Meter) #1 ea 07/18/20 [Rx Last Taken Unknown] buspirone 10 mg tablet 30 tab PO BID 07/18/20 [History Last Taken Unknown] cetirizine 10 mg capsule (All Day Allergy (cetirizine)) 10 mg PO DAILY PRN 07/18/20 [History Last Taken Unknown] lansoprazole 30 mg capsule,delayed release 30 mg PO DAILY 07/18/20 [History Last Taken Unknown] atorvastatin 80 mg tablet 80 tablet PO DAILY 03/02/21 [History Last Taken Unknown] multivitamin (Daily Multi-Vitamin tablet) 1 tab PO DAILY 03/02/21 [History Last Taken Unknown] amitriptyline 25 mg tablet tablet PO 08/20/21 [History Last Taken Unknown] aripiprazole 5 mg tablet 5 mg PO QHS 08/20/21 [History Last Taken Unknown] ascorbate calcium (vitamin C) 500 mg capsule 500 mg PO DAILY 08/20/21 [History Last Taken Unknown] cinnamon bark 500 mg capsule (Cinnamon) 1,500 mg PO DAILY 08/20/21 [History Last Taken Unknown] cranberry extract 500 mg capsule 1,500 mg PO ONCE 08/20/21 [History Last Taken Unknown] lisinopril 40 mg tablet 40 mg PO 08/20/21 [History Last Taken Unknown] quetiapine 25 mg tablet 100 mg PO QHS 08/20/21 [History Last Taken Unknown] blood sugar diagnostic (Jottuch Verio test strips) #100 ea 09/17/21 [Rx Last Taken Unknown] insulin lispro 100 unit/mL subcutaneous pen 26 unit (0.26 mL) subcut TID #70.2 mL 09/17/21 [Rx Last Taken Unknown] lancets 33 gauge (Recycling AngelTouch Delica Plus Lancet) #100 ea 09/17/21 [Rx Last Taken Unknown] levothyroxine 100 mcg tablet 100 mcg PO DAILY #90 tabs 09/17/21 [Rx Last Taken Unknown] pen needle, diabetic 31 gauge x 5/16 (BD Ultra-Fine Short Pen Needle) #400 ea 09/17/21 [Rx Last Taken Unknown] pioglitazone 30 mg tablet 30 mg PO DAILY #90 tabs 09/17/21 [Rx Last Taken Unknown] ascorbate calcium (vitamin C) 500 mg capsule 500 mg PO DAILY 11/26/21 [History Last Taken Unknown] calcium carbonate 600 mg calcium (1,500 mg) tablet 600 mg PO DAILY 11/26/21 [History Last Taken Unknown] fremanezumab-vfrm 225 mg/1.5 mL subcutaneous auto-injector (Ajovy) mg subcut 11/26/21 [History Last Taken Unknown] Lantus Solostar U-100 Insulin 100 unit/mL (3 mL) subcutaneous pen (insulin glargine) 50 unit (0.5 mL) subcut QHS #45 mL 11/28/21 [Rx Last Taken Unknown] glimepiride 2 mg tablet 6 mg PO TID #270 tabs 12/31/21 [Rx Last Taken Unknown] Allergy/AdvReac Type Severity Reaction Status Date / Time sulfamethoxazole Allergy Shortness Verified 01/25/22 13:18 [From Bactrim] of breath trimethoprim [From Bactrim] Allergy Shortness Verified 01/25/22 13:18 of breath guaifenesin [From Mucinex] AdvReac Nausea Verified 01/25/22 13:18 Family History Other Arthritis Bleeding disorder Depression Diabetes Heart disease Hypertension Myocardial infarction Seizures Surgical History Hx of knee surgery Social History (Updated 01/25/22 @ 13:[address] Fox Nicolas DO) Smoking Status: Never smoker substance use type: does not use ROS ROS ED Constitutional Constitutional ED: Denies chills or weight loss Eyes Eyes: Denies change in vision or diplopia ENT ENT ED: Denies ear pain, rhinorrhea or sore throat Cardiovascular Cardiovascular: Reports chest pain; Denies orthopnea, palpitations or racing heartbeat Respiratory/Chest Respiratory/Chest: Denies cough, dyspnea, dyspnea on exertion or orthopnea Gastrointestinal Gastrointestinal: Denies abdominal pain, diarrhea, nausea or vomiting Genitourinary Genitourinary ED: Denies dysuria, hematuria or urinary frequency Musculoskeletal Musculoskeletal: Denies arthralgias or myalgias Integumentary Denies abscess or rash Neurologic Neurologic: Denies headache(s) or weakness Psychiatric Psychiatric: Denies anxiety, depression, suicidal ideation or suicidal thoughts Endocrine Endocrinology: Denies polydipsia, polyphagia or polyuria Allergic/Immunologic Allergic/Immunologic ED: Denies mouth swelling, tongue swelling or urticaria EXAM Physical Exam Const Vital Signs: 01/25/22 13:13 01/25/22 13:19 01/25/22 15:12 Temperature 97.3 F L Temperature Source Temporal Pulse Rate 89 79 Respiratory Rate 18 13 Respiratory Effort Normal Blood Pressure 187/90 H 160/93 H Blood Pressure Mean 122 115 Pulse Ox 98 97 Oxygen Delivery Method Room Air Room Air Positive well nourished, well developed and obese General Appearance ED: well developed Nutritional Appearance: obese HEENT Reports normocephalic, head/scalp atraumatic and moist mucous membranes Eyes PERRL and EOMs intact bilaterally Neck no lymphadenopathy, supple and no JVD Resp normal respiratory effort and clear to auscultation bilaterally Cardio regular rate, regular rhythm and no murmurs GI normal to inspection, nondistended, normoactive bowel sounds and non-tender Palpation: soft Back/Spine no CVA tenderness and normal ROM Extremity normal to inspection General Extremety ED: Negative for edema General Extremity: Negative for edema Neuro oriented x3 and CN's II-XII intact bilaterally Sensorium / Orientation: alert Motor Exam: strength 5/5 throughout Psych mental status grossly normal Mood & Affect: Negative for depressed or tearful Skin no rashes or lesions noted and no wounds Heart Score History: Slightly/Non-Suspicious ECG: Normal Age: >45 - <65 years Risk Factors: >/= 3 Risk Factors or History of CAD Score: 3 MDM MDM MDM Narrative Medical decision making narrative: My interpretation of the chest x-ray is no acute process. Hemoglobin 15.3. D- dimer in the normal range at 0.37. Troponin initially is 8. BMP showed a glucose of 216. Delta troponin was obtained. This is currently pending and the care of the patient be checked out to the oncoming physician. Lab Data Attestation: I reviewed the patient's lab results. Labs: Laboratory Results - last 24 hr 01/25/22 01/25/22 01/25/22 13:31 13:31 13:31 WBC 9.4 RBC 5.05 Hgb 15.3 H Hct 45.6 MCV 90.3 MCH 30.3 MCHC 33.6 RDW Std Deviation 46.2 H RDW Coeff of Ari 14.1 Plt Count 213 MPV 10.3 Immature Gran % (Auto) 0.300 Neut % (Auto) 66.6 Lymph % (Auto) 22.2 [place] % (Auto) 8.3 Eos % (Auto) 1.7 Baso % (Auto) 0.9 Absolute Neuts (auto) 6.3 Absolute Lymphs (auto) 2.09 Nucleated RBC % 0 D-Dimer Quant (PE/DVT) 0.37 Sodium 144 Potassium 3.6 Chloride 106 Carbon Dioxide 28.0 Anion Gap 10 BUN 13 Creatinine 0.92 Estim Creat Clear Calc 97.93 Est GFR (MDRD) Af Amer 80 Est GFR (MDRD) Non-Af 66 BUN/Creatinine Ratio 14.1 Glucose 216 H Calcium 9.5 Troponin I High Sens 8 Radiography Diagnostic Testing: Clinical Impression(s) from Imaging Studies Chest X-Ray 01/25/22 13:45 IMPRESSION: No acute cardiopulmonary process. Electronically Signed: Quita Vail MD at 14:01 EDT , EKG Initial EKG: Attestation: I personally reviewed and interpreted this EKG as follows: Comments: Normal sinus rhythm with a ventricular rate of 87 bpm. No concerning features of ACS or ectopy noted Discharge Plan Triage Chief Complaint: Chest Pain ED Provider: Fox Nicolas Dx/Rx/DC Orders Clinical Impression: Hyperlipidemia, Benign essential hypertension, Type 2 diabetes mellitus, Chest pain Prescriptions: No Action lansoprazole 30 mg capsule,delayed release(DR/EC) 30 mg PO DAILY alprazolam 1 mg tablet PO buspirone 10 mg tablet 30 tab PO BID Back and Body Pain Reliever 500-32.5 mg tablet 2 tab PO PRN PRN (Reason: Headache) All Day Allergy (cetirizine) 10 mg capsule 10 mg PO DAILY PRN (DME) blood sugar diagnostic Strip See Rx Instructions .ROUTE .MEDSUPPLY Qty: 100 8RF Rx Instructions: tid (DME) blood-glucose meter [OneTouch Verio Meter[place] [facility] [place] Instructions .ROUTE .MEDSUPPLY Qty: 1 0RF Rx Instructions: As directed quetiapine 25 mg tablet 100 mg PO QHS cranberry extract 500 mg capsule 1,500 mg PO ONCE Rx Instructions: administer with meals cinnamon bark [Cinnamon] 500 mg capsule 1,500 mg PO DAILY atorvastatin 80 mg tablet 80 tablet PO DAILY multivitamin [Daily Multi-Vitamin] Tablet 1 tab PO DAILY aripiprazole 5 mg tablet 5 mg PO QHS amitriptyline 25 mg tablet PO lisinopril 40 mg tablet 40 mg PO ascorbate calcium (vitamin C) 500 mg capsule 500 mg PO DAILY ascorbate calcium (vitamin C) 500 mg capsule 500 mg PO DAILY calcium carbonate 600 mg calcium (1,500 mg) tablet 600 mg PO DAILY Ajovy Autoinjector 225 mg/1.5 mL auto-injector subcut aspirin 81 MG tablet,chewable 81 mg PO DAILY@0800 cholecalciferol (vitamin D3) [Vitamin D3] 2,000 UNIT capsule 400 unit PO DAILY Cranberry Conc/C/Bacill Coag 4,200 mg PO DAILY naproxen 500 MG tablet 500 mg PO BID PRN Qty: 20 0RF pioglitazone 30 mg tablet 30 mg PO DAILY Qty: 90 1RF (DME) pen needle, diabetic [BD Ultra-Fine Short Pen Needle] 31 gauge x 5/16 needle See Rx Instructions .ROUTE .MEDSUPPLY Qty: 400 3RF Rx Instructions: 4 times daily levothyroxine 100 mcg tablet 100 mcg PO DAILY Qty: 90 1RF (DME) lancets [OneTouch Delica Plus Lancet] 33 gauge misc See Rx Instructions .ROUTE .MEDSUPPLY Qty: 100 5RF Rx Instructions: tid insulin lispro 100 unit/mL insulin pen 26 unit SC TID Qty: 70.2 0RF (DME) OneTouch Verio test strips Strip See Rx Instructions .ROUTE .MEDSUPPLY Qty: 100 5RF Rx Instructions: tid Lantus Solostar U-100 Insulin 100 unit/mL (3 mL) insulin pen 50 unit SC QHS Qty: 45 1RF glimepiride 2 mg tablet 6 mg PO TID Qty: 270 0RF Rx Instructions: 2 tablets with breakfast, 1 tablet with lunch Primary Care Provider: Saravanan Devine Referrals: Saravanan Devine DO [Primary Care Provider] -
[2022-01-25 13:42] LABS: Absolute Lymphocyte Count 2.09 X10^3/uL (0.83-4.51); Absolute Neutrophil Count 6.3 X10^3/uL (2.0-7.7); Basophil# 0.08 X10^3/uL; Basophil% 0.9 % (0-1); Eosinophil# 0.16 X10^3/uL; Eosinophils% 1.7 % (0-5); Hematocrit 45.6 % (37-47); Hemoglobin 15.3 g/dL (12.0-15.0); Lymphocyte # 2.09 X10^3/ul (0.83-4.51); Lymphocyte % 22.2 % (19-41); Mean Corp Hgb Conc 33.6 g/dL (32-36); Mean Corpuscular Hgb 30.3 pg (27.0-32.0); Mean Corpuscular Volume 90.3 fL (81-99); Mean Platelet Vol. 10.3 fl (6.2-12.0); Monocyte# 0.78 X10^3/uL; Monocyte% 8.3 % (0-10); NRBC Flagged by Analyzer 0 % (0-5); Neutrophil # 6.27 X10^3/uL (2.7-7.7); Neutrophil % 66.6 % (47-70); Platelet Count 213 K/mm3 (150-450); RBC Distribution Width CV 14.1 % (11.6-14.6); RBC Distribution Width SD 46.2 fl (35.1-43.9); Red Blood Count 5.05 M/mm3 (4.2-5.4); White Blood Count 9.4 K/mm3 (4.4-11.0)
--- NOTE | 2022-01-25 13:45 | RAD_ITS ---
STUDY: X-RAY CHEST REASON FOR EXAM: Female, 61 years old. Chest pain TECHNIQUE: Single frontal view of the chest. COMPARISON: 04/02/2021 FINDINGS: There is no new focal consolidation. Normal size heart. Normal mediastinum and [place]. Normal visualized pulmonary arteries. Normal visualized aortic arch and descending thoracic aorta. Normal visualized thoracic spine. Normal visualized ribs, clavicles, and shoulders. There is no demonstrated abnormality of the visualized soft tissue structures of the upper abdomen. RAD/Chest 1 View (Portable) IMPRESSION: No acute cardiopulmonary process. Electronically Signed: Quita Vail MD at 14:01 EDT ,
[2022-01-25 13:56] LABS: D-Dimer Quantitative (DVT/PE) 0.37 FEU/ug/m (0.27-0.49)
[2022-01-25 14:09] LABS: Anion Gap 10 (5-15); BUN 13 mg/dL (7-18); BUN/Creat Ratio 14.1 RATIO (10-20); Calcium,Total 9.5 mg/dL (8.5-10.1); Chloride 106 mmol/L (98-107); Creatinine, Serum 0.92 mg/dL (0.55-1.02); EST Glomerular Filtration Rate 66 mL/min (>60); Est Glom Filt Rate - Afr Amer 80 mL/min (>60); Estimated Creatinine Clearance 97.93 ml/min; Glucose 216 mg/dL (74-106); Potassium 3.6 mmol/L (3.5-5.1); Sodium Level 144 mmol/L (136-145); Troponin-I HS (w/2H Reflex) 8 pg/mL (3.0-54.0)
[2022-01-25 15:12] VITALS: BP 160/93; PULSE 79; RESP 13; O2SAT 97
[2022-01-25 15:36] LABS: Reflex Troponin-HS? (from REC) Y
[2022-01-25 16:00] VITALS: BP 135/92; PULSE 80; RESP 12; O2SAT 98
[2022-01-25 16:10] LABS: Troponin-I HS 11 pg/mL (3.0-54.0)
[2022-01-25 17:20] VITALS: BP 150/106; PULSE 77; RESP 14; O2SAT 98
== END 2022-01-25 17:27 | disposition home or self-care (01) ==
PROVIDERS: Emergency Provider Emergency Medicine; PCP Student in an Organized Health Care Education/Training Program; Visit Provider Emergency Medicine
DX: R07.9 Chest pain, unspecified (principal); E11.9 Type 2 diabetes mellitus without complications; I10 Essential (primary) hypertension; E78.5 Hyperlipidemia, unspecified; K21.9 Gastro-esophageal reflux disease without esophagitis; E03.9 Hypothyroidism, unspecified
CPT/HCPCS: 36415; 71045; 80048; 84484; 85025; 85379; 93005; 99285; A4216

== ENCOUNTER → 2022-03-25 | Outpatient (CLI) | payer MEDICAID, SELFPAY ==
[2022-03-25 15:30] LABS: Vitamin D,25 Hydroxy 36.4 ng/mL
[2022-03-25 15:38] LABS: Microalbumin,Random Urine 26.2 mg/L (NO RANGE EST.); Microalbumin:Creatinine Ratio 78.7 mg/g CRE (<30 mg/g CRE)
[2022-03-25 15:39] LABS: ALB/GLOB Ratio 1.1 RATIO (0.9-2.4); AST(SGOT) 11 U/L (15-37); Alanine Aminotransfer ALT/SGPT 29 U/L (13-56); Alkaline Phosphatase 116 U/L (45-117); Anion Gap 3 (5-15); BUN 14 mg/dL (7-18); Calcium,Total 9.9 mg/dL (8.5-10.1); Chloride 104 mmol/L (98-107); Cholesterol 171 mg/dL (200); Creatinine, Serum 0.78 mg/dL (0.55-1.02); EST Glomerular Filtration Rate 80 mL/min (>60); Est Glom Filt Rate - Afr Amer 97 mL/min (>60); Globulin 3.8 g/dL (2.2-4.2); Glucose 210 mg/dL (74-106); High Density Lipoprotein 62 mg/dL; Potassium 4.1 mmol/L (3.5-5.1); Protein, Total 7.8 g/dL (6.4-8.2); Sodium Level 141 mmol/L (136-145); T4 Free Direct 1.05 ng/dL (0.76-1.46); Triglycerides 146 mg/dL; Very Low Density Lipoprotein 29 mg/dL (5-40)
== END | disposition home or self-care (01) ==
LOC: LAB 14:07
PROVIDERS: PCP Student in an Organized Health Care Education/Training Program; Referring Provider Nurse Practitioner Family; Visit Provider Nurse Practitioner Family
DX: E11.9 Type 2 diabetes mellitus without complications (principal)
CPT/HCPCS: 36415; 80053; 80061; 82043; 82306; 82570; 84439; 84443

== ENCOUNTER 2023-05-13 13:53 | Emergency (ER) | payer MEDICAID, SELFPAY ==
[2023-05-13 13:54] VITALS: BP 174/102; PULSE 90; RESP 14; TEMP 36.8; O2SAT 100; BMI 33.3
--- NOTE | 2023-05-13 15:15 | EDS_ITS ---
HPI History of Present Illness HPI Narrative: Patient presents with pain to her right hip that has been getting worse over the past couple days. Patient states that it is worse with standing, going up stairs, and ambulation. Patient describes it as sharp. Patient states the pain has been constant. Patient states it is gradually getting worse. Patient states the pain radiates into her back. Patient also admits to some urinary frequency. Patient denies any fevers or chills. Patient denies any nausea or vomiting. Patient denies any paresthesias or weakness. Chief Complaint: Lower Extremity Injury Informant: patient Onset/Context/Timing Onset: Days (2) Context: Gradual Onset Timing: Continuous Quality of Pain: Sharp Location: Right hip and right flank Worsened by: Standing, going up stairs, and walking Relieved by: Nothing Associated Symptoms Associated Symptoms: Negative for Parasthesia, Weakness or Loss of Funtion [facility] Medical History Brain tumor Diabetes mellitus type 2 in obese GERD (gastroesophageal reflux disease) Headache History of back problems History of stroke HTN (hypertension) Hx of carpal tunnel syndrome Hyperlipidemia Hypothyroid Home Medications aspirin 81 mg chewable tablet 81 mg PO DAILY@0800 02/11/18 [History Last Taken Unknown] cholecalciferol (vitamin D3) 50 mcg (2,000 unit) capsule (Vitamin D3) 400 unit PO DAILY 02/11/18 [History Last Taken Unknown] naproxen 500 mg tablet 500 mg PO BID PRN #20 tabs 07/13/19 [Rx Last Taken Unknown] aspirin-caffeine 500 mg-32.5 mg tablet (Back and Body Pain Reliever) 2 tab PO PRN PRN Headache 07/18/20 [History Last Taken Unknown] blood sugar diagnostic #100 ea 07/18/20 [Rx Last Taken Unknown] blood-glucose meter (OneTouch Verio Meter) #1 ea 07/18/20 [Rx Last Taken Unknown] cetirizine 10 mg capsule (All Day Allergy (cetirizine)) 10 mg PO DAILY PRN 07/18/20 [History Last Taken Unknown] atorvastatin 80 mg tablet 80 tablet PO DAILY 03/02/21 [History Last Taken Unknown] multivitamin (Daily Multi-Vitamin tablet) 1 tab PO DAILY 03/02/21 [History Last Taken Unknown] aripiprazole 5 mg tablet 5 mg PO QHS 04/18/22 [History Last Taken Unknown] ascorbate calcium (vitamin C) 500 mg capsule 500 mg PO DAILY 08/20/21 [History Last Taken Unknown] blood sugar diagnostic (Gyftuch Verio test strips) #100 ea 09/17/21 [Rx Last Taken Unknown] lancets 33 gauge (OneTouch Delica Plus Lancet) #100 ea 09/17/21 [Rx Last Taken Unknown] pen needle, diabetic 31 gauge x 5/16 (BD Ultra-Fine Short Pen Needle) #400 ea 09/17/21 [Rx Last Taken Unknown] calcium carbonate 600 mg calcium (1,500 mg) tablet 600 mg PO DAILY 11/26/21 [History Last Taken Unknown] ascorbate calcium-bioflavonoid 500 mg-200 mg tablet (Hafsa-C with Bioflavonoids) 1 tab PO DAILY 03/25/22 [History Last Taken Unknown] atogepant 60 mg tablet (Qulipta) 60 mg PO 03/25/22 [History Last Taken Unknown] buspirone 30 mg tablet tablet PO 03/25/22 [History Last Taken Unknown] insulin lispro 100 unit/mL subcutaneous pen 38 unit (0.38 mL) subcut TID #102.6 mL 03/25/22 [Rx Last Taken Unknown] quetiapine 100 mg tablet 100 mg PO 03/25/22 [History Last Taken Unknown] flash glucose scanning reader (Deep Fiber SolutionsStyle Suri 2 Hydes) #1 ea 06/27/22 [Rx Last Taken Unknown] losartan 100 mg tablet 100 mg PO 06/27/22 [History Last Taken Unknown] semaglutide 0.25 mg or 0.5 mg (2 mg/3 mL) subcutaneous pen injector (Ozempic) 0.25 mg (0.368 mL) subcut QWEEK #3 mL 10/02/22 [Rx Last Taken Unknown] Lantus Solostar U-100 Insulin 100 unit/mL (3 mL) subcutaneous pen (insulin glargine) 60 unit (0.6 mL) subcut QHS #54 mL 10/14/22 [Rx Last Taken Unknown] flash glucose sensor (FreeStyle Suri 2 Sensor kit) #2 ea 11/06/22 [Rx Last Taken Unknown] levothyroxine 100 mcg tablet 100 mcg PO DAILY #30 tabs 08/17/23 [Rx Last Taken Unknown] pantoprazole 40 mg tablet,delayed release 40 mg PO DAILY #30 tabs 01/01/23 [Rx Last Taken Unknown] dapagliflozin propanediol 10 mg tablet (Farxiga) 10 mg PO DAILY #90 tabs 03/31/23 [Rx Last Taken Unknown] cephalexin 500 mg capsule 500 mg PO Q6 #12 CAPSULES 05/13/23 [Rx Last Taken Unknown] Allergy/AdvReac Type Severity Reaction Status Date / Time sulfamethoxazole Allergy Shortness Verified 05/13/23 13:54 [From Bactrim] of breath trimethoprim [From Bactrim] Allergy Shortness Verified 05/13/23 13:54 of breath metformin AdvReac Severe Diarrhea Verified 05/13/23 13:54 guaifenesin [From Mucinex] AdvReac Nausea Verified 05/13/23 13:54 Family History Other Arthritis Bleeding disorder Depression Diabetes Heart disease Hypertension Myocardial infarction Seizures Surgical History Hx of knee surgery Social History Smoking Status: Never smoker substance use type: does not use ROS ROS ED Constitutional Constitutional ED: Denies chills or fever(s) Eyes Eyes: Denies blurry vision or change in vision ENT ENT ED: Denies rhinorrhea or sore throat Cardiovascular Cardiovascular: Denies chest pain or palpitations Respiratory/Chest Respiratory/Chest: Denies cough or dyspnea Gastrointestinal Gastrointestinal: Denies nausea or vomiting Genitourinary Genitourinary ED: Reports urinary frequency; Denies dysuria or hematuria Musculoskeletal Musculoskeletal: Reports arthralgias and back pain; Denies neck pain Integumentary Denies abscess or rash Neurologic Neurologic: Denies headache(s) or weakness Allergic/Immunologic Allergic/Immunologic ED: Denies mouth swelling or urticaria EXAM Physical Exam Const Vital Signs: 05/13/23 13:54 05/13/23 15:43 Temperature 98.2 F Temperature Source Temporal Pulse Rate 90 77 Respiratory Rate 14 13 Blood Pressure 174/102 H 154/92 H Blood Pressure Mean 126 112 Pulse Ox 100 98 Oxygen Delivery Method Room Air Positive well nourished, well developed and obese General Appearance ED: well developed and NAD Nutritional Appearance: obese HEENT Reports moist mucous membranes Neck full ROM and supple Resp normal respiratory effort and clear to auscultation bilaterally Cardio regular rate and regular rhythm GI non-distended Palpation: soft and tender RLQ; Negative for guarding or rebound tenderness present Back/Spine General Back: CVA tenderness right Extremity Extremity Narrative: There is mild tenderness over the right hip. There is limited range of motion of the right hip secondary to pain. There is no obvious deformity noted. There is pain with internal and external rotation. Strength is 5/5 bilaterally in the lower extremities. There are no sensory deficits noted. Pedal pulses are equal bilaterally. Neuro oriented x3, CN's II-XII intact bilaterally, moves all extremities and no sensory deficits noted Sensorium / Orientation: alert Motor Exam: strength 5/5 throughout Psych mental status grossly normal MDM MDM MDM Narrative Medical decision making narrative: Differential diagnosis includes ureteral calculus, urinary tract infection, pyelonephritis, occult fracture right hip, occult pelvic fracture, muscular strain, and degenerative arthritis. CT scan of the abdomen and pelvis will be obtained to assess for ureteral calculus. X-rays of the right hip will be obtained to assess for degenerative arthritis and occult fracture. CBC will be obtained to assess for leukocytosis and anemia. Basic metabolic profile will be obtained to assess for electrolyte abnormality and renal function. Urinalysis will be obtained to assess for urinary tract infection and hematuria. Lab Data Attestation: I reviewed the patient's lab results. Lab results narrative: CBC was reviewed and was within normal limits. Basic metabolic profile was reviewed and was within normal limits. Urinalysis was reviewed. There is glucosuria of 1000. Leukocyte esterase was 500 with 10-25 white blood cells noted. Labs: Laboratory Results - last 24 hr 05/13/23 05/13/23 15:37 16:19 WBC 7.7 RBC 5.30 Hgb 16.0 H Hct 47.0 MCV 88.7 MCH 30.2 MCHC 34.0 RDW Std Deviation 44.5 H RDW Coeff of Ari 13.9 Plt Count 207 MPV 9.8 Immature Gran % (Auto) 0.100 Neut % (Auto) 58.9 Lymph % (Auto) 29.9 Wilkin % (Auto) 8.2 Eos % (Auto) 2.2 Baso % (Auto) 0.7 Absolute Neuts (auto) 4.5 Absolute Lymphs (auto) 2.29 Nucleated RBC % 0 Sodium 140 Potassium 3.7 Chloride 108 H Carbon Dioxide 30.0 Anion Gap 2 L BUN 10 Creatinine 0.77 Estim Creat Clear Calc 69.40 Est GFR (MDRD) Af Amer 98 Est GFR (MDRD) Non-Af 81 BUN/Creatinine Ratio 13.0 Glucose 126 H Calcium 9.0 Urine Color Yellow Urine Clarity Sl. Cloudy Urine pH 7.0 Ur Specific [place] 1.010 Urine Protein Negative Urine Glucose (UA) 1000 H Urine Ketones Negative Urine Occult Blood 25 H Urine Nitrite Negative Urine Bilirubin Negative Urine Urobilinogen Normal Ur Leukocyte Esterase 500 H Urine RBC 0-5 SEEN Urine WBC 10-25 SEEN Ur Squamous Epith Cells 0-5 SEEN Urine Bacteria RARE Urine Mucus 0 SEEN Radiography Diagnostic Testing: CT scan of the abdomen pelvis was obtained. There is no evidence of ureteral calculus, hydroureter, or hydronephrosis. There is no free air or free fluid. There is no acute abnormality noted. This was interpreted by the radiologist and was also independently reviewed by myself. X-rays of the right hip were obtained. There are 3 views. On my independent interpretation, there is no acute fracture or dislocation. There are some mild degenerative changes noted. Radiologist also interpreted the x-rays and agrees. Treatment and Re-Evaluation Narrative: Patient was given a dose of morphine here. Patient was advised of her findings. Patient was given a dose of Keflex here. Patient was given a prescription for Keflex. Patient was instructed to drink plenty of fluids. Patient was i nstructed to follow-up with her primary care physician in 5 to 7 days. Patient understood and was agreeable with the plan. All questions were answered. Discharge Plan Triage Chief Complaint: Lower Extremity Injury ED Provider: Kalyan Drake Dx/Rx/DC Orders Clinical Impression: Urinary tract infection, Acute right hip pain Instructions: ED Hip Strain, ED Cystitis Female Adult Prescriptions: New cephalexin [cephalexin] 500 mg capsule 500 mg PO Q6 Qty: 12 0RF No Action Back and Body Pain Reliever 500-32.5 mg tablet 2 tab PO PRN PRN (Reason: Headache) All Day Allergy (cetirizine) 10 mg capsule 10 mg PO DAILY PRN (DME) blood sugar diagnostic Strip See Rx Instructions .ROUTE .MEDSUPPLY Qty: 100 8RF Rx Instructions: tid (DME) blood-glucose meter [OneTouch Verio Meter] [facility] See Rx Instructions .ROUTE .MEDSUPPLY Qty: 1 0RF Rx Instructions: As directed atorvastatin 80 mg tablet 80 tablet PO DAILY multivitamin [Daily Multi-Vitamin] Tablet 1 tab PO DAILY aripiprazole 5 mg tablet 5 mg PO QHS ascorbate calcium (vitamin C) 500 mg capsule 500 mg PO DAILY calcium carbonate 600 mg calcium (1,500 mg) tablet 600 mg PO DAILY buspirone 30 mg tablet PO quetiapine 100 mg tablet 100 mg PO Hafsa-C with Bioflavonoids 500-200 mg tablet 1 tab PO DAILY Qulipta 60 mg tablet 60 mg PO Patient Comments: TAKE 1 TABLET BY MOUTH EVERY DAY insulin lispro 100 unit/mL insulin pen 38 unit SC TID Qty: 102.6 1RF losartan 100 mg tablet 100 mg PO (DME) FreeStyle Suri 2 Hydes Misc See Rx Instructions .Route Qty: 1 0RF Rx Instructions: As directed Ozempic 0.25 mg or 0.5 mg (2 mg/3 mL) pen injector 0.25 mg subcut QWEEK Qty: 3 2RF Rx Instructions: for 4 weeks pantoprazole 40 mg tablet,delayed release (DR/EC) 40 mg PO DAILY Qty: 30 5RF aspirin 81 MG tablet,chewable 81 mg PO DAILY@0800 cholecalciferol (vitamin D3) [Vitamin D3] 2,000 UNIT capsule 400 unit PO DAILY naproxen 500 MG tablet 500 mg PO BID PRN Qty: 20 0RF (DME) pen needle, diabetic [BD Ultra-Fine Short Pen Needle] 31 gauge x 5/16 needle See Rx Instructions .ROUTE .MEDSUPPLY Qty: 400 3RF Rx Instructions: 4 times daily (DME) lancets [OneTouch Delica Plus Lancet] 33 gauge misc See Rx Instructions .ROUTE .MEDSUPPLY Qty: 100 5RF Rx Instructions: tid (DME) OneTouch Verio test strips Strip See Rx Instructions .ROUTE .MEDSUPPLY Qty: 100 5RF Rx Instructions: tid Lantus Solostar U-100 Insulin 100 unit/mL (3 mL) insulin pen 60 unit SC QHS Qty: 54 1RF (DME) FreeStyle Suri 2 Sensor Kit See Rx Instructions .Route Qty: 2 5RF Rx Instructions: 1 sensor q 14 days levothyroxine 100 mcg tablet 100 mcg PO DAILY Qty: 30 3RF Farxiga 10 mg tablet 10 mg PO DAILY Qty: 90 1RF Primary Care Provider: Saravanan Devine Referrals: Saravanan Devine DO [Primary Care Provider] - 5-7 Days Disposition Disposition: Home, Self Care
--- NOTE | 2023-05-13 15:22 | CT_ITS ---
STUDY: CT ABDOMEN AND PELVIS WITHOUT CONTRAST REASON FOR EXAM: Female, 62 years old. RT FLANK PAIN RADIATION DOSAGE (If Supplied By Facility): CTDIvol = ( 13.01 ) mGy, DLP = ( 588.72 ) mGycm TECHNIQUE: Transaxial images were obtained from the dome of the diaphragm to the symphysis pubis without oral contrast, and without intravenous contrast. Sagittal and coronal images were reconstructed. Individualized dose optimization techniques were used for this CT. COMPARISON: April 29, 2014 FINDINGS: The visualized lung bases are unremarkable. The visualized portions of the heart are within normal limits. Normal liver. Normal gallbladder and extrahepatic biliary system. Normal spleen. Normal pancreas. Normal bilateral adrenal glands. Normal right kidney. Normal left kidney. Normal visualized stomach. Normal small intestine. Normal colon. No evidence for acute appendicitis Minor atherosclerotic change of the aorta without evidence for aneurysm Normal inferior vena cava. Normal retroperitoneum. Normal urinary bladder. Normal abdominal wall. Lumbar spine demonstrates mild degenerative change CT/Abdomen/Pelvis without Cont IMPRESSION: No acute abnormalities. Specifically, no evidence for renal obstruction or ureteral calculus Electronically Signed: Luis Corrales MD at 16:21 EST Reading Location ID and State: [facility] / [place] Tel , Service support ,
[2023-05-13] MEDS: Morphine 4 MG/ML Syringe IV (15:42)
[2023-05-13 15:43] VITALS: BP 154/92; PULSE 77; RESP 13; O2SAT 98
[2023-05-13 15:43] LABS: Absolute Lymphocyte Count 2.29 X10^3/uL (0.83-4.51); Absolute Neutrophil Count 4.5 X10^3/uL (2.0-7.7); Basophil# 0.05 X10^3/uL; Basophil% 0.7 % (0-1); Eosinophil# 0.17 X10^3/uL; Eosinophils% 2.2 % (0-5); Lymphocyte # 2.29 X10^3/ul (0.83-4.51); Lymphocyte % 29.9 % (19-41); Mean Corpuscular Hgb 30.2 pg (27.0-32.0); Mean Corpuscular Volume 88.7 fL (81-99); Mean Platelet Vol. 9.8 fl (6.2-12.0); Monocyte# 0.63 X10^3/uL; Monocyte% 8.2 % (0-10); NRBC Flagged by Analyzer 0 % (0-5); Neutrophil # 4.52 X10^3/uL (2.7-7.7); Neutrophil % 58.9 % (47-70); Platelet Count 207 K/mm3 (150-450); RBC Distribution Width CV 13.9 % (11.6-14.6); RBC Distribution Width SD 44.5 fl (35.1-43.9); White Blood Count 7.7 K/mm3 (4.4-11.0)
[2023-05-13 15:58] LABS: Anion Gap 2 (5-15); BUN 10 mg/dL (7-18); Chloride 108 mmol/L (98-107); Creatinine, Serum 0.77 mg/dL (0.55-1.02); EST Glomerular Filtration Rate 81 mL/min (>60); Est Glom Filt Rate - Afr Amer 98 mL/min (>60); Glucose 126 mg/dL (74-106); Potassium 3.7 mmol/L (3.5-5.1); Sodium Level 140 mmol/L (136-145)
--- NOTE | 2023-05-13 15:58 | RAD_ITS ---
STUDY: X-RAY - PELVIS AND RIGHT HIP REASON FOR EXAM: Female, 62 years old. INJURY/PAIN TECHNIQUE: 3 views of the pelvis and hip. COMPARISON: None. FINDINGS: There is a non-specific bowel gas pattern. Normal visualized soft tissue structures. Normal bilateral iliac wings, sacroiliac joints and visualized sacrum. Normal bilateral superior and inferior pubic rami. Normal pubic symphysis. Normal bilateral ischial tuberosities. Normal visualized femoral head. Minor acetabular spurring is noted.. Normal hip joint. RAD/HIP, UNI W/ Pelvis 2-3 Views IMPRESSION: Minor degenerative changes. No acute fracture or other significant abnormality. Electronically Signed: Luis Corrales MD at 17:21 EST ,
[2023-05-13 16:35] LABS: Mucous, Urine 0 SEEN /hpf (<or=2+)
[2023-05-13 16:49] LABS: Color, Urine Yellow (Yellow); Glucose, Dipstick 1000 mg/dl (Normal); Ketone-Dipstick Negative (Negative); Leukocyte Esterase-Dipstick 500 /ul (Negative); Nitrite-Dipstick Negative (Negative); Occult Blood-Urine 25 /ul (Negative); Protein-Dipstick Negative (Negative); Urine Bilirubin Dipstick Negative (Negative); Urine Clarity Sl. Cloudy (Clear); Urine Urobilinogen Normal (Normal)
[2023-05-13 16:57] LABS: White Blood Cells 10-25 SEEN /hpf (0-5)
[2023-05-13 16:58] LABS: Bacteria RARE /hpf (None Seen); Red Blood Cells-Urine 0-5 SEEN /hpf (0-5); Squamous Epithelial Cells - UA 0-5 SEEN /hpf (5-10)
--- OUTSIDE RECORDS SUMMARY | 2023-05-13 17:54 | XMS RPT_ITS | CCD ---
Author Name Unknown Address [address] [facility] [address] [place] [address] Organization [facility] Care Team Providers Care Pipe [employer] Name Role Phone LIA YUAN DO Primary Care Physician [phone] Sonali Oliva PT Unavailable Unavailable RANDALL SUTHERLAND MD Attending Unavailable LIA YUAN DO Primary Care Unavailable LIA YUAN DO Attending Unavailable LIA YUAN DO Primary Care Unavailable RANDALL SUTHERLAND MD Attending Unavailable LIA YUAN DO Primary Care Unavailable Allergies Allergy Classification Reported Allergen(s) Allergy Type Date of Onset Reaction(s) Facility (4 sources) Acetaminophen / Pseudoephedrine; Translations: [acetaminophen-pseud oephedrine] Drug Allergy N&V [facility] Work Phone: (4 sources) guaiFENesin; Translations: [guaifenesin] Drug Allergy N&V [facility] Work Phone: (4 sources) Promethazine; Translations: [promethazine] Drug Allergy muscle twitching [facility] Work Phone: (4 sources) Pseudoephedrine; Translations: [pseudoephedrine] Drug Allergy SICK TO STOMACH [facility] Work Phone: (8 sources) Sulfamethoxazole / Trimethoprim; Translations: [sulfamethoxazole-tr imethoprim] Drug Allergy Headache (finding), Vomiting (disorder), Nausea (finding) [facility] Work Phone: Medications Current Medications Medication Drug Class(es) Dates Sig (Normalized) Sig (Original) Tylenol (4 sources) Start: 05-31-2020 Tylenol See Instructions, Oral, 0 Refill(s) Start Date: 05/31/20 Status: Ordered Amitriptyline (2 sources) Tricyclic Antidepressant Start: 07-03-2021 amitriptyline Oral, qHS, 0 Refill(s) Start Date: 07/03/21 Status: Ordered ARIPiprazole 5 mg oral tablet (4 sources) Atypical Antipsychotic Start: 05-02-2021 ARIPiprazole 5 mg oral tablet Dose : 5 mg = 1 tab(s), qDay, 0 Refill(s) Start Date: 05/02/21 Status: Ordered Completed/Discontinued Medications Medication Drug Class(es) Dates Sig (Normalized) Sig (Original) Allergy relief 10mg (1 source) Start: 09-29-2019 Allergy relief 10mg Allergy relief 10mg, 1, Oral, Daily, 0 Refill(s), 80.3 Start Date: 09/29/19 Status: Ordered Problems Problem Classification Problem Date Documented Da te Episodic/Chronic Anxiety disorders (15 sources) Anxiety; Translations: [Panic attack] 07-03-2020 Chronic Cardiac dysrhythmias (4 sources) Tachycardia 01-22-2021 Episodic Diabetes mellitus with complications (4 sources) Type II diabetes mellitus uncontrolled 05-31-2020 Chronic Diabetes mellitus without complication (1 source) Diabetes mellitus 09-01-2019 Chronic Diseases of mouth; excluding dental (4 sources) Numbness of tongue 08-26-2019 Episodic Disorders of lipid metabolism (4 sources) Mixed hyperlipidemia 09-01-2019 Chronic Esophageal disorders (4 sources) Gastroesophageal reflux disease 08-26-2019 Chronic Essential hypertension (4 sources) Hypertensive disorder 09-01-2019 Chronic Gastrointestinal hemorrhage (4 sources) Rectal hemorrhage 08-26-2019 Episodic Genitourinary symptoms and ill-defined conditions (1 source) Microalbuminuria 04-16-2022 Episodic Headache; including migraine (4 sources) Migraine 08-26-2019 Chronic Headache; including migraine (3 sources) Headache 05-02-2021 Episodic Mood disorders (4 sources) Severe major depression 07-25-2020 Chronic Nonspecific chest pain (8 sources) Atypical chest pain; Translations: [Chest pain] 08-26-2019 Episodic Open wounds of extremities (4 sources) Puncture wound of hand 06-09-2020 Episodic Other and unspecified benign neoplasm (1 source) 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 Other bone disease and musculoskeletal deformities (4 sources) Cervical somatic dysfunction 10-26-2019 Episodic Other bone disease and musculoskeletal deformities (1 source) Osteopenia 11-16-2021 Episodic Other circulatory disease (2 sources) Vascular insufficiency 07-03-2021 Episodic Other connective tissue disease (4 sources) Muscle pain 07-25-2020 Episodic Other connective tissue disease (3 sources) Swelling of lower limb 05-02-2021 Episodic Other gastrointestinal disorders (4 sources) Irritable bowel syndrome 08-26-2019 Chronic Other gastrointestinal disorders (4 sources) Heartburn 02-23-2018 Episodic Other injuries and conditions due to external causes (4 sources) Contusion 06-23-2020 Episodic Other injuries and conditions due to external causes (2 sources) At low risk for fall 10-22-2021 Episodic Other nervous system disorders (4 sources) Carpal tunnel syndrome 10-21-2019 Chronic Results Test Name Value Interpretation Reference Range Facil ity Encounters Encounter Date Encounter Type Care Provider Facility Start: 03-25-2023 End: 03-26-2023 ambulatory LIA YUAN DO Facility:B Start: 12-05-2022 End: 12-06-2022 ambulatory RANDALL SUTHERLAND MD Facility:A Start: 05-20-2022 End: 05-21-2022 ambulatory RANDALL SUTHERLAND MD Facility:B Start: 05-20-2022 End: 05-20-2022 Patient encounter procedure RANDALL SUTHERLAND MD [facility] Start: 11-13-2021 End: 11-13-2021 Patient encounter procedure LIA YUAN DO [facility] Start: 05-22-2021 End: 05-22-[address] ROYCE VEGA MD [facility] Start: 04-18-2021 End: 04-18-2021 Patient encounter procedure LAI YUAN DO [facility] Procedures Date Procedure Procedure Detail Performing Clinician Start: 01-26-2020 Decompression of med maxx nerve LIA CARLOSERIC DO Immunizations Immunization Date Immunization Notes Care Provider Souleymane jonathan 11-02-2021 COVID-19, mRNA, LNP- S, PF, 100 mcg or 50 mcg dose; Translations: [Moderna COVID-19 Vaccine] LIA YUAN DO [facility] 10-04-2020 SARS-CoV-2 (COVID-19 ) mRNA-1273 vaccine LIA YUAN DO [facility] 09-06-2020 SARS-CoV-2 (COVID-19 ) mRNA-1273 vaccine LIA CARLOSERIC DO [facility] 06-09-2020 tetanus toxoid, redu delia diphtheria toxoid, and acellular pertussis vaccine, adsorbed; Translations: [Boostrix (Tdap)] LIA YAUN DO [facility] 12-03-2016 tetanus toxoid, redu delia diphtheria toxoid, and acellular pertussis vaccine, adsorbed LIA CARLOSERIC DO [facility] 12-02-2016 tetanus toxoid, redu delia diphtheria toxoid, and acellular pertussis vaccine, adsorbed LIA CARLOSERIC DO [facility] Payers Date Payer Category Payer Unknown [id number] 2022 Unknown [id number] 1960 Unknown [id number] 1960 Unknown [id number] 1960 Unknown [id number] Social History Date Type Detail Facility Start: 11-12-2018 Never smoked t obacco (finding) [facility] Sex Assigned At Female [facility] Clinical Notes 04-19-2021 to 11-13-2021 [facility] Note Date & Type Note Facility 11-13-2021 Note ORIGINAL EXAMINATION: BONE DENSITOMETRY11/13/2021 1:44 pm TECHNIQUE: Dual energy bone densitometry lumbar spine and left hip. COMPARISON: None HISTORY: ORDERING SYSTEM PROVIDED HISTORY: Reason for Exam: Osteoporosis Screening Osteoporosis screening. FINDINGS: Total bone mineral density of the L1-L4 is 0.850 grams per square centimeters, and T-score being -1.8, indicating that this patient has osteopenia. Bone mineral density of the left femoral neck is 0.604 grams per square centimeters, and T-score being -2.2, indicating that this patient has osteopenia. Total bone mineral density of the left hip is 0.810 grams per square centimeters, and T-score being -1.1, indicating that this patient has osteopenia. FRAX score: 10 year risk major osteoporotic fracture is 8.8%. 10 year risk hip fracture is 1.1%. IMPRESSION: Osteopenia. I have personally reviewed the images of this examination and agree with the resident's findings and interpretation. Interpreted by: Sophia Roth Preliminary Report By: Vitaliy Del Cid Electronically signed By Sophia Roth Dictated Date: 11/13/2021 1:58:48 PM Prelim Date: 11/13/2021 2:34:59 PM Sign Date: 11/13/2021 2:34:59 PM Ordering Provider: LIA YUAN [facility] 11-13-2021 Note ORIGINAL EXAMINATION: BONE DENSITOMETRY11/13/2021 1:44 pm TECHNIQUE: Dual energy bone densitometry lumbar spine and left hip. COMPARISON: None HISTORY: ORDERING SYSTEM PROVIDED HISTORY: Reason for Exam: Osteoporosis Screening Osteoporosis screening. FINDINGS: Total bone mineral density of the L1-L4 is 0.850 grams per square centimeters, and T-score being -1.8, indicating that this patient has osteopenia. Bone mineral density of the left femoral neck is 0.604 grams per square centimeters, and T-score being -2.2, indicating that this patient has osteopenia. Total bone mineral density of the left hip is 0.810 grams per square centimeters, and T-score being -1.1, indicating that this patient has osteopenia. FRAX score: 10 year risk major osteoporotic fracture is 8.8%. 10 year risk hip fracture is 1.1%. IMPRESSION: Osteopenia. I have personally reviewed the images of this examination and agree with the resident's findings and interpretation. Interpreted by: Sophia Roth Preliminary Report By: Vitaliy Del Cid Electronically signed By Sophia Roth Dictated Date: 11/13/2021 1:58:48 PM Prelim Date: 11/13/2021 2:34:59 PM Sign Date: 11/13/2021 2:34:59 PM Ordering Provider: [facility] 04-19-2021 Note HNO ID: [id number] Author: RT Chloe(R) Service: ? Author Type: Technologist Type: Progress Notes Filed: 04/19/2021 9:48 AM Note Text: Radiology Service Progress Note PATIENT NAME: Vivian Ruvalcaba DATE OF SERVICE: April 19, 2021 TIME: 9:39 AM PATIENT IDENTITY VERIFICATION COMPLETED USING TWO (2) IDENTIFIERS: Name and Date of confirmed by patient verbally. FALL SCREENING: Has the patient had 2 falls in the last year or 1 fall with injury or currently using an Ambulatory Assistive Device (Walker, Cane, Wheelchair, Crutches, etc.)? No PATIENT GENDER DATA: Female. status: : No status: NO. PATIENT RELEVANT IMPLANT DATA REVIEWED: Not Applicable RADIOLOGY DEPARTMENT: General X-ray: Exam(s) Completed: Lower Extremity X-Ray(s): Feet, Bilateral and Wt. Bearing PERIPHERAL IV DATA: Not applicable SIGNED BY: RT Chloe(R) April 19, 2021 9:39 AM [facility] 04-19-2021 Note HNO ID: [id number] Author: Srinivas Hawkins Service: ? Author Type: Physician Type: Progress Notes Filed: 04/19/2021 9:27 AM Note Text: Initial Office Visit Subjective: This 60 year old female presents to clinic for diabetic foot check. Patient has the following complaints: b/l lower extremity swelling. Patient has noticed swelling in her legs that has been going on since March. Patient states the longer she is on her foot, the more swelling she develops and subsequently the more pain she develops. She recently went to the [facility] ED for her lower extremity swelling. She had her heart examined and she was told her heart was fine and she was informed that there was nothing they could do. Patient has yet to discuss this swelling with her pcp. She states that she was unable to get in with her pcp which is why she came here. She states in addition to the swelling in her legs, she complains of pain in her feet. She states she feels like she is walking like an 80 year old. Patient admits to being diabetic for many years now. Patient +B/T/N in feet at this time. Patient +pain in legs when walking. No other pedal complaints at this time. No change in medications or medical history since last visit. Patient denies smoking. PAIN EVALUATION 04/19/2021 0857 Pain Level: 8 Duration Amount of Time: 1 bilateral feet Duration Units: Months Frequency: Continuous Intervention/Comfort measure: Medication Comments: copper OTC compression stockings and shoe inserts have not helped, OT pain relievers No results found for: HBA1C PCP: Praful Magdaleno, DO PAST MEDICAL HISTORY Diagnosis Date - HTN (hypertension) - Hypothyroidism - Mixed hyperlipidemia - Type 2 diabetes mellitus (HCC) Current Outpatient Medications Medication Sig - cranberry fruit extract (CRANBERRY ORAL) Take by mouth. - cholecalciferol, vitamin D3, (VITAMIN D3 ORAL) Take by mouth. - aspirin 81 mg chewable tablet Take 81 mg by mouth once daily. - aspirin/acetaminophen/caffeine (EXCEDRIN MIGRAINE ORAL) Take by mouth. - aspirin-caffeine (ANGELO BACK AND BODY) 500-32.5 mg tab Take by mouth. - sertraline (ZOLOFT) 100 mg tablet Take 100 mg by mouth once daily. - Levothyroxine 100 mcg cap Take by mouth. - empagliflozin (JARDIANCE) 25 mg tablet Take 25 mg by mouth daily with breakfast. - pantoprazole DR (PROTONIX) 40 mg tablet Take 40 mg by mouth once daily. - multivit-min/iron/folic/lutein (ULTIMATE WOMEN'S COMPLETE 50+ ORAL) Take by mouth. - docosahexanoic acid/epa (FISH OIL ORAL) Take by mouth. (Patient not taking: Reported on 04/19/2021 ) - SUCRALFATE ORAL Take 40 mg by mouth once daily. - insulin glargine,hum.rec.anlog (TOUJEO MAX U-300 SOLOSTAR SUBCUTANEOUS) Inject 42 mg subcutaneously. No current facility-administered medications for this visit. ALLERGIES Allergen Reactions - Sudafed [Pseudoephe* GI Upset PAST SURGICAL HISTORY Procedure Laterality Date - SECTION HX - PAST SURGICAL HISTORY OF Bilateral CTR with revisions on both hands - PAST SURGICAL HISTORY OF Bilateral knee arthroscopies for menisectomy - PAST SURGICAL HISTORY OF exploratory lap abdomen - TONSILLECTOMY AND ADENOIDECTOMY HX No family history on file. Social History Tobacco Use - Smoking status: Never Smoker - Smokeless tobacco: Never Used Substance Use Topics - Alcohol use: Never - Drug use: Never REVIEW OF SYSTEMS GENERAL: Negative for Malaise, significant weight loss, fever RESPIRATORY: Negative for cough, wheezing and shortness of breath CARDIOVASCULAR: Negative for chest pain, leg swelling and palpitations GI: Negative for abdominal discomfort, blood in stools or black stools and change in bowel habits : Negative for dysuria, frequency and incontinence MUSCULOSKELETAL: Negative for joint pain or swelling, back pain, and muscle pain. SKIN: Negative for lesions, rash, and itching. HEMATOLOGY/LYMPHOLOGY Negative for prolonged bleeding, bruising easily, and swollen nodes. ENDOCRINE: Negative for cold or heat intolerance, polyuria, polydipsia and goiter. NEURO: negative The remainder of the review of systems is noncontributory. Objective: Patient presents to clinic ambulating in [facility] Constitutional: Pt is a well developed 60 year old female who is alert, oriented, cooperative and in no apparent distress. Eyes: Following during examination. No redness or drainage. Respiratory: RR normal and nonlabored. Even breathing. No evidence of distress. Psychology: Patient is engaged during conversation. Normal affect and mood. Does not appear depressed or anxious. Vasc: DP and PT pulses are palpable bilateral. CFT is less than 5 seconds bilateral. Skin temperature is warm to warm proximal to distal bilateral. There is + edema or varicosities noted. Hair growth present. Calf pain present to left lower extremity Neuro: Protective sensation is intact to the foot (more content not included)... [facility] 04-19-2021 Note HNO ID: [id number] Author: Hannah Kinney RN Service: ? Author Type: ? Type: Progress Notes Filed: 04/19/2021 9:27 AM Note Text: Patient presents with: Right Foot - New Left Foot - New Diabetic Foot Care AMB ROOMING INTAKE FLOWSHEET DATA Risk Screening Do you have concerns about personal safety or safety in the home?: No Pain Pain Level: 8 Duration Amount of Time: 1 (bilateral feet) Duration Units: Months Frequency: Continuous Intervention/Comfort measure: Medication Comments: copper OTC compression stockings and shoe inserts have not helped, OT pain relievers Pt. presents as new patient. She has not had foot care for years. She has had swollen painful feet since 03-05-2021 and she stands on feet at work 8 hours per day. She has tried OTC items, uncertain what is in pain relievers, without help. She states she fell yesterday twisting left ankle as well. She rates this an 8 as well. No bruising observed at this time. She states she went to [facility] to have her heart checked out at end of March and it was fine. [facility] Evaluation + Plan note Future Appointments Appointment Date:06/06/2021 02:00:00 PM Scheduled Provider:LIA YUAN DO Location:[facility] Appointment Type: OV Future Scheduled TestsMRI Brain w/ + w/o Contrast 01/28/21MRI Spine Cervical w/o Contrast 11/20/20 [facility] Evaluation + Plan note Future Appointments Appointment Date:06/06/2021 02:00:00 PM Scheduled Provider:LIA YUAN DO Location:[facility] Appointment Type:PC OV Appointment Date:11/12/2021 10:00:00 AM Scheduled Provider: Location:[facility] Appointment Type:MRI Brain w/ + w/o Contrast Future Scheduled TestsMRI Brain w/ + w/o Contrast 01/28/21MRI Brain w/ + w/o Contrast 11/12/21MRI Spine Cervical w/o Contrast 11/20/20 [facility] Evaluation + Plan note Future Appointments Appointment Date:04/16/2022 10:00:00 AM Scheduled Provider:LIA YUAN DO Location:[facility] Appointment Type:PC OV Follow Up Future Scheduled TestsRubella Antibody 10/22/21Thyroid Stimulating Hormone 07/03/21A1C Hemoglobin 07/03/21Complete Blood Count 10/22/21Complete Blood Count 07/03/21Lipid Profile 10/22/21Lipid Profile 07/03/21Microalbumin Level Urine 10/22/21Microalbumin Level Urine 07/03/21Mumps Antibody 10/22/21Rubeola IgG Antibody 10/22/21Complete Metabolic Panel 10/22/21Complete Metabolic Panel 07/03/21MRI Brain w/ + w/o Contrast 01/28/21MRI Spine Cervical w/o Contrast 11/20/20 [facility] Evaluation + Plan note Future Appointments Appointment Date:10/15/2022 10:30:00 AM Scheduled Provider:LIA YUAN DO Location:[facility] Appointment Type:PC Wellness Annual Future Scheduled TestsRubella Antibody 10/22/21Rubella Antibody 04/16/22Thyroid Stimulating Hormone 07/03/21Thyroid Stimulating Hormone 04/16/22A1C Hemoglobin 07/03/21A1C Hemoglobin 04/16/22Complete Blood Count 10/22/21Complete Blood Count 07/03/21Complete Blood Count 04/16/22Lipid Profile 10/22/21Lipid Profile 07/03/21Lipid Profile 04/16/22Microalbumin Level Urine 10/22/21Microalbumin Level Urine 07/03/21Microalbumin Level Urine 04/16/22Mumps Antibody 10/22/21Mumps Antibody 04/16/22Rubeola IgG Antibody 10/22/21Rubeola IgG Antibody 04/16/22Varicella Zoster Antibody 04/16/22Complete Metabolic Panel 10/22/21Complete Metabolic Panel 07/03/21Complete Metabolic Panel 04/16/22 [facility] Hospital course Narrative No data available for this section [facility] Hospital Discharge instructions No data available for this section [facility] Progress note No data available for this section [facility] Summary Purpose Family History No Family History Records FoundNo Family History Records Found Advance Directives No Advanced Directives Records FoundNo Advanced Directives Records Found Additional Source Comments INFORMATION SOURCE (unrecogn ized section and content) DATE CREATED AUTHOR AUTHOR'S ORGANIZ ATION 03/29/2023 [facility] ([place] Care Team (unrecognized sect ion and content) Care Team Personnel Name: Sarah Oliva Clermeredith Lyon PT Position: P3 Scheduling - Nurse Tech Advanced Member Role: Other Name: LIA YUAN DO Position: P4 Physician - Primary Care Med Service: Active Provider Member Role: Primary Care Physician Address: Address: [address] [place] [address] Name: BRYAN LEVIN MD Member Role: Product Design Manager Address: Address: [address] [place] [address] Care Team Related Persons Name: KIMANI WILSON Name: KIMANI WILSON Name: KIMANI RUVALCABA Care Team Personnel Name: Sarah Oliva PT Position: P3 Scheduling - Nurse Tech Advanced Member Role: Other Name: LIA YUAN DO Position: P4 Physician - Primary Care Member Role: Primary Care Physician Address: Address: [address] [place] [address] Name: BRYAN LEVIN MD Member Role: Product Design Manager Address: Address: [address] [place] [address] Care Team Related Persons Name: KIMANI WILSON FOR RECORDS PERTAINING TO PATIENTS WHO ARE OR HAVE BEEN ENROLLED IN A CHEMICAL DEPENDENCY/SUBSTANCEABUSE PROGRAM, SOME INFORMATION MAY BE OMITTED. This clinical summary was aggregated from multiple sources. Caution should be exercised in using it in the provision of clinical care. This summary normalizes information from multiple sources, and as a consequence, information in this document may materially change the coding, format and clinical context of patient data. In addition, data may be omitted in some cases. CLINICAL DECISIONS SHOULD BE BASED ON THE PRIMARY CLINICAL RECORDS. [facility] [employer] [facility]. provides no warranty or guarantee of the accuracy or completeness of information in this document.
[2023-05-13 18:34] VITALS: BP 175/76; PULSE 75; RESP 13; TEMP 36.7; O2SAT 98
[2023-05-13] MEDS: Cephalexin 500 MG Capsule PO (18:36)
== END 2023-05-13 18:47 | disposition home or self-care (01) ==
PROVIDERS: Emergency Provider Emergency Medicine; PCP Student in an Organized Health Care Education/Training Program; Visit Provider Emergency Medicine
DX: M25.551 Pain in right hip (principal); E11.9 Type 2 diabetes mellitus without complications; N39.0 Urinary tract infection, site not specified; Z86.73 Personal history of transient ischemic attack (TIA), and cerebral infarction without residual deficits; I10 Essential (primary) hypertension; E78.5 Hyperlipidemia, unspecified; Z79.82 Long term (current) use of aspirin; Z79.899 Other long term (current) drug therapy; Z79.85 Long-term (current) use of injectable non-insulin antidiabetic drugs; E03.9 Hypothyroidism, unspecified; K21.9 Gastro-esophageal reflux disease without esophagitis
CPT/HCPCS: 73502; 74176; 80048; 81001; 85025; 96374; 99284; A4216

== ENCOUNTER → 2023-05-26 | Outpatient (CLI) | payer MEDICAID, SELFPAY ==
--- NOTE | 2023-05-26 15:22 | MRI_ITS ---
STUDY: MRI BRAIN WITH AND WITHOUT CONTRAST REASON FOR EXAM: Female, 62 years old. BENIGN NEOPLASM TECHNIQUE: Multiplanar multisequence imaging of the brain was performed without and following the administration of 15 cc Clariscan intravenous contrast. COMPARISON: Noncontrast head CT 08/10/2021 FINDINGS: The ventricles, cisterns, and sulci are within normal limits for patients age. There is no restricted diffusion to suggest acute ischemia or infarction. No succeptibility artifict to suggest intracranial hemorrhage or mineralization. Major intracranial signal voids are preserved. There is no midline shift, mass effect, or extra axial fluid collections are seen. No CP angle or IAC mass is seen. The orbits are unremarkable. The sella turcica and craniovertebral junction are within normal limits. The visualized paranasal sinuses are clear. The mastoid air cells are clear. No abnormal enhancement is seen. MRI/Brain W/WO Contrast IMPRESSION: No intracranial hemorrhage, acute infarct, or space occupying lesion seen. Electronically Signed: Eric Valdivia MD at 22:17 EST ,
== END | disposition home or self-care (01) ==
PROVIDERS: PCP Student in an Organized Health Care Education/Training Program; Referring Provider Psychiatry & Neurology Neurology; Visit Provider Psychiatry & Neurology Neurology
DX: D33.2 Benign neoplasm of brain, unspecified (principal)
CPT/HCPCS: 70553; A9575

== ENCOUNTER 2023-05-31 16:08 | Emergency (ER) | payer MEDICAID, SELFPAY ==
[2023-05-31 16:09] VITALS: BP 155/94; PULSE 97; RESP 18; TEMP 36.1; O2SAT 97; BMI 34.1
--- NOTE | 2023-05-31 16:30 | ED.RN ---
c/o feeling sluggish and lightheaded with numbness/tingling around the mouth. also c/o being tired and urinating frequently. several weeks ago treated for a UTI
--- NOTE | 2023-05-31 16:36 | EX.ED.DYSGE1 ---
HPI History of Present Illness Chief Complaint: Hyperglycemia Informant: patient Onset/Context/Timing Onset: Days (3) Context: Gradual Onset Timing: Continuous Quality: Lightheaded, fatigued Location: Generalized Worsened by: Nothing Relieved by: Nothing Narrative Narrative: Patient presents with elevated blood sugars that have been getting worse over the past 3 days. Patient states they have been in the upper 300s the past 3 days. Patient states she has felt lightheaded and fatigued. Patient also admits to some tingling in the perioral area. Patient admits to some urinary frequency but denies any dysuria or hematuria. Patient states she has been drinking a lot of water to try and bring her blood sugars down. Patient denies any chest pain or shortness of breath. Patient denies any nausea or vomiting. Patient denies any visual changes. [facility] Medical History (Updated 05/31/23 @ 18:[address] Kalyan Drake, DO) Brain tumor Diabetes mellitus type 2 in obese GERD (gastroesophageal reflux disease) Headache History of back problems History of stroke HTN (hypertension) Hx of carpal tunnel syndrome Hyperlipidemia Hypothyroid Home Medications aspirin 81 mg chewable tablet 81 mg PO DAILY@0800 02/11/18 [History Last Taken Unknown] cholecalciferol (vitamin D3) 50 mcg (2,000 unit) capsule (Vitamin D3) 400 unit PO DAILY 02/11/18 [History Last Taken Unknown] naproxen 500 mg tablet 500 mg PO BID PRN #20 tabs 07/13/19 [Rx Last Taken Unknown] aspirin-caffeine 500 mg-32.5 mg tablet (Back and Body Pain Reliever) 2 tab PO PRN PRN Headache 07/18/20 [History Last Taken Unknown] blood sugar diagnostic #100 ea 07/18/20 [Rx Last Taken Unknown] blood-glucose meter (OneTouch Verio Meter) #1 ea 07/18/20 [Rx Last Taken Unknown] cetirizine 10 mg capsule (All Day Allergy (cetirizine)) 10 mg PO DAILY PRN 07/18/20 [History Last Taken Unknown] atorvastatin 80 mg tablet 80 tablet PO DAILY 03/02/21 [History Last Taken Unknown] multivitamin (Daily Multi-Vitamin tablet) 1 tab PO DAILY 03/02/21 [History Last Taken Unknown] aripiprazole 5 mg tablet 5 mg PO QHS 08/20/21 [History Last Taken Unknown] ascorbate calcium (vitamin C) 500 mg capsule 500 mg PO DAILY 08/20/21 [History Last Taken Unknown] lancets 33 gauge (EversnapTouch Delica Plus Lancet) #100 ea 09/17/21 [Rx Last Taken Unknown] pen needle, diabetic 31 gauge x 5/16 (BD Ultra-Fine Short Pen Needle) #400 ea 09/17/21 [Rx Last Taken Unknown] calcium carbonate 600 mg calcium (1,500 mg) tablet 600 mg PO DAILY 11/26/21 [History Last Taken Unknown] ascorbate calcium-bioflavonoid 500 mg-200 mg tablet (Hafsa-C with Bioflavonoids) 1 tab PO DAILY 03/25/22 [History Last Taken Unknown] atogepant 60 mg tablet (Qulipta) 60 mg PO 03/25/22 [History Last Taken Unknown] buspirone 30 mg tablet tablet PO 03/25/22 [History Last Taken Unknown] quetiapine 100 mg tablet 100 mg PO 03/25/22 [History Last Taken Unknown] flash glucose scanning reader (BrainLAB Suri 2 [place]) #1 ea 06/27/22 [Rx Last Taken Unknown] losartan 100 mg tablet 100 mg PO 06/27/22 [History Last Taken Unknown] semaglutide 0.25 mg or 0.5 mg (2 mg/3 mL) subcutaneous pen injector (Ozempic) 0.25 mg (0.368 mL) subcut QWEEK #3 mL 10/02/22 [Rx Last Taken Unknown] Lantus Solostar U-100 Insulin 100 unit/mL (3 mL) subcutaneous pen (insulin glargine) 60 unit (0.6 mL) subcut QHS #54 mL 10/14/22 [Rx Last Taken Unknown] cephalexin 500 mg capsule 500 mg PO Q6 #12 CAPSULES 05/13/23 [Rx Last Taken Unknown] blood sugar diagnostic (OneTouch Verio test strips) #100 ea 05/22/23 [Rx Last Taken Unknown] dapagliflozin propanediol 10 mg tablet (Farxiga) 10 mg PO DAILY #90 tabs 05/22/23 [Rx Last Taken Unknown] flash glucose sensor (SQMOSStyle Suri 2 Sensor kit) #2 ea 05/22/23 [Rx Last Taken Unknown] insulin lispro 100 unit/mL subcutaneous pen 38 unit (0.38 mL) subcut TID #102.6 mL 05/22/23 [Rx Last Taken Unknown] levothyroxine 100 mcg tablet 100 mcg PO DAILY #30 tabs 05/22/23 [Rx Last Taken Unknown] pantoprazole 40 mg tablet,delayed release 40 mg PO DAILY #30 tabs 05/22/23 [Rx Last Taken Unknown] nitrofurantoin monohydrate/macrocrystals 100 mg capsule 100 mg PO Q12 #10 CAPSULES 05/31/23 [Rx Last Taken Unknown] Allergy/AdvReac Type Severity Reaction Status Date / Time sulfamethoxazole Allergy Shortness Verified 05/31/23 16:09 [From Bactrim] of breath trimethoprim [From Bactrim] Allergy Shortness Verified 05/31/23 16:09 of breath metformin AdvReac Severe Diarrhea Verified 05/31/23 16:09 guaifenesin [From Mucinex] AdvReac Nausea Verified 05/31/23 16:09 Family History Other Arthritis Bleeding disorder Depression Diabetes Heart disease Hypertension Myocardial infarction Seizures Surgical History (Updated 05/31/23 @ 16:[address] Kalyan Drake DO) History of carpal tunnel surgery Hx of appendectomy Hx of knee surgery Hx of tonsillectomy S/P ventral herniorrhaphy Social History Smoking Status: Never smoker substance use type: does not use ROS ROS ED Constitutional Constitutional ED: Denies chills or fever(s) Eyes Eyes: Denies blurry vision or change in vision ENT ENT ED: Reports rhinorrhea; Denies sore throat Cardiovascular Cardiovascular: Denies chest pain or palpitations Respiratory/Chest Respiratory/Chest: Denies cough or dyspnea Gastrointestinal Gastrointestinal: Denies nausea or vomiting Genitourinary Genitourinary ED: Reports urinary frequency; Denies dysuria or hematuria Musculoskeletal Musculoskeletal: Reports neck pain; Denies back pain Integumentary Denies abscess or rash Neurologic Neurologic: Reports headache(s); Denies weakness Endocrine Endocrinology: Reports polyuria Allergic/Immunologic Allergic/Immunologic ED: Denies mouth swelling or urticaria EXAM Physical Exam Const Vital Signs: 05/31/23 16:09 05/31/23 16:29 Temperature 96.9 F L Temperature Source Temporal Pulse Rate 97 Respiratory Rate 18 Respiratory Effort Normal Respiratory Pattern Normal Blood Pressure 155/94 H Blood Pressure Mean 114 Pulse Ox 97 Oxygen Delivery Method Room Air Positive well nourished, well developed and obese General Appearance ED: well developed and NAD Nutritional Appearance: obese HEENT Reports moist mucous membranes Neck supple and no JVD Resp normal respiratory effort and clear to auscultation bilaterally Cardio regular rate and regular rhythm GI non-tender and non-distended Palpation: soft Extremity normal to inspection General Extremety ED: Negative for edema or tenderness General Extremity: Negative for edema Neuro oriented x3, CN's II-XII intact bilaterally and no sensory deficits noted Sensorium / Orientation: alert Motor Exam: strength 5/5 throughout Psych mental status grossly normal MDM MDM MDM Narrative Medical decision making narrative: Differential diagnosis includes hyperglycemia, DKA, hyperosmolar hyperglycemic nonketotic state, urinary tract infection, and viral illness. CBC will be obtained to assess for leukocytosis and anemia. Basic metabolic profile will be obtained to assess for hyperglycemia, metabolic acidosis, electrolyte abnormality, and renal function. Urinalysis will be obtained to assess for urinary tract infection, glucosuria, and ketonuria. COVID-19, influenza, and RSV PCR will be obtained to assess for viral illness. Lab Data Attestation: I reviewed the patient's lab results. Lab results narrative: CBC was reviewed and was within normal limits. Basic metabolic profile was reviewed. Glucose was 381. The remainder was essentially within normal limits. Urinalysis was reviewed. Leukocyte esterase was 100 with 10-25 white blood cells and 1+ bacteria. Serum acetone level was reviewed and was negative. Labs: Laboratory Results - last 24 hr 05/31/23 05/31/23 05/31/23 16:24 16:30 16:55 WBC 8.0 RBC 5.09 Hgb 15.1 H Hct 46.4 MCV 91.2 MCH 29.7 MCHC 32.5 RDW Std Deviation 48.1 H RDW Coeff of Ari 14.4 Plt Count 206 MPV 10.4 Immature Gran % (Auto) 0.300 Neut % (Auto) 63.1 Lymph % (Auto) 27.0 Garvin % (Auto) 6.8 Eos % (Auto) 1.9 Baso % (Auto) 0.9 Absolute Neuts (auto) 5.1 Absolute Lymphs (auto) 2.16 Nucleated RBC % 0 Sodium 140 Potassium 3.5 Chloride 110 H Carbon Dioxide 24.0 Anion Gap 6 BUN 20 H Creatinine 0.92 Estim Creat Clear Calc 58.76 Est GFR (MDRD) Af Amer 79 Est GFR (MDRD) Non-Af 66 BUN/Creatinine Ratio 21.7 H Glucose 381 H Calcium 9.3 Urine Color Yellow Urine Clarity Sl. Cloudy Urine pH 6.5 Ur Specific Vanduser 1.015 Urine Protein 15 H Urine Glucose (UA) 1000 H Urine Ketones Negative Urine Occult Blood 10 H Urine Nitrite Negative Urine Bilirubin Negative Urine Urobilinogen Normal Ur Leukocyte Esterase 100 H Urine RBC 0 SEEN Urine WBC 10-25 SEEN Ur Squamous Epith Cells 0-5 SEEN Urine Bacteria 1+ Urine Mucus 0 SEEN Urine Yeast RARE Acetone Level NEGATIVE POC Glucose 357 H Treatment and Re-Evaluation :: Patient was given a dose of subcu insulin here. Patient was advised of her findings. Patient was given a dose of Macrobid here. Patient was given a prescription for Macrobid. Patient was instructed to continue to monitor her blood sugars at home. Patient was instructed to follow-up with her primary care physician in 5 to 7 days. Patient understood and was agreeable with the plan. All questions were answered. Discharge Plan Triage Chief Complaint: Hyperglycemia ED Provider: Kalyan Drake Dx/Rx/DC Orders Clinical Impression: Hyperglycemia, Cystitis Prescriptions: New nitrofurantoin monohyd/m-cryst [nitrofurantoin monohyd/m-cryst] 100 mg capsule 100 mg PO Q12 Qty: 10 0RF No Action Back and Body Pain Reliever 500-32.5 mg tablet 2 tab PO PRN PRN (Reason: Headache) All Day Allergy (cetirizine) 10 mg capsule 10 mg PO DAILY PRN (DME) blood sugar diagnostic Strip See Rx Instructions .ROUTE .MEDSUPPLY Qty: 100 8RF Rx Instructions: tid (DME) blood-glucose meter [OneTouch Verio Meter] [facility] See Rx Instructions .ROUTE .MEDSUPPLY Qty: 1 0RF Rx Instructions: As directed atorvastatin 80 mg tablet 80 tablet PO DAILY multivitamin [Daily Multi-Vitamin] Tablet 1 tab PO DAILY aripiprazole 5 mg tablet 5 mg PO QHS ascorbate calcium (vitamin C) 500 mg capsule 500 mg PO DAILY calcium carbonate 600 mg calcium (1,500 mg) tablet 600 mg PO DAILY buspirone 30 mg tablet PO quetiapine 100 mg tablet 100 mg PO Hafsa-C with Bioflavonoids 500-200 mg tablet 1 tab PO DAILY Qulipta 60 mg tablet 60 mg PO Patient Comments: TAKE 1 TABLET BY MOUTH EVERY DAY losartan 100 mg tablet 100 mg PO (DME) FreeStyle Suri 2 [place] Misc See Rx Instructions .Route Qty: 1 0RF Rx Instructions: As directed Ozempic 0.25 mg or 0.5 mg (2 mg/3 mL) pen injector 0.25 mg subcut QWEEK Qty: 3 2RF Rx Instructions: for 4 weeks aspirin 81 MG tablet,chewable 81 mg PO DAILY@0800 cholecalciferol (vitamin D3) [Vitamin D3] 2,000 UNIT capsule 400 unit PO DAILY naproxen 500 MG tablet 500 mg PO BID PRN Qty: 20 0RF cephalexin [cephalexin] 500 mg capsule 500 mg PO Q6 Qty: 12 0RF (DME) pen needle, diabetic [BD Ultra-Fine Short Pen Needle] 31 gauge x 5/16 needle See Rx Instructions .ROUTE .MEDSUPPLY Qty: 400 3RF Rx Instructions: 4 times daily (DME) lancets [OneTouch Delica Plus Lancet] 33 gauge misc See Rx Instructions .ROUTE .MEDSUPPLY Qty: 100 5RF Rx Instructions: tid Lantus Solostar U-100 Insulin 100 unit/mL (3 mL) insulin pen 60 unit SC QHS Qty: 54 1RF (DME) OneTouch Verio test strips Strip See Rx Instructions .ROUTE .MEDSUPPLY Qty: 100 0RF Rx Instructions: tid (DME) FreeStyle Suri 2 Sensor Kit See Rx Instructions .Route Qty: 2 0RF Rx Instructions: 1 sensor q 14 days Farxiga 10 mg tablet 10 mg PO DAILY Qty: 90 0RF insulin lispro 100 unit/mL insulin pen 38 unit SC TID Qty: 102.6 0RF pantoprazole 40 mg tablet,delayed release (DR/EC) 40 mg PO DAILY Qty: 30 0RF levothyroxine 100 mcg tablet 100 mcg PO DAILY Qty: 30 0RF Primary Care Provider: Saravanan Devine Referrals: Saravanan Devine DO [Primary Care Provider] - 5-7 Days Disposition Disposition: Home, Self Care
--- OUTSIDE RECORDS SUMMARY | 2023-05-31 16:48 | XMS RPT_ITS | CCD ---
Author Name Unknown Address [address] [place] [address] Organization [facility] Care Team Providers Care Special Tax Auditor Name Role Phone LIA YUAN DO Primary Care Physician [phone] Sonali Oliva PT Unavailable Unavailable RANDALL SUTHERLAND MD Attending Unavailable LIA YUAN DO Primary Care Unavailable LIA YUAN DO Attending Unavailable LIA YUAN DO Primary Care Unavailable RANDALL SUTHERLAND MD Attending Unavailable LIA YUAN DO Primary Care Unavailable Allergies Allergy Classification Reported Allergen(s) Allergy Type Date of Onset Reaction(s) Facility (4 sources) Acetaminophen / Pseudoephedrine; Translations: [acetaminophen-pseud oephedrine] Drug Allergy N&V [facility] Work Phone: (4 sources) guaiFENesin; Translations: [guaifenesin] Drug Allergy N&V [facility] Work Phone: (4 sources) Promethazine; Translations: [promethazine] Drug Allergy muscle twitching [facility] Work Phone: (4 sources) Pseudoephedrine; Translations: [pseudoephedrine] Drug Allergy SICK TO STOMACH [facility] Work Phone: (8 sources) Sulfamethoxazole / Trimethoprim; Translations: [sulfamethoxazole-tr imethoprim] Drug Allergy Headache (finding), Vomiting (disorder), Nausea (finding) [facility] Work Phone: Medications Current Medications Medication [...] 05-20-2022 Patient encounter procedure RANDALL SUTHERLAND MD [facility] Start: 11-13-2021 End: 11-13-2021 Patient encounter procedure LIA YUAN DO [facility] Start: 05-22-2021 End: 05-22-[address] ROYCE VEGA MD [facility] Start: 04-18-2021 End: 04-18-2021 Patient encounter procedure LIA YUAN DO [facility] Procedures Date Procedure Procedure Detail Performing Clinician Start: 01-26-2020 Decompression of med maxx nerve LIA CARLOSERIC DO Immunizations Immunization Date Immunization Notes Care Provider Souleymane jonathan 11-02-2021 COVID-19, mRNA, LNP- S, PF, 100 mcg or 50 mcg dose; Translations: [Moderna COVID-19 Vaccine] LIA YUAN DO [facility] 10-04-2020 SARS-CoV-2 (COVID-19 ) mRNA-1273 vaccine LIA YUAN DO [facility] 09-06-2020 SARS-CoV-2 (COVID-19 ) mRNA-1273 vaccine LIA CARLOSERIC DO [facility] 06-09-2020 tetanus toxoid, redu delia diphtheria toxoid, and acellular pertussis vaccine, adsorbed; Translations: [Boostrix (Tdap)] LIA YUAN DO [facility] 12-03-2016 tetanus toxoid, redu delia diphtheria toxoid, and acellular pertussis vaccine, adsorbed LIA CARLOSERIC DO [facility] 12-02-2016 tetanus toxoid, redu delia diphtheria toxoid, and acellular pertussis vaccine, adsorbed LIA CARLOSERIC DO [facility] Payers Date Payer Category Payer Unknown [id number] 2022 Unknown [id number] 1960 Unknown [id number] 1960 Unknown [id number] 1960 Unknown [id number] Social History Date Type Detail Facility Start: 11-12-2018 Never smoked t obacco (finding) [facility] Sex Assigned At Female [facility] Clinical Notes 04-19-2021 to 11-13-2021 RadiologyRadiologyLaboratoryRadiologyLaboratory [...] 11/13/2021 2:34:59 PM Ordering Provider: LIA YUAN [facility] 11-13-2021 Note ORIGINAL EXAMINATION: BONE DENSITOMETRY11/13/2021 [...] Sign Date: 11/13/2021 2:34:59 PM Ordering Provider: [facility] 04-19-2021 Note HNO ID: [id number] Author: RT Chloe(R) Service: ? Author Type: [...] RT Chloe(R) April 19, 2021 9:39 AM [facility] 04-19-2021 Note HNO ID: [id number] Author: Srinivas Hawkins Service: ? Author Type: [...] she develops. She recently went to [facility] ED for her lower extremity swelling. She [...] Patient presents to clinic ambulating in [facility] Constitutional: Pt is a well developed 60 [...] to the foot (more content not included)... [facility] 04-19-2021 Note HNO ID: [id number] Author: Hannah Kinney RN Service: ? Author [...] this time. She states she went to [facility] to have her heart checked out at end of March and it was fine. [facility] Evaluation + Plan note Future Appointments Appointment Date:06/06/2021 02:00:00 PM Scheduled Provider:LIA YUAN DO Location:[facility] Appointment Type: OV Future Scheduled TestsMRI Brain w/ + w/o Contrast 01/28/21MRI Spine Cervical w/o Contrast 11/20/20 [facility] Evaluation + Plan note Future Appointments Appointment Date:06/06/2021 02:00:00 PM Scheduled Provider:LIA YUAN DO Location:[facility] Appointment Type:PC OV Appointment Date:11/12/2021 10:00:00 AM Scheduled Provider: Location:[facility] Appointment Type:MRI Brain w/ + w/o Contrast Future Scheduled TestsMRI Brain w/ + w/o Contrast 01/28/21MRI Brain w/ + w/o Contrast 11/12/21MRI Spine Cervical w/o Contrast 11/20/20 [facility] Evaluation + Plan note Future Appointments Appointment Date:04/16/2022 10:00:00 AM Scheduled Provider:LIA YUAN DO [facility] Appointment Type:PC OV Follow Up Future Scheduled TestsRubella Antibody 10/22/21Thyroid Stimulating Hormone 07/03/21A1C Hemoglobin 07/03/21Complete Blood Count 10/22/21Complete Blood Count 07/03/21Lipid Profile 10/22/21Lipid Profile 07/03/21Microalbumin Level Urine 10/22/21Microalbumin Level Urine 07/03/21Mumps Antibody 10/22/21Rubeola IgG Antibody 10/22/21Complete Metabolic Panel 10/22/21Complete Metabolic Panel 07/03/21MRI Brain w/ + w/o Contrast 01/28/21MRI Spine Cervical w/o Contrast 11/20/20 [facility] Evaluation + Plan note Future Appointments Appointment Date:10/15/2022 10:30:00 AM Scheduled Provider:LIA YUAN DO Location:[facility] Appointment Type:PC Wellness Annual Future [...] 10/22/21Complete Metabolic Panel 07/03/21Complete Metabolic Panel 04/16/22 [facility] Hospital course Narrative No data available for this section [facility] Hospital Discharge instructions No data available for this section [facility] Progress note No data available for this section [facility] Summary Purpose Family History No Family History Records FoundNo Family History Records Found Advance Directives No Advanced Directives Records FoundNo Advanced Directives Records Found Additional Source Comments INFORMATION SOURCE (unrecogn ized section and content) DATE CREATED AUTHOR AUTHOR'S ORGANIZ ATION 03/29/2023 [facility] ([place]) Care Team (unrecognized sect ion and content) Care Team Personnel Name: Sarah Oliva Clermeredith Lyon PT Position: P3 Scheduling - Protective Services Social Worker Advanced Member Role: Other Name: LIA YUAN DO Position: P4 Physician - Primary Care Med Service: Active Provider Member Role: Primary Care Physician Address: Address: [address] [place] [address] Name: BRYAN LEVIN MD Member Role: Coat Examiner Address: Address: [address] [place] [address] Care Team Related Persons Name: KIMANI WILSON Name: KIMANI WILSON Name: KIMANI RUVALCABA Care Team Personnel Name: Sarah Oliva PT Position: P3 Scheduling - Protective Services Social Worker Advanced Member Role: Other Name: LIA YUAN DO Position: P4 Physician - Primary Care Member Role: Primary Care Physician Address: Address: [address] [place] [address] Name: BRYAN LEVIN MD Member Role: Coat Examiner Address: Address: [address] [place] [address] Care Team Related Persons Name: KIMANI WILSON [...] BE BASED ON THE PRIMARY CLINICAL RECORDS. [facility] [employer] [facility]. provides no warranty or guarantee of the accuracy or completeness of information in this document.
[2023-05-31 16:50] LABS: Bedside Glucose 357 mg/dL (74-106)
[2023-05-31] MEDS: 0.9% Normal Saline (1000mL) 1,000 ML 1000 ML IV (16:55)
[2023-05-31 16:58] LABS: Absolute Lymphocyte Count 2.16 X10^3/uL (0.83-4.51); Absolute Neutrophil Count 5.1 X10^3/uL (2.0-7.7); Basophil# 0.07 X10^3/uL; Basophil% 0.9 % (0-1); Eosinophil# 0.15 X10^3/uL; Eosinophils% 1.9 % (0-5); Hematocrit 46.4 % (37-47); Hemoglobin 15.1 g/dL (12.0-15.0); Lymphocyte # 2.16 X10^3/ul (0.83-4.51); Mean Corp Hgb Conc 32.5 g/dL (32-36); Mean Corpuscular Hgb 29.7 pg (27.0-32.0); Mean Corpuscular Volume 91.2 fL (81-99); Mean Platelet Vol. 10.4 fl (6.2-12.0); Monocyte# 0.54 X10^3/uL; Monocyte% 6.8 % (0-10); NRBC Flagged by Analyzer 0 % (0-5); Neutrophil # 5.06 X10^3/uL (2.7-7.7); Neutrophil % 63.1 % (47-70); Platelet Count 206 K/mm3 (150-450); RBC Distribution Width CV 14.4 % (11.6-14.6); RBC Distribution Width SD 48.1 fl (35.1-43.9); Red Blood Count 5.09 M/mm3 (4.2-5.4)
[2023-05-31 17:03] LABS: Mucous, Urine 0 SEEN /hpf (<or=2+); Red Blood Cells-Urine 0 SEEN /hpf (0-5)
[2023-05-31 17:05] LABS: Color, Urine Yellow (Yellow); Glucose, Dipstick 1000 mg/dl (Normal); Ketone-Dipstick Negative (Negative); Leukocyte Esterase-Dipstick 100 /ul (Negative); Nitrite-Dipstick Negative (Negative); Occult Blood-Urine 10 /ul (Negative); Protein-Dipstick 15 mg/dl (Negative); Specific Gravity, Urine 1.015 (1.002-1.030); Urine Bilirubin Dipstick Negative (Negative); Urine Clarity Sl. Cloudy (Clear); Urine Urobilinogen Normal (Normal); Urine pH 6.5 (5.0 - 8.0)
[2023-05-31 17:10] LABS: Anion Gap 6 (5-15); BUN 20 mg/dL (7-18); BUN/Creat Ratio 21.7 RATIO (10-20); Calcium,Total 9.3 mg/dL (8.5-10.1); Chloride 110 mmol/L (98-107); Creatinine, Serum 0.92 mg/dL (0.55-1.02); EST Glomerular Filtration Rate 66 mL/min (>60); Est Glom Filt Rate - Afr Amer 79 mL/min (>60); Estimated Creatinine Clearance 58.76 ml/min; Glucose 381 mg/dL (74-106); Potassium 3.5 mmol/L (3.5-5.1); Sodium Level 140 mmol/L (136-145)
[2023-05-31 17:14] LABS: Bacteria 1+ /hpf (None Seen); Squamous Epithelial Cells - UA 0-5 SEEN /hpf (5-10); White Blood Cells 10-25 SEEN /hpf (0-5); Yeast-Urine RARE /hpf (None Seen)
[2023-05-31] MEDS: Insulin Lispro 100 UNIT/ML INSULN.PEN 10 UNIT SC (17:57)
[2023-05-31] MEDS: Nitrofurantoin Macrocrystals 100 MG Capsule PO (17:58)
[2023-05-31 18:47] VITALS: BP 170/98; RESP 16; O2SAT 98
[2023-05-31 19:15] LABS: Bedside Glucose 193 mg/dL (74-106)
== END 2023-05-31 18:48 | disposition home or self-care (01) ==
PROVIDERS: Emergency Provider Emergency Medicine; PCP Student in an Organized Health Care Education/Training Program; Visit Provider Emergency Medicine
DX: E11.65 Type 2 diabetes mellitus with hyperglycemia (principal); Z79.4 Long term (current) use of insulin; N30.90 Cystitis, unspecified without hematuria; Z86.73 Personal history of transient ischemic attack (TIA), and cerebral infarction without residual deficits; I10 Essential (primary) hypertension; E78.5 Hyperlipidemia, unspecified; Z79.82 Long term (current) use of aspirin; Z79.899 Other long term (current) drug therapy; E03.9 Hypothyroidism, unspecified; K21.9 Gastro-esophageal reflux disease without esophagitis; Z90.49 Acquired absence of other specified parts of digestive tract
CPT/HCPCS: 80048; 81001; 82009; 82962; 85025; 87086; 87088; 87631; 96360; 99283; A4216

== ENCOUNTER → 2023-06-05 | Outpatient (CLI) | payer MEDICAID, SELFPAY ==
[2023-06-05 11:39] LABS: Microalbumin,Random Urine 5.8 mg/L (NO RANGE EST.); Microalbumin:Creatinine Ratio 16.5 mg/g CRE (<30 mg/g CRE)
[2023-06-05 11:45] LABS: Vitamin D,25 Hydroxy 33.9 ng/mL
[2023-06-05 11:50] LABS: ALB/GLOB Ratio 1.1 RATIO (0.9-2.4); AST(SGOT) 20 U/L (15-37); Alanine Aminotransfer ALT/SGPT 43 U/L (13-56); Albumin, Serum 4.2 g/dL (3.2-5.0); Alkaline Phosphatase 115 U/L (45-117); Anion Gap 6 (5-15); BUN 14 mg/dL (7-18); Calcium,Total 10.1 mg/dL (8.5-10.1); Chloride 104 mmol/L (98-107); Cholesterol 173 mg/dL (200); EST Glomerular Filtration Rate 60 mL/min (>60); Est Glom Filt Rate - Afr Amer 72 mL/min (>60); Globulin 3.9 g/dL (2.2-4.2); Glucose 287 mg/dL (74-106); High Density Lipoprotein 61 mg/dL; Potassium 3.5 mmol/L (3.5-5.1); Protein, Total 8.1 g/dL (6.4-8.2); Sodium Level 137 mmol/L (136-145); T4 Free Direct 0.99 ng/dL (0.76-1.46); Triglycerides 153 mg/dL; Very Low Density Lipoprotein 31 mg/dL (5-40)
--- OUTSIDE RECORDS SUMMARY | 2023-06-05 13:01 | XMS RPT_ITS | CCD ---
Author Name Unknown Address [address] [place] [address] Organization [facility] Care Team Providers Care Manager Physical Name Role Phone LIA YUAN DO Primary Care Physician [phone] Sonali Oliva PT Unavailable Unavailable RANDALL SUTHERLAND MD Attending Unavailable LIA YUAN DO Primary Care Unavailable LIA YUAN DO Attending Unavailable LIA YUAN DO Primary Care Unavailable RANDALL SUTHERLAND MD Attending Unavailable LIA YUAN DO Primary Care Unavailable Allergies Allergy Classification Reported Allergen(s) Allergy Type Date of Onset Reaction(s) Facility (4 sources) Acetaminophen / Pseudoephedrine; Translations: [acetaminophen-pseud oephedrine] Drug Allergy N&V [facility] Work Phone: (4 sources) guaiFENesin; Translations: [guaifenesin] Drug Allergy N&V [facility] Work Phone: (4 sources) Promethazine; Translations: [promethazine] Drug Allergy muscle twitching [facility] Work Phone: (4 sources) Pseudoephedrine; Translations: [pseudoephedrine] Drug Allergy SICK TO STOMACH [facility] Work Phone: (8 sources) Sulfamethoxazole / Trimethoprim; Translations: [sulfamethoxazole-tr imethoprim] Drug Allergy Headache (finding), Vomiting (disorder), Nausea (finding) [facility] Work Phone: Medications Current Medications Medication Drug [...] 05-20-2022 Patient encounter procedure RANDALL SUTHERLAND MD [facility] Start: 11-13-2021 End: 11-13-2021 Patient encounter procedure LIA YUAN DO [facility] Start: 05-22-2021 End: 05-22-[address] ROYCE VEGA MD [facility] Start: 04-18-2021 End: 04-18-2021 Patient encounter procedure LIA YUAN DO [facility] Procedures Date Procedure Procedure Detail Performing Clinician Start: 01-26-2020 Decompression of med maxx nerve LIA CARLOSERIC DO Immunizations Immunization Date Immunization Notes Care Provider Souleymane jonathan 11-02-2021 COVID-19, mRNA, LNP- S, PF, 100 mcg or 50 mcg dose; Translations: [Moderna COVID-19 Vaccine] LIA YUAN DO [facility] 10-04-2020 SARS-CoV-2 (COVID-19 ) mRNA-1273 vaccine LIA YUAN DO [facility] 09-06-2020 SARS-CoV-2 (COVID-19 ) mRNA-1273 vaccine LIA CARLOSERIC DO [facility] 06-09-2020 tetanus toxoid, redu delia diphtheria toxoid, and acellular pertussis vaccine, adsorbed; Translations: [Boostrix (Tdap)] LIA YUAN DO [facility] 12-03-2016 tetanus toxoid, redu delia diphtheria toxoid, and acellular pertussis vaccine, adsorbed LIA CARLOSERIC DO [facility] 12-02-2016 tetanus toxoid, redu delia diphtheria toxoid, and acellular pertussis vaccine, adsorbed LIA CARLOSERIC DO [facility] Payers Date Payer Category Payer Unknown [id number] 2022 Unknown [id number] 1960 Unknown [id number] 1960 Unknown [id number] 1960 Unknown [id number] Social History Date Type Detail Facility Start: 11-12-2018 Never smoked t obacco (finding) [facility] Sex Assigned At Female [facility] Clinical Notes 04-19-2021 to 11-13-2021 RadiologyRadiologyLaboratoryRadiologyLaboratory [...] 11/13/2021 2:34:59 PM Ordering Provider: LIA YUAN [facility] 11-13-2021 Note ORIGINAL EXAMINATION: BONE DENSITOMETRY11/13/2021 1:44 [...] Sign Date: 11/13/2021 2:34:59 PM Ordering Provider: [facility] 04-19-2021 Note HNO ID: [id number] Author: RT Chloe(R) Service: ? Author Type: [...] RT Chloe(R) April 19, 2021 9:39 AM [facility] 04-19-2021 Note HNO ID: [id number] Author: Srinivas Hawkins Service: ? Author Type: [...] she develops. She recently went to the [facility] ED for her lower extremity swelling. She [...] Objective: Patient presents to clinic ambulating in [facility] Constitutional: Pt is a well developed [...] to the foot (more content not included)... [facility] 04-19-2021 Note HNO ID: [id number] Author: Hannah Kinney RN Service: ? Author [...] this time. She states she went to [facility] to have her heart checked out at end of March and it was fine. [facility] Evaluation + Plan note Future Appointments Appointment Date:06/06/2021 02:00:00 PM Scheduled Provider:LIA YUAN DO [facility] Appointment Type: OV Future Scheduled TestsMRI Brain w/ + w/o Contrast 01/28/21MRI Spine Cervical w/o Contrast 11/20/20 [facility] Evaluation + Plan note Future Appointments Appointment Date:06/06/2021 02:00:00 PM Scheduled Provider:LIA YUAN DO Location[facility] Appointment Type:PC OV Appointment Date:11/12/2021 10:00:00 AM Scheduled Provider: Location:[facility] Appointment Type:MRI Brain w/ + w/o Contrast Future Scheduled TestsMRI Brain w/ + w/o Contrast 01/28/21MRI Brain w/ + w/o Contrast 11/12/21MRI Spine Cervical w/o Contrast 11/20/20 [facility] Evaluation + Plan note Future Appointments Appointment Date:04/16/2022 10:00:00 AM Scheduled Provider:LIA YUAN DO [facility] Type:PC OV Follow Up Future Scheduled TestsRubella Antibody 10/22/21Thyroid Stimulating Hormone 07/03/21A1C Hemoglobin 07/03/21Complete Blood Count 10/22/21Complete Blood Count 07/03/21Lipid Profile 10/22/21Lipid Profile 07/03/21Microalbumin Level Urine 10/22/21Microalbumin Level Urine 07/03/21Mumps Antibody 10/22/21Rubeola IgG Antibody 10/22/21Complete Metabolic Panel 10/22/21Complete Metabolic Panel 07/03/21MRI Brain w/ + w/o Contrast 01/28/21MRI Spine Cervical w/o Contrast 11/20/20 [facility] Evaluation + Plan note Future Appointments Appointment Date:10/15/2022 10:30:00 AM Scheduled Provider:LIA YUAN DO Location:[facility] Appointment Type:PC Wellness Annual Future [...] 10/22/21Complete Metabolic Panel 07/03/21Complete Metabolic Panel 04/16/22 [facility] Hospital course Narrative No data available for this section [facility] Hospital Discharge instructions No data available for this section [facility] Progress note No data available for this section [facility] Summary Purpose Family History No Family History Records FoundNo Family History Records Found Advance Directives No Advanced Directives Records FoundNo Advanced Directives Records Found Additional Source Comments INFORMATION SOURCE (unrecogn ized section and content) DATE CREATED AUTHOR AUTHOR'S ORGANIZ ATION 03/29/2023 [facility] ([place]) Care Team (unrecognized sect ion and content) Care Team Personnel Name: Sarah Oliva Clermeredith Lyon PT Position: P3 Scheduling - Bread Racker Advanced Member Role: Other Name: LIA YUAN DO Position: P4 Physician - Primary Care Med Service: Active Provider Member Role: Primary Care Physician Address: Address: [address] [place] [address] Name: BRYAN LEVIN MD Member Role: Dental Nurse Address: Address: [address] [place] [address] Care Team Related Persons Name: KIMANI WILSON Name: KIMANI WILSON Name: KIMANI RUVALCABA Care Team Personnel Name: Sarah Oliva PT Position: P3 Scheduling - Bread Racker Advanced Member Role: Other Name: LIA YUAN DO Position: P4 Physician - Primary Care Member Role: Primary Care Physician Address: Address: [address] [place] [address] Name: BRYAN LEVIN MD Member Role: Dental Nurse Address: Address: [address] [place] [address] Care Team Related Persons Name: KIMANI WILSON [...] BE BASED ON THE PRIMARY CLINICAL RECORDS. [facility] [employer] [facility]. provides no warranty or guarantee of the accuracy or completeness of information in this document.
== END | disposition home or self-care (01) ==
LOC: LAB 10:52
PROVIDERS: PCP Student in an Organized Health Care Education/Training Program; Referring Provider Nurse Practitioner Family; Visit Provider Nurse Practitioner Family
DX: E03.9 Hypothyroidism, unspecified (principal); E11.9 Type 2 diabetes mellitus without complications; E55.9 Vitamin D deficiency, unspecified; E66.9 Obesity, unspecified; E78.5 Hyperlipidemia, unspecified
CPT/HCPCS: 36415; 80053; 80061; 82043; 82306; 82570; 84439; 84443

== ENCOUNTER → 2023-12-10 | Outpatient (CLI) | payer MEDICAID, SELFPAY ==
[2023-12-10 14:46] LABS: T4 Free Direct 0.99 ng/dL (0.76-1.46); Thyroid Stim Hormone (TSH) 0.56 uIU/mL (0.358-3.74)
== END | disposition home or self-care (01) ==
PROVIDERS: PCP Student in an Organized Health Care Education/Training Program; Referring Provider Nurse Practitioner Family; Visit Provider Nurse Practitioner Family
DX: E03.9 Hypothyroidism, unspecified (principal)
CPT/HCPCS: 36415; 84439; 84443

== ENCOUNTER 2023-12-26 11:05 | Emergency (ER) | payer MEDICAID, SELFPAY ==
[2023-12-26 11:06] VITALS: BP 160/100; PULSE 99; RESP 16; TEMP 35.9; O2SAT 98
[2023-12-26 11:07] VITALS: BMI 36.3
--- NOTE | 2023-12-26 11:17 | EX.ED.DYSGE1 ---
HPI History of Present Illness Chief Complaint: Lower Extremity Injury Detail of Chief Complaint: Atraumatic left knee pain Informant: patient Onset/Context/Timing Onset: Yesterday Context: Sudden Onset Timing: Continuous Quality: Pain Location: 4 cm above the malleolus I to the junction of the mid and distal left foot Current Severity: Mild Maximum Severity: Severe Worsened by: Weight bearing and movement Relieved by: Nothing Associated Symptoms Associated Symptoms: Denies paresthesia, burning sensation, diabetic neuropathy, history of gout Narrative Narrative: Patient is a 63-year-old woman. She has been diabetic for some time. She is on insulin. She states her blood sugars have been higher than normal because she was out of her insulin for 1 to 2 days. She denies history of gout or pseudogout. She denies fever, chills night sweats. She denies history of trauma. Patient states pain started abruptly yesterday. She has no symptoms of claudication. She has not noticed swelling. She has not noted discoloration. Prior similar symptoms: No Recent Illness/Hospitalization: No PFSH PFS Medical History Brain tumor History of stroke Hypothyroid GERD (gastroesophageal reflux disease) Hyperlipidemia HTN (hypertension) Headache Hx of carpal tunnel syndrome Diabetes mellitus type 2 in obese History of back problems Home Medications ?Medication ?Instructions ?Recorded ?Last Taken ?Type aspirin 81 mg chewable tablet 81 mg PO DAILY@0800 02/11/18 Unknown History blood sugar diagnostic #100 ea 07/18/20 Unknown Rx blood-glucose meter (OneTouch #1 ea 07/18/20 Unknown Rx Verio Meter) multivitamin (Daily Multi-Vitamin 1 tab PO DAILY 03/02/21 Unknown History tablet) aripiprazole 5 mg tablet 5 mg PO QHS 08/20/21 Unknown History lancets 33 gauge (OneTouch Delica #100 ea 09/17/21 Unknown Rx Plus Lancet) pen needle, diabetic 31 gauge x #400 ea 09/17/21 Unknown Rx 09/17 (BD Ultra-Fine Short Pen Needle) ascorbate calcium-bioflavonoid 500 1 tab PO DAILY 03/25/22 Unknown History mg-200 mg tablet (Hafsa-C with Bioflavonoids) flash glucose scanning reader #1 ea 06/27/22 Unknown Rx (FreeStyle Suri 2 Spiritwood) blood sugar diagnostic (ADARTISuch #100 ea 05/22/23 Unknown Rx Verio test strips) Lantus Solostar U-100 Insulin 100 60 unit (0.6 mL) subcut QHS #54 mL 06/05/23 Unknown Rx unit/mL (3 mL) subcutaneous pen (insulin glargine) dapagliflozin propanediol 10 mg 10 mg PO DAILY #90 tabs 06/05/23 Unknown Rx tablet (Farxiga) insulin lispro 100 unit/mL 38 unit (0.38 mL) subcut TID 06/05/23 Unknown Rx subcutaneous pen #102.6 mL pantoprazole 40 mg tablet,delayed 40 mg PO DAILY #30 tabs 06/05/23 Unknown Rx release atorvastatin 80 mg tablet 80 mg PO DAILY #30 tabs 09/04/23 Unknown Rx buspirone 30 mg tablet 30 mg PO BID 09/04/23 Unknown History quetiapine 100 mg tablet 100 mg PO DAILY 09/04/23 Unknown History riboflavin (vitamin B2) 100 mg 200 mg PO BID 09/04/23 Unknown History tablet (Vitamin B-2) losartan 100 mg tablet 100 mg PO DAILY #30 tabs 11/05/23 Unknown Rx flash glucose sensor (FreeStyle #2 ea 12/10/23 Unknown Rx Suri 2 Sensor kit) levothyroxine 100 mcg tablet 100 mcg PO DAILY #30 tabs 12/10/23 Unknown Rx semaglutide 1 mg/dose (4 mg/3 mL) 1 mg (0.75 mL) subcut QWEEK #3 mL 12/18/23 Unknown Rx subcutaneous pen injector (Ozempic) naproxen 500 mg tablet 500 mg PO BID #14 tabs 12/26/23 Unknown Rx Allergy/AdvReac Type Severity Reaction Status Date / Time sulfamethoxazole (From Allergy Shortness Verified 12/26/23 11:06 Bactrim) of breath trimethoprim (From Bactrim) Allergy Shortness Verified 12/26/23 11:06 of breath metformin AdvReac Severe Diarrhea Verified 12/26/23 11:06 guaifenesin (From Mucinex) AdvReac Nausea Verified 12/26/23 11:06 Family History Other Arthritis Bleeding disorder Depression Diabetes Heart disease Hypertension Myocardial infarction Seizures Surgical History S/P ventral herniorrhaphy Hx of tonsillectomy Hx of appendectomy History of carpal tunnel surgery Hx of knee surgery Social History Smoking Status: Never smoker substance use type: does not use ROS ROS ED Constitutional Constitutional ED: Denies chills, fever(s), subjective or sweats Gastrointestinal Gastrointestinal: Denies nausea or vomiting Genitourinary Genitourinary ED: Denies dysuria, hematuria or urinary frequency Musculoskeletal Musculoskeletal: Denies back pain or neck pain Integumentary Denies rash Neurologic Neurologic: Denies paresthesias Psychiatric Psychiatric: Denies anxiety Endocrine Endocrinology: Reports polydipsia; Denies cold intolerance or heat intolerance Hematologic/Lymphatic Hematologic/Lymphatic: Reports systems reviewed and no addt'l complaints, except as documented EXAM Physical Exam Const Vital Signs: 12/26/23 11:06 Temperature 96.7 F L Temperature Source Temporal Pulse Rate 99 Respiratory Rate 16 Blood Pressure 160/100 H Blood Pressure Mean 120 Pulse Ox 98 Oxygen Delivery Method Room Air Positive well nourished and well developed General Appearance ED: well developed, NAD and pallor HEENT Reports TM's clear and moist mucous membranes Tympanic Membrane ED: Yes TM's clear Eyes PERRL and EOMs intact bilaterally General Eye ED: Negative for pale conjunctiva or scleral icterus Neck no lymphadenopathy, supple and no JVD Resp normal respiratory effort Cardio regular rate and regular rhythm Extremity normal to inspection Extremity Narrative: Tenderness in the left ankle region. There is no effusion. She has no true discomfort with passive flexion extension. DP PT pulse are 2+ and symmetric. Patient has here on her toes. Capillary fill of her toes is normal. Sensation is normal. There is no evidence of trauma. There is no pain along distribution deep venous system. There is no leg vein distention. General Extremety ED: Yes tenderness; Negative for edema General Extremity: Negative for edema Neuro oriented x3, CN's II-XII intact bilaterally and no sensory deficits noted Neuro Narrative: Plantar and dorsiflexion of the foot is 5/5. Sensorium / Orientation: alert Psych mental status grossly normal Skin no rashes or lesions noted, no wounds and skin turgor normal General Skin Exam: pallor; Negative for elasticity normal or jaundice MDM MDM MDM Narrative Medical decision making narrative: This may represent atypical presentation of her diabetic neuropathy, pain of unknown etiology, possible ligamentous or muscular pain, history and physical is not consistent with DVT or infection. Will obtain x-ray and patient was medicated with Toradol since her creatinine was 1.0 with an estimated GFR of 60 in June 2023. Radiography Chest X-Ray - ED: Read by ED Physician (2 view x-ray of the left ankle reveals no acute fracture there appears to be a old fracture there is no widening of the mortise is no malalignment of the bones in the foot either. This has been reviewed interpreted by me at 1151.) Diagnostic Testing: Clinical Impression(s) from Imaging Studies Ankle X-Ray 12/26/23 11:48 IMPRESSION: Osteopenia with probable nondisplaced lateral malleolar tip fracture as described, with soft tissue swelling. Electronically Signed: Ej Villalobos MD at 11:58 EDT , Treatment and Re-Evaluation :: Confirmed the patient does not have history of trauma. She has no tenderness over the tip of the lateral malleolus. She states she injured her ankle when she was much younger. Discharge Plan Triage Chief Complaint: Lower Extremity Injury ED Provider: Casey Brown Dx/Rx/DC Orders Clinical Impression: Acute left ankle pain Instructions: ED Pain, Acute, Uncertain Cause Prescriptions: New naproxen 500 mg tablet 500 mg PO BID Qty: 14 0RF No Action (DME) blood sugar diagnostic Strip See Rx Instructions .ROUTE .MEDSUPPLY Qty: 100 8RF Rx Instructions: tid (DME) blood-glucose meter [OneTouch Verio Meter] Misc See Rx Instructions .ROUTE .MEDSUPPLY Qty: 1 0RF Rx Instructions: As directed multivitamin [Daily Multi-Vitamin] Tablet 1 tab PO DAILY aripiprazole 5 mg tablet 5 mg PO QHS Hafsa-C with Bioflavonoids 500-200 mg tablet 1 tab PO DAILY buspirone 30 mg tablet 30 mg PO BID quetiapine 100 mg tablet 100 mg PO DAILY (DME) FreeStyle Suri 2 [place]wood Misc See Rx Instructions .Route Qty: 1 0RF Rx Instructions: As directed Lantus Solostar U-100 Insulin 100 unit/mL (3 mL) insulin pen 60 unit SC QHS Qty: 54 1RF Farxiga 10 mg tablet 10 mg PO DAILY Qty: 90 1RF insulin lispro 100 unit/mL insulin pen 38 unit SC TID Qty: 102.6 1RF pantoprazole 40 mg tablet,delayed release (DR/EC) 40 mg PO DAILY Qty: 30 5RF riboflavin (vitamin B2) [Vitamin B-2] 100 mg tablet 200 mg PO BID atorvastatin 80 mg tablet 80 mg PO DAILY Qty: 30 5RF (DME) FreeStyle Suri 2 Sensor Kit See Rx Instructions .Route Qty: 2 5RF Rx Instructions: 1 sensor q 14 days aspirin 81 MG tablet,chewable 81 mg PO DAILY@0800 (DME) pen needle, diabetic [BD Ultra-Fine Short Pen Needle] 31 gauge x 5/16 needle See Rx Instructions .ROUTE .MEDSUPPLY Qty: 400 3RF Rx Instructions: 4 times daily (DME) lancets [OneTouch Delica Plus Lancet] 33 gauge misc See Rx Instructions .ROUTE .MEDSUPPLY Qty: 100 5RF Rx Instructions: tid (DME) OneTouch Verio test strips Strip See Rx Instructions .ROUTE .MEDSUPPLY Qty: 100 0RF Rx Instructions: tid losartan 100 mg tablet 100 mg PO DAILY Qty: 30 5RF levothyroxine 100 mcg tablet 100 mcg PO DAILY Qty: 30 5RF Ozempic 1 mg/dose (4 mg/3 mL) pen injector 1 mg subcut QWEEK Qty: 3 5RF Primary Care Provider: Saravanan Devine Referrals: Saravanan Devine DO [Primary Care Provider] - Print Language: Citizen Of [place]
[2023-12-26] MEDS: Ketorolac 30 MG/ML Syringe IM (11:48)
--- NOTE | 2023-12-26 11:48 | RAD_ITS ---
STUDY: X-RAY - LEFT ANKLE REASON FOR EXAM: Female, 63 years old. Injury. Pain. TECHNIQUE: 3 view(s) of the ankle. COMPARISON: None. FINDINGS: Osteopenia. Vague lucency projecting through the lateral malleolar tip which may represent a nondisplaced malleolar tip fracture. Normal medial and lateral malleoli. Normal tibiotalar articulation and ankle mortise. Normal visualized talus and calcaneus. The visualized subtalar, talonavicular, calcaneocuboid and tarsal articulations are normal. Soft tissue swelling overlying the lateral malleolus. RAD/Ankle min 3 Views IMPRESSION: Osteopenia with probable nondisplaced lateral malleolar tip fracture as described, with soft tissue swelling. Electronically Signed: Ej Villalobos MD at 11:58 EDT ,
== END 2023-12-26 13:05 | disposition home or self-care (01) ==
PROVIDERS: Emergency Provider Emergency Medicine; PCP Student in an Organized Health Care Education/Training Program; Visit Provider Emergency Medicine
DX: M25.572 Pain in left ankle and joints of left foot (principal); E11.9 Type 2 diabetes mellitus without complications; Z79.4 Long term (current) use of insulin; I10 Essential (primary) hypertension; E03.9 Hypothyroidism, unspecified; K21.9 Gastro-esophageal reflux disease without esophagitis; Z79.82 Long term (current) use of aspirin; Z79.899 Other long term (current) drug therapy; Z86.73 Personal history of transient ischemic attack (TIA), and cerebral infarction without residual deficits
CPT/HCPCS: 73610; 99282

== ENCOUNTER 2024-05-07 11:31 | Emergency (ER) | payer MEDICAID, SELFPAY ==
[2024-05-07 11:32] VITALS: BP 133/105; PULSE 111; RESP 16; TEMP 36.6; O2SAT 96; BMI 34.7
--- NOTE | 2024-05-07 13:34 | ED.VIS.FEGU ---
HPI <WILMER Benoit - Last Filed: 05/07/24 17:36> HPI - Female History of Present Illness Chief Complaint: Female C/O Narrative Narrative: 63-year-old female with past medical history of HTN, HLD, DM2, GERD presents with pain in her genital area that started approximately a week and a half ago on Dany Sandra. She states it feels like an area of the skin was split open. She has a vaginal odor and scant white discharge. She reports urinary frequency and burning. She is not sexually active. She states she also has low back pain radiating down to both thighs. [facility] <WILMER Benoit - Last Filed: 05/07/24 17:36> [facility] Medical History Brain tumor History of stroke Hypothyroid GERD (gastroesophageal reflux disease) Hyperlipidemia HTN (hypertension) Headache Hx of carpal tunnel syndrome Diabetes mellitus type 2 in obese History of back problems Home Medications ?Medication ?Instructions ?Recorded ?Last Taken ?Type aspirin 81 mg chewable tablet 81 mg PO DAILY@0800 02/11/18 Unknown History blood sugar diagnostic #100 ea 07/18/20 Unknown Rx blood-glucose meter (OneTouch #1 ea 07/18/20 Unknown Rx Verio Meter) multivitamin (Daily Multi-Vitamin 1 tab PO DAILY 03/02/21 Unknown History tablet) aripiprazole 5 mg tablet 5 mg PO QHS 08/20/21 Unknown History lancets 33 gauge (OneTouch Delica #100 ea 09/17/21 Unknown Rx Plus Lancet) pen needle, diabetic 31 gauge x #400 ea 09/17/21 Unknown Rx 09/17 (BD Ultra-Fine Short Pen Needle) ascorbate calcium-bioflavonoid 500 1 tab PO DAILY 03/25/22 Unknown History mg-200 mg tablet (Hafsa-C with Bioflavonoids) flash glucose scanning reader #1 ea 06/27/22 Unknown Rx (FreeStyle Suri 2 [place]) blood sugar diagnostic (OneTouch #100 ea 05/22/23 Unknown Rx Verio test strips) insulin lispro 100 unit/mL 38 unit (0.38 mL) subcut TID 06/05/23 Unknown Rx subcutaneous pen #102.6 mL buspirone 30 mg tablet 30 mg PO BID 09/04/23 Unknown History quetiapine 100 mg tablet 100 mg PO DAILY 09/04/23 Unknown History riboflavin (vitamin B2) 100 mg 200 mg PO BID 09/04/23 Unknown History tablet (Vitamin B-2) flash glucose sensor (FreeStyle #2 ea 12/10/23 Unknown Rx Suri 2 Sensor kit) levothyroxine 100 mcg tablet 100 mcg PO DAILY #30 tabs 12/10/23 Unknown Rx naproxen 500 mg tablet 500 mg PO BID #14 tabs 12/26/23 Unknown Rx dapagliflozin propanediol 10 mg 10 mg PO DAILY #90 tabs 01/12/24 Unknown Rx tablet (Farxiga) losartan 100 mg tablet 100 mg PO DAILY #90 tabs 01/12/24 Unknown Rx pantoprazole 40 mg tablet,delayed 40 mg PO DAILY #90 tabs 01/12/24 Unknown Rx release atorvastatin 80 mg tablet 80 mg PO DAILY #30 tabs 03/10/24 Unknown Rx semaglutide 2 mg/dose (8 mg/3 mL) 2 mg (0.75 mL) subcut QWEEK #3 mL 03/10/24 Unknown Rx subcutaneous pen injector (Ozempic) insulin glargine 100 unit/mL (3 60 unit (0.6 mL) subcut QPM #54 mL 03/18/24 Unknown Rx mL) subcutaneous pen (Basaglar KwikPen U-100 Insulin) clindamycin HCl 150 mg capsule 450 mg (3 x 150 mg) PO TID 7 days 05/07/24 Unknown Rx #63 caps Allergy/AdvReac Type Severity Reaction Status Date / Time sulfamethoxazole (From Allergy Shortness Verified 05/07/24 11:35 Bactrim) of breath trimethoprim (From Bactrim) Allergy Shortness Verified 05/07/24 11:35 of breath metformin AdvReac Severe Diarrhea Verified 05/07/24 11:35 guaifenesin (From Mucinex) AdvReac Nausea Verified 05/07/24 11:35 Family History Other Arthritis Bleeding disorder Depression Diabetes Heart disease Hypertension Myocardial infarction Seizures Surgical History S/P ventral herniorrhaphy Hx of tonsillectomy Hx of appendectomy History of carpal tunnel surgery Hx of knee surgery Social History Smoking Status: Never smoker substance use type: does not use ROS <WILMER Benoit - Last Filed: 05/07/24 17:36> ROS ED ROS Narrative Constitutional: Negative for fever, chills, malaise. GI: Negative for abdominal pain, nausea, vomiting. : Positive for dysuria, frequency. EXAM <WILMER Benoit - Last Filed: 05/07/24 17:36> Physical Exam Narrative Exam Narrative: CONST: Patient sitting in no acute distress. EYES: Normal inspection. NECK: Normal inspection. RESP: No respiratory distress, CTAB. CVS: Regular rate and rhythm, no murmur, no gallop. ABD: Soft and nontender, no guarding or rebound, nondistended. : Vaginal erythema and irritation. There is some crusted yellowish discharge. On speculum exam there is a small amount of thin white discharge. Normal cervix. There is no involvement of the perineum and no edema, fluctuance, crepitus, or necrosis. Back: Normal inspection, no CVA tenderness. EXTREMITIES: Normal appearance, no pedal edema. 5/5 strength in bilateral hip flexion and dorsiflexion and plantarflexion. Normal sensation, 2+ DP pulses. NEURO: Alert and answering questions appropriately. PSYCH: Normal affect. Const Vital Signs: 05/07/24 11:32 05/07/24 13:58 05/07/24 15:00 Temperature 98 F Temperature Source Oral Pulse Rate 111 H 99 85 Respiratory Rate 16 18 18 Blood Pressure 133/105 H 130/99 H 140/78 H Blood Pressure Mean 114 109 98 Pulse Ox 96 98 96 Oxygen Delivery Method Room Air Room Air Room Air 05/07/24 17:28 Temperature 98.4 F Temperature Source Pulse Rate 62 Respiratory Rate 15 Blood Pressure 121/75 H Blood Pressure Mean 90 Pulse Ox 96 Oxygen Delivery Method <Dr. Nabor Hartmann MD - Last Filed: 05/07/24 18:09> Physical Exam Const Vital Signs: 05/07/24 11:32 05/07/24 13:58 05/07/24 15:00 Temperature 98 F Temperature Source Oral Pulse Rate 111 H 99 85 Respiratory Rate 16 18 18 Blood Pressure 133/105 H 130/99 H 140/78 H Blood Pressure Mean 114 109 98 Pulse Ox 96 98 96 Oxygen Delivery Method Room Air Room Air Room Air 05/07/24 17:28 Temperature 98.4 F Temperature Source Pulse Rate 62 Respiratory Rate 15 Blood Pressure 121/75 H Blood Pressure Mean 90 Pulse Ox 96 Oxygen Delivery Method [facility] <WILMER Benoit - Last Filed: 05/07/24 17:36> [facility] Narrative Medical decision making narrative: Patient has vaginal irritation over the last 1.5 weeks. She is not sexually active. She appears well and nontoxic. She was initially tachycardic at 111 with otherwise normal vital signs. She has no abdominal or flank tenderness. There is a small amount of yellow crusted discharge over the mons pubis/upper genital area that she indicates is the area of pain. There is no open wound. There is erythema and vaginal irritation. Wet mount was negative for trichomonas. The read did not specify regarding BV so I called the microbiology lab and the tech states there were no clue cells. Her basic labs are unremarkable other than glucose of 170 consistent with history of diabetes. Urinalysis is negative. I suspect she has some sort of bacterial infection causing vaginitis and prescribed clindamycin. She is not sexually active so I did not send STI cultures. I recommended follow-up with [facility] and discussed return precautions. Lab Data Labs: Laboratory Results - last 24 hr 05/07/24 05/07/24 13:50 13:55 WBC 9.3 RBC 4.92 Hgb 15.1 H Hct 44.9 MCV 91.3 MCH 30.7 MCHC 33.6 RDW Std Deviation 47.1 H RDW Coeff of Ari 14.1 Plt Count 218 MPV 10.0 Immature Gran % (Auto) 0.200 Neut % (Auto) 57.7 Lymph % (Auto) 29.0 [place] % (Auto) 10.5 H Eos % (Auto) 1.7 Baso % (Auto) 0.9 Absolute Neuts (auto) 5.4 Absolute Lymphs (auto) 2.70 Nucleated RBC % 0 Sodium 142 Potassium 3.6 Chloride 110 H Carbon Dioxide 25.0 Anion Gap 7 BUN 12 Creatinine 0.76 Estim Creat Clear Calc 70.89 Est GFR (MDRD) Af Amer 98 Est GFR (MDRD) Non-Af 81 BUN/Creatinine Ratio 15.7 Glucose 170 H Calcium 9.5 Urine Color Yellow Urine Clarity Clear Urine pH 5.0 Ur Specific [place] 1.015 Urine Protein Negative Urine Glucose (UA) 1000 H Urine Ketones Negative Urine Occult Blood 10 H Urine Nitrite Negative Urine Bilirubin Negative Urine Urobilinogen Normal Ur Leukocyte Esterase Negative Urine RBC 0 SEEN Urine WBC 0 SEEN Ur Squamous Epith Cells 0-5 SEEN Urine Bacteria 0 SEEN Urine Mucus 1+ <Dr. Nabor Hartmann MD - Last Filed: 05/07/24 18:09> [facility] Lab Data Labs: Laboratory Results - last 24 hr 05/07/24 05/07/24 13:50 13:55 WBC 9.3 RBC 4.92 Hgb 15.1 H Hct 44.9 MCV 91.3 MCH 30.7 MCHC 33.6 RDW Std Deviation 47.1 H RDW Coeff of Ari 14.1 Plt Count 218 MPV 10.0 Immature Gran % (Auto) 0.200 Neut % (Auto) 57.7 Lymph % (Auto) 29.0 [place] % (Auto) 10.5 H Eos % (Auto) 1.7 Baso % (Auto) 0.9 Absolute Neuts (auto) 5.4 Absolute Lymphs (auto) 2.70 Nucleated RBC % 0 Sodium 142 Potassium 3.6 Chloride 110 H Carbon Dioxide 25.0 Anion Gap 7 BUN 12 Creatinine 0.76 Estim Creat Clear Calc 70.89 Est GFR (MDRD) Af Amer 98 Est GFR (MDRD) Non-Af 81 BUN/Creatinine Ratio 15.7 Glucose 170 H Calcium 9.5 Urine Color Yellow Urine Clarity Clear Urine pH 5.0 Ur Specific [place] 1.015 Urine Protein Negative Urine Glucose (UA) 1000 H Urine Ketones Negative Urine Occult Blood 10 H Urine Nitrite Negative Urine Bilirubin Negative Urine Urobilinogen Normal Ur Leukocyte Esterase Negative Urine RBC 0 SEEN Urine WBC 0 SEEN Ur Squamous Epith Cells 0-5 SEEN Urine Bacteria 0 SEEN Urine Mucus 1+ Treatment and Re-Evaluation Narrative: I have personally performed a face to face assessment of the patient and have reviewed the MERYL Note. I performed a substantive portion of the visit including all aspects of the following. My lopez findings include: History is a little over 1 week of a painful and itchy vaginal discharge. She has pain at the introitus as well as vaginal discomfort but no abdominal pain, fevers or chills, or problems urinating except for some soreness when she does so because of the lesions/discharge by her vulva. She thought initially, there was a split in her skin near her clitoris so she was putting antibiotic ointment on it but it has not been helping. Not sexually active. Exam is seen and evaluated with PA, abdomen is benign no CVA tenderness. Well-appearing. There is some dried crusty yellow discharge at the anterior aspect of her introitus near her clitoris, she has tenderness here. There is no blood or signs of cellulitis skin. The labia are otherwise normal. See above for speculum exam. Medical Decison Making bacterial vaginosis would make the most sense here although she does not have an obvious reason for it but she has no clue cells according to the paint laboratory technician who evaluated her swab. We are going to treat her for nonspecific vaginitis with clindamycin and encourage follow-up with gynecology, she was given those resources by staff. Other additions or changes: [None] Discharge Plan Triage Chief Complaint: Female C/O ED Midlevel Provider: Sonali Narayan ED Provider: Nabor Hartmann Dx/Rx/DC Orders Clinical Impression: Vaginitis Instructions: Preventing Vaginitis Prescriptions: New clindamycin HCl 150 mg capsule 450 mg PO TID 7 Days Qty: 63 0RF No Action (DME) blood sugar diagnostic Strip See Rx Instructions .ROUTE .MEDSUPPLY Qty: 100 8RF Rx Instructions: tid (DME) blood-glucose meter [OneTouch Verio Meter] Misc See Rx Instructions .ROUTE .MEDSUPPLY Qty: 1 0RF Rx Instructions: As directed multivitamin [Daily Multi-Vitamin] Tablet 1 tab PO DAILY aripiprazole 5 mg tablet 5 mg PO QHS Hafsa-C with Bioflavonoids 500-200 mg tablet 1 tab PO DAILY buspirone 30 mg tablet 30 mg PO BID quetiapine 100 mg tablet 100 mg PO DAILY (DME) FreeStyle Suri 2 [place] Misc See Rx Instructions .Route Qty: 1 0RF Rx Instructions: As directed insulin lispro 100 unit/mL insulin pen 38 unit SC TID Qty: 102.6 1RF riboflavin (vitamin B2) [Vitamin B-2] 100 mg tablet 200 mg PO BID (DME) FreeStyle Suri 2 Sensor Kit See Rx Instructions .Route Qty: 2 5RF Rx Instructions: 1 sensor q 14 days Ozempic 2 mg/dose (8 mg/3 mL) pen injector 2 mg subcut QWEEK Qty: 3 5RF atorvastatin 80 mg tablet 80 mg PO DAILY Qty: 30 5RF aspirin 81 MG tablet,chewable 81 mg PO DAILY@0800 naproxen 500 mg tablet 500 mg PO BID Qty: 14 0RF (DME) pen needle, diabetic [BD Ultra-Fine Short Pen Needle] 31 gauge x 5/16 needle See Rx Instructions .ROUTE .MEDSUPPLY Qty: 400 3RF Rx Instructions: 4 times daily (DME) lancets [OneTouch Delica Plus Lancet] 33 gauge misc See Rx Instructions .ROUTE .MEDSUPPLY Qty: 100 5RF Rx Instructions: tid (DME) OneTouch Verio test strips Strip See Rx Instructions .ROUTE .MEDSUPPLY Qty: 100 0RF Rx Instructions: tid levothyroxine 100 mcg tablet 100 mcg PO DAILY Qty: 30 5RF Farxiga 10 mg tablet 10 mg PO DAILY Qty: 90 1RF losartan 100 mg tablet 100 mg PO DAILY Qty: 90 1RF pantoprazole 40 mg tablet,delayed release (DR/EC) 40 mg PO DAILY Qty: 90 1RF insulin glargine [Basaglar KwikPen U-100 Insulin] 100 unit/mL (3 mL) insulin pen 60 unit subcut QPM Qty: 54 1RF Primary Care Provider: Saravanan Devine Referrals: Saravanan Devine DO [Primary Care Provider] - Activity Restrictions/Additional Instructions: I prescribed antibiotics to treat the vaginal infection. Start using unscented soap such as Dove to avoid irritation. I also recommend cotton underwear. Follow-up with a packing line operator. Print Language: French Disposition Disposition: Home, Self Care Discharge Date/Time: 05/07/24 17:30
[2024-05-07 13:58] VITALS: BP 130/99; PULSE 99; RESP 18; O2SAT 98
[2024-05-07 14:00] LABS: Absolute Neutrophil Count 5.4 X10^3/uL (2.0-7.7); Basophil# 0.08 X10^3/uL; Basophil% 0.9 % (0-1); Eosinophil# 0.16 X10^3/uL; Eosinophils% 1.7 % (0-5); Hematocrit 44.9 % (37-47); Hemoglobin 15.1 g/dL (12.0-15.0); Mean Corp Hgb Conc 33.6 g/dL (32-36); Mean Corpuscular Hgb 30.7 pg (27.0-32.0); Mean Corpuscular Volume 91.3 fL (81-99); Monocyte# 0.98 X10^3/uL; Monocyte% 10.5 % (0-10); NRBC Flagged by Analyzer 0 % (0-5); Neutrophil # 5.38 X10^3/uL (2.7-7.7); Neutrophil % 57.7 % (47-70); Platelet Count 218 K/mm3 (150-450); RBC Distribution Width CV 14.1 % (11.6-14.6); RBC Distribution Width SD 47.1 fl (35.1-43.9); Red Blood Count 4.92 M/mm3 (4.2-5.4); White Blood Count 9.3 K/mm3 (4.4-11.0)
[2024-05-07] MEDS: 0.9% Normal Saline (1000mL) 1,000 ML 999 ML IV (14:02)
[2024-05-07 14:06] LABS: Bacteria 0 SEEN /hpf (None Seen); Red Blood Cells-Urine 0 SEEN /hpf (0-5); White Blood Cells 0 SEEN /hpf (0-5)
[2024-05-07 14:11] LABS: Color, Urine Yellow (Yellow); Glucose, Dipstick 1000 mg/dl (Normal); Ketone-Dipstick Negative (Negative); Leukocyte Esterase-Dipstick Negative /ul (Negative); Nitrite-Dipstick Negative (Negative); Occult Blood-Urine 10 /ul (Negative); Protein-Dipstick Negative (Negative); Specific Gravity, Urine 1.015 (1.002-1.030); Urine Bilirubin Dipstick Negative (Negative); Urine Clarity Clear (Clear); Urine Urobilinogen Normal (Normal)
[2024-05-07 14:20] LABS: Mucous, Urine 1+ /hpf (<or=2+); Squamous Epithelial Cells - UA 0-5 SEEN /hpf (5-10)
[2024-05-07 14:48] LABS: Anion Gap 7 (5-15); BUN 12 mg/dL (7-18); BUN/Creat Ratio 15.7 RATIO (10-20); Calcium,Total 9.5 mg/dL (8.5-10.1); Chloride 110 mmol/L (98-107); Creatinine, Serum 0.76 mg/dL (0.55-1.02); EST Glomerular Filtration Rate 81 mL/min (>60); Est Glom Filt Rate - Afr Amer 98 mL/min (>60); Estimated Creatinine Clearance 70.89 ml/min; Glucose 170 mg/dL (74-106); Potassium 3.6 mmol/L (3.5-5.1); Sodium Level 142 mmol/L (136-145)
[2024-05-07 15:00] VITALS: BP 140/78; PULSE 85; RESP 18; O2SAT 96
[2024-05-07] MEDS: Ketorolac 15 MG/ML Vial IV (16:15)
[2024-05-07] MEDS: Clindamycin HCl 150 MG Capsule 450 MG PO (17:23)
[2024-05-07 17:28] VITALS: BP 121/75; PULSE 62; RESP 15; TEMP 36.9; O2SAT 96
== END 2024-05-07 17:30 | disposition home or self-care (01) ==
PROVIDERS: Physician Assistant; Emergency Provider Emergency Medicine; PCP Student in an Organized Health Care Education/Training Program; Visit Provider Emergency Medicine
DX: N76.0 Acute vaginitis (principal); E11.9 Type 2 diabetes mellitus without complications; Z79.4 Long term (current) use of insulin; E78.5 Hyperlipidemia, unspecified; I10 Essential (primary) hypertension; Z90.49 Acquired absence of other specified parts of digestive tract; Z79.899 Other long term (current) drug therapy; E03.9 Hypothyroidism, unspecified; Z79.890 Hormone replacement therapy; K21.9 Gastro-esophageal reflux disease without esophagitis; Z79.85 Long-term (current) use of injectable non-insulin antidiabetic drugs
CPT/HCPCS: 80048; 81001; 85025; 87210; 96361; 96374; 99284; P9612; A4216